=== PATIENT | female | born 1970 | race African-American/Black ===

== ENCOUNTER 2020-08-07 09:48 | Outpatient (REF) | payer MEDICAID, SELFPAY ==
--- NOTE | ~2020-08-07 | XR_ITS ---
EXAMINATION: XR KNEE, LEFT CLINICAL INFORMATION: Chronic knee pain, worsening the past few months COMPARISON: None TECHNIQUE: Four views of the left knee. This includes AP upright view. FINDINGS: No acute fracture or subluxation. There is moderate narrowing at the medial and patellofemoral compartments. Prominent tricompartmental marginal osteophytes. No joint effusion. The soft tissues are unremarkable. XR/XR knee LT 4V IMPRESSION: Moderate to severe tricompartmental degenerative changes, greatest at the medial and patellofemoral compartments. Prominent osteophytes are present.
== END 2020-08-07 09:49 | disposition home or self-care (01) ==
LOC: HO.XRAY 09:48
PROVIDERS: PCP Nurse Practitioner Family; Visit Provider Nurse Practitioner Family
DX: M25.562 Pain in left knee (principal)
CPT/HCPCS: 73564

== ENCOUNTER → 2020-08-30 09:54 | Outpatient (BNVA) | payer MEDICAID, SELFPAY | PROVIDERS: Visit Provider Nurse Practitioner ==

== ENCOUNTER 2020-09-01 08:12 | Outpatient (REF) | payer MEDICAID, SELFPAY | END 2020-09-01 08:13 | disposition home or self-care (01) | LOC: HO.MDS 08:12 | PROVIDERS: PCP Nurse Practitioner Family; Visit Provider Internal Medicine | DX: D50.9 Iron deficiency anemia, unspecified (principal) | CPT/HCPCS: 96365; 96366; J1200; J1750; Q0163 ==

== ENCOUNTER 2021-02-12 09:19 | Outpatient (REF) | payer MEDICAID, SELFPAY ==
[2021-02-12 16:23] LABS: CT PCR NOT DETECTED (Not Detect.); NG PCR NOT DETECTED (Not Detect.)
== END 2021-02-12 09:20 | disposition home or self-care (01) ==
LOC: HO.LAB 09:19
PROVIDERS: Visit Provider Obstetrics & Gynecology
DX: Z01.419 Encounter for gynecological examination (general) (routine) without abnormal findings (principal); N92.0 Excessive and frequent menstruation with regular cycle; N93.9 Abnormal uterine and vaginal bleeding, unspecified
CPT/HCPCS: 87491; 87591

== ENCOUNTER 2021-02-14 10:25 | Outpatient (REF) | payer MEDICAID, SELFPAY ==
--- NOTE | ~2021-02-14 | US_ITS ---
EXAMINATION: US PELVIS CLINICAL INFORMATION: Abnormal uterine and vaginal bleeding. COMPARISON: None TECHNIQUE: Ultrasound of the pelvis is performed using both transabdominal and transvaginal transducers along with Doppler. Transvaginal imaging is performed due to inadequate visualization transabdominally. FINDINGS: The uterus is anteverted and retroflexed measuring 12.9 cm in length, 5.4 cm in AP and 8.1 cm in transverse dimension. There is a hypoechoic lesion in the upper anterior uterus measuring 3.7 x 2.6 x 3.0 cm consistent with fibroid. Previously it measured 3.0 3.1 x 2.6 cm. A second lesion in the left fundus measures 5.3 x 5.6 x 4.6 cm. Previously it measured 2.9 x 2.2 x 3.7 cm. The endometrial thickness measures 0.9 cm. The right ovary measures 1.9 x 1.4 x 2.3 cm on the transabdominal view. Previously it measured 3.9 x 2.0 x 2.1 cm. The left ovary is not seen transabdominally. On transvaginal examination it measures 5.8 x 2.3 x 4.4 cm. Previously it measured 4.7 x 2.2 x 3.1 cm. There is an anechoic cyst measuring 2.9 x 2.1 x 2.9 cm. There is an adjacent hyperechoic area measuring 0.9 x 0.7 x 0.8 cm, likely a dermoid. US/US pelvic and transvaginal IMPRESSION: There are two uterine fibroids visualized. The left fundal fibroid has slightly increased in size. The right ovary is unremarkable. Suspect left ovarian dermoid with adjacent cyst. No free fluid in the cul-de-sac.
== END 2021-02-14 10:26 | disposition home or self-care (01) ==
LOC: HO.US 10:25
PROVIDERS: Visit Provider Obstetrics & Gynecology
DX: N93.9 Abnormal uterine and vaginal bleeding, unspecified (principal)
CPT/HCPCS: 76830; 76856

== ENCOUNTER 2021-02-15 08:13 | Outpatient (REF) | payer MEDICAID, SELFPAY ==
--- NOTE | ~2021-02-15 | XR_ITS ---
EXAMINATION: XR KNEE STANDING BILATERAL XR KNEE RIGHT XR KNEE LEFT CLINICAL INFORMATION: Right and left knee pain COMPARISON: Radiographs of left knee from 08/07/2020 TECHNIQUE: AP standing view both knees Right knee, 2 views (lateral and patellar sunrise views) Left knee, 2 views FINDINGS: AP STANDING VIEW BILATERAL KNEES Intact metallic abena of the proximal right tibial metadiaphysis, presumably from remote healed osteotomy or treatment of old fracture. Also, there appears to be an old, healed fracture of the mildly deformed proximal right fibular diaphysis. There is abnormal [id number] sloping of the right medial tibial plateau. Tricompartmental osteophyte formation from moderate-to severe osteoarthritis of the right knee. At the left degenerated knee, there is chronic, severe loss of the medial tibiofemoral joint space (with genu varus deformity) and tricompartmental osteophyte formation. RIGHT KNEE The findings in the right knee are as described above. There is tricompartmental osteoarthritis and apparent trace knee joint effusion. No acute fracture or subluxation. The sunrise view shows the patella to be well-positioned within the trochlear groove. LEFT KNEE No acute abnormality compared to 08/07/2020. No fracture or subluxation. No joint effusion. Small, 0.4 cm ossific body is present in the posterior knee joint. XR/XR knee RT 2V IMPRESSION: At the left knee, there is chronic, severe osteoarthritis of the patellofemoral and medial tibiofemoral compartments, and moderate osteoarthritis of the lateral tibiofemoral compartment. At the right knee, there is moderate to severe tricompartmental osteoarthritis, chronic posttraumatic deformity of the proximal tibia and fibula, and abnormal medial downsloping of the medial tibial plateau.
--- NOTE | ~2021-02-15 | XR_ITS ---
EXAMINATION: XR KNEE STANDING BILATERAL XR KNEE RIGHT XR KNEE LEFT CLINICAL INFORMATION: Right and left knee pain COMPARISON: Radiographs of left knee from 08/07/2020 TECHNIQUE: AP standing view both knees Right knee, 2 views (lateral and patellar sunrise views) Left knee, 2 views FINDINGS: AP STANDING VIEW BILATERAL KNEES Intact metallic abena of the proximal right tibial metadiaphysis, presumably from remote healed osteotomy or treatment of old fracture. Also, there appears to be an old, healed fracture of the mildly deformed proximal right fibular diaphysis. There is abnormal [id number] sloping of the right medial tibial plateau. Tricompartmental osteophyte formation from moderate-to severe osteoarthritis of the right knee. At the left degenerated knee, there is chronic, severe loss of the medial tibiofemoral joint space (with genu varus deformity) and tricompartmental osteophyte formation. RIGHT KNEE The findings in the right knee are as described above. There is tricompartmental osteoarthritis and apparent trace knee joint effusion. No acute fracture or subluxation. The sunrise view shows the patella to be well-positioned within the trochlear groove. LEFT KNEE No acute abnormality compared to 08/07/2020. No fracture or subluxation. No joint effusion. Small, 0.4 cm ossific body is present in the posterior knee joint. XR/XR knee LT 2V IMPRESSION: At the left knee, there is chronic, severe osteoarthritis of the patellofemoral and medial tibiofemoral compartments, and moderate osteoarthritis of the lateral tibiofemoral compartment. At the right knee, there is moderate to severe tricompartmental osteoarthritis, chronic posttraumatic deformity of the proximal tibia and fibula, and abnormal medial downsloping of the medial tibial plateau.
--- NOTE | ~2021-02-15 | XR_ITS ---
EXAMINATION: XR KNEE STANDING BILATERAL XR KNEE RIGHT XR KNEE LEFT CLINICAL INFORMATION: Right and left knee pain COMPARISON: Radiographs of left knee from 08/07/2020 TECHNIQUE: AP standing view both knees Right knee, 2 views (lateral and patellar sunrise views) Left knee, 2 views FINDINGS: AP STANDING VIEW BILATERAL KNEES Intact metallic abena of the proximal right tibial metadiaphysis, presumably from remote healed osteotomy or treatment of old fracture. Also, there appears to be an old, healed fracture of the mildly deformed proximal right fibular diaphysis. There is abnormal [id number] sloping of the right medial tibial plateau. Tricompartmental osteophyte formation from moderate-to severe osteoarthritis of the right knee. At the left degenerated knee, there is chronic, severe loss of the medial tibiofemoral joint space (with genu varus deformity) and tricompartmental osteophyte formation. RIGHT KNEE The findings in the right knee are as described above. There is tricompartmental osteoarthritis and apparent trace knee joint effusion. No acute fracture or subluxation. The sunrise view shows the patella to be well-positioned within the trochlear groove. LEFT KNEE No acute abnormality compared to 08/07/2020. No fracture or subluxation. No joint effusion. Small, 0.4 cm ossific body is present in the posterior knee joint. XR/XR knee standing BI IMPRESSION: At the left knee, there is chronic, severe osteoarthritis of the patellofemoral and medial tibiofemoral compartments, and moderate osteoarthritis of the lateral tibiofemoral compartment. At the right knee, there is moderate to severe tricompartmental osteoarthritis, chronic posttraumatic deformity of the proximal tibia and fibula, and abnormal medial downsloping of the medial tibial plateau.
== END 2021-02-15 08:14 | disposition home or self-care (01) ==
LOC: HO.HOSX 08:13
PROVIDERS: Visit Provider Physician Assistant
DX: M17.12 Unilateral primary osteoarthritis, left knee (principal); M25.561 Pain in right knee
CPT/HCPCS: 73560; 73565; 99202

== ENCOUNTER 2021-03-07 10:06 | Outpatient (REF) | payer MEDICAID, SELFPAY | END 2021-03-07 10:07 | disposition home or self-care (01) | LOC: HO.LAB 10:06 | PROVIDERS: Visit Provider Obstetrics & Gynecology | DX: N92.0 Excessive and frequent menstruation with regular cycle (principal) | CPT/HCPCS: 58100; 88305 ==

== ENCOUNTER 2021-03-16 10:28 | Outpatient (REF) | payer MEDICAID, SELFPAY ==
--- NOTE | ~2021-03-16 | MM_ITS ---
EXAMINATION: MM SCREENING DIGITAL BREAST TOMOSYNTHESIS, BILATERAL CLINICAL INFORMATION: Screening. Asymptomatic. Benign left stereotactic biopsy 05/12/2018 (Benign breast tissue with foci of usual ductal hyperplasia and associated microcalcifications and nonspecific periductal and perivascular chronic inflammation. Additional tissue received shows benign fibrofatty breast tissue without microcalcifications). The lifetime risk of breast cancer based on the Tyrer-Cuzick Model is 11%. COMPARISON: Mammography: 12/31/2018, 11/27/2018, 05/12/2018, 04/30/2018, 10/23/2017 TECHNIQUE: Digital breast tomosynthesis is performed in both the craniocaudal and mediolateral oblique views along with computer-aided detection (CAD). Synthesized 2D images are generated from the tomosynthesis. FINDINGS: There are scattered areas of fibroglandular density (ACR BI-RADS breast composition Category b). There are no significant masses, abnormal calcifications, or other abnormalities. Parenchymal pattern is similar to prior studies. No developing density. There are 2 biopsy clip markers left breast mid upper outer quadrant and mid 6:00 position, respectively. No significant changes. MM/MM tomosynthesis screening BI IMPRESSION: No mammographic evidence of malignancy. ASSESSMENT: BI-RADS 1: Negative RECOMMENDATION: Routine annual mammography screening. This patient's information was entered into a reminder system with a target due date for their next mammogram.
== END 2021-03-16 10:29 | disposition home or self-care (01) ==
LOC: HO.MAMMO 10:28
PROVIDERS: Visit Provider Obstetrics & Gynecology
DX: Z12.31 Encounter for screening mammogram for malignant neoplasm of breast (principal)
CPT/HCPCS: 77063; 77067

== ENCOUNTER 2021-04-04 09:42 | Outpatient (REF) | payer MEDICAID, SELFPAY ==
[2021-04-04 10:49] LABS: Hematocrit 39.3 % (37.0-47.0); Hemoglobin 12.2 g/dl (12.0-16.0); Mean Corpuscular Hemoglobin 28.4 pg (27.0-33.0); Mean Corpuscular Volume 91.6 fL (80.0-98.0); Mean Platelet Volume 11.4 fL (9.4-12.3); Platelet Count 218 X10*3/uL (160-400); Red Blood Count 4.29 X10*6/uL (4.20-5.50); Red Cell Distribution Width 13.9 % (11.0-16.0); White Blood Count 13.3 X10*3/uL (4.8-10.8)
[2021-04-05 12:52] LABS: CA-125 46 U/mL (<35)
== END 2021-04-04 09:43 | disposition home or self-care (01) ==
LOC: HO.LAB 09:42
PROVIDERS: Visit Provider Obstetrics & Gynecology
DX: N92.0 Excessive and frequent menstruation with regular cycle (principal); N83.292 Other ovarian cyst, left side; D21.9 Benign neoplasm of connective and other soft tissue, unspecified
CPT/HCPCS: 36415; 85027; 86304; 99212

== ENCOUNTER → 2021-04-05 14:06 | Outpatient (BNVA) | payer MEDICAID, SELFPAY | PROVIDERS: Visit Provider Obstetrics & Gynecology ==

== ENCOUNTER 2021-11-26 08:03 | Outpatient (REF) | payer MEDICAID, SELFPAY | END 2021-11-26 08:04 | disposition home or self-care (01) | LOC: HO.MDS 08:03 | PROVIDERS: Visit Provider Internal Medicine | DX: D50.9 Iron deficiency anemia, unspecified (principal) | CPT/HCPCS: 96365; 96366; J1200; J1750; Q0163 ==

== ENCOUNTER 2022-03-21 10:13 | Outpatient (REF) | payer MEDICAID, SELFPAY ==
--- NOTE | ~2022-03-21 | MM_ITS ---
EXAMINATION: MM SCREENING DIGITAL BREAST TOMOSYNTHESIS, BILATERAL CLINICAL INFORMATION: Screening. Asymptomatic. The lifetime risk of breast cancer based on the Tyrer-Cuzick Model is 11%. COMPARISON: Mammography: 03/16/2021, 12/31/2018, 11/27/2018, 05/12/2018, 04/30/2018. TECHNIQUE: Digital breast tomosynthesis is performed in both the craniocaudal and mediolateral oblique views along with computer-aided detection (CAD). Synthesized 2D images are generated from the tomosynthesis. Additional left CC and left MLO views are provided. FINDINGS: There are scattered areas of fibroglandular density (ACR BI-RADS breast composition Category b). There are no significant masses, abnormal calcifications, or other abnormalities. Parenchymal pattern is similar to prior studies. There is no developing density or architectural abnormality. There are biopsy clip markers again noted posterior upper outer left breast and mid central 6:00 position. The axilla and skin contours are unremarkable. No significant changes. MM/MM tomosynthesis screening BI IMPRESSION: No mammographic evidence of malignancy. ASSESSMENT: BI-RADS 1: Negative RECOMMENDATION: Routine annual mammography screening. This patient's information was entered into a reminder system with a target due date for their next mammogram.
== END 2022-03-21 10:14 | disposition home or self-care (01) ==
LOC: HO.MAMMO 10:13
PROVIDERS: Visit Provider Obstetrics & Gynecology
DX: Z12.31 Encounter for screening mammogram for malignant neoplasm of breast (principal)
CPT/HCPCS: 77063; 77067

== ENCOUNTER → 2022-07-09 09:53 | Outpatient (BNVA) | payer MEDICAID, SELFPAY | PROVIDERS: PCP Registered Nurse; Visit Provider Obstetrics & Gynecology | DX: R10.2 Pelvic and perineal pain (principal) | CPT/HCPCS: 99212 ==

== ENCOUNTER 2022-07-17 14:59 | Outpatient (REF) | payer MEDICAID, SELFPAY ==
[2022-07-17 16:16] LABS: Blood Urea Nitrogen 11 mg/dL (9-16); Estimated Glomerular Filt Rate > 60
== END 2022-07-17 15:00 | disposition home or self-care (01) ==
LOC: HO.LAB 14:59
PROVIDERS: Visit Provider Obstetrics & Gynecology
DX: R10.2 Pelvic and perineal pain (principal)
CPT/HCPCS: 36415; 82565; 84520

== ENCOUNTER 2022-07-29 09:38 | Outpatient (REF) | payer MEDICAID, SELFPAY ==
--- NOTE | ~2022-07-29 | CT_ITS ---
EXAMINATION: CT PELVIS WITH CONTRAST CLINICAL INFORMATION: R10.2 - Pelvic and perineal pain. History left fluoroscopic hysterectomy, bilateral bilateral salpingectomy and left oophorectomy, benign pathology. Age 52. COMPARISON: Ultrasound pelvis 02/14/2021 TECHNIQUE: Helical scanning was performed with submillimeter collimation through the pelvis with the use of oral contrast and during bolus intravenous injection of 85 mL of Omnipaque 350 intravenous contrast. Sagittal and coronal multiplanar 2-D reconstructions were obtained. This CT examination was performed using dose optimization techniques as appropriate, variously including the following: *Automated exposure control *Adjustment of mA and/or kV according to patient size (this includes techniques or standardized protocols for targeted exams where dose is matched to indication/reason for exam; i.e. extremities or head) *Use of iterative reconstruction technique DLP: 769 mGy-cm FINDINGS: There has been prior hysterectomy, bilateral salpingectomy, and left oophorectomy. There are no inflammatory changes in the pelvis or ascites or solid pelvic mass. The perineum is unremarkable. There is a smooth oval benign cyst upper right lateral pelvis 14 HU attenuation and 2.4 cm in diameter, higher than expected for ovarian cyst, possibly a mesenteric or enteric cyst. There are no inflammatory changes in the bowel or mesentery. No bowel wall thickening. No ascites. Incidental intraperitoneal tubing anterior right lower quadrant corresponds to the gastric lap band procedure noted on coronal topogram. No retroperitoneal, deep pelvic, or inguinal adenopathy. No inguinal hernia. Vasculature is unremarkable. Small fat-containing umbilical hernia measures approximately 3.1 x 1.6 x 2.6 cm. No acute bony abnormality. There are degenerative facet changes lower lumbar spine. CT/CT pelvis w IV con IMPRESSION: 1. Prior hysterectomy and left oophorectomy. No inflammatory changes or ascites. 2. Small benign cyst upper right lateral pelvis 2.4 cm, higher than expected for ovarian, possibly enteric or mesenteric cyst. 3. Small fat-containing umbilical hernia 3.1 x 1.6 x 2.6 cm.
[2022-07-29] MEDS: iohexoL 350 MG/ML 100 ML INFUS..BTL 85 ML IV (12:04)
[2022-07-29] MEDS: Barium Sulfate Oral (Mocha) 450 ML ORAL.SUSP PO (12:06)
== END 2022-07-29 09:39 | disposition home or self-care (01) ==
LOC: HO.CT 09:38
PROVIDERS: PCP Registered Nurse; Visit Provider Obstetrics & Gynecology
DX: R10.2 Pelvic and perineal pain (principal)
CPT/HCPCS: 72193; Q9967

== ENCOUNTER → 2022-08-12 08:41 | Outpatient (BNVA) | payer MEDICAID, SELFPAY | PROVIDERS: Visit Provider Obstetrics & Gynecology | DX: K42.9 Umbilical hernia without obstruction or gangrene (principal) | CPT/HCPCS: 99212 ==

== ENCOUNTER → 2022-08-23 09:25 | Outpatient (BNVA) | payer MEDICAID, SELFPAY | PROVIDERS: Referring Provider Obstetrics & Gynecology; Visit Provider Surgery | DX: K42.9 Umbilical hernia without obstruction or gangrene (principal) | CPT/HCPCS: 99202 ==

== ENCOUNTER 2022-09-06 06:06 | Day surgery (SDC) | payer MEDICAID, SELFPAY ==
[2022-09-03 10:11] VITALS: BMI 43.4
[2022-09-06] VITALS (7 sets, daily range): BP systolic 115–129; BP diastolic 62–82; PULSE 58–75; RESP 16–20; TEMP 36.1–37.3; O2SAT 98–99
--- NOTE | 2022-09-06 05:55 | MHC.SHP ---
Pre-Procedural Eval Section A Date of Service: 09/06/22 The patient is an INPATIENT: No Changes since office visit: No Cold of Flu in the past 2 weeks, No New Medical Problems, No Changes in Medication and No Patient answered all questions Section B Chief Complaint: Umbilical hernia without obstruction or gangrene Allergies: Allergies Allergy/AdvReac Type Severity Reaction Status Date / Time acetaminophen [From PERCOCET] Allergy Intermediate HALLUCINATI Verified 08/23/22 09:38 ONS oxycodone [From PERCOCET] Allergy Intermediate HALLUCINATI Verified 08/23/22 09:38 ONS Plan I have reviewed the history and physical and performed a pertinent physical examination on my patient. No changes have occurred unless specified. Time Spent With Patient Time: Total time managing care of this patient today ____ minutes.
[2022-09-06] MEDS: Lactated Ringers 1,000 ML 50 ML IVCONT (06:49)
--- NOTE | 2022-09-06 07:25 | HO.ANESPROP2 ---
[facility] Active Problems Active Problems: All Active Problems (Updated 08/12/22 @ 09:05 by Tavares Alvarado MD) Umbilical hernia (Acute) Pelvic pain (Acute) Anemia (Chronic) Chronic superficial gastritis with hemorrhage (Acute) Esophageal ulcer (Acute) Tubular adenoma of colon (Acute) Well woman exam (Acute) Menorrhagia (Acute) Arthritis of left knee (Acute) Complex cyst of left ovary (Acute) Myoma (Acute) Past Medical History Medical History Anemia Gastritis HTN (hypertension) IBS (irritable bowel syndrome) Morbid obesity Tubular adenoma Family History Family History Father Prostate cancer Maternal Aunt Breast cancer Brother Prostate cancer Family history of problems with anesthesia: No Surgical History Surgical History H/O right knee surgery Hx of section Hx of laparoscopic gastric banding S/P partial hysterectomy Tubal ligation status History of Problems with Anesthesia: No Social History Social History Household Members: None Housing: Apartment Alcohol intake: never Patient Tobacco Use Status: Never used Tobacco Use of substances other than those prescribed or required for medical reasons: No Are you DNR?: No Advance Directives: No Advance Directives Information Provided: No Recently lost weight without trying: No Nutrition Risks: No Nutritional Risk service: No Current occupational status: disabled Current occupation: rt handed Meds Allergies Allergy/AdvReac Type Severity Reaction Status Date / Time acetaminophen [From PERCOCET] Allergy Intermediate HALLUCINATI Verified 08/23/22 09:38 ONS oxycodone [From PERCOCET] Allergy Intermediate HALLUCINATI Verified 08/23/22 09:38 ONS Active Medications: Current Medications Lactated Ringer's (Lr) 1,000 mls @ 50 mls/hr IVCONT .Q20H RAMSES Last Admin: 09/06/22 06:49 Dose: 50 mls/hr Home Medications Medication Instructions Recorded Confirmed Last Taken Type bupropion HCl 75 mg tablet 150 mg PO DAILY 08/21/20 09/06/22 09/06/22 History cholecalciferol (vitamin D3) 50 50 mcg PO DAILY 08/21/20 08/23/22 Unknown History mcg (2,000 unit) tablet (Vitamin D3) famotidine 20 mg tablet 20 mg PO DAILY 08/21/20 08/23/22 Unknown History omeprazole magnesium 20 mg 20 mg PO DAILY 08/21/20 09/06/22 09/06/22 History capsule,delayed release sertraline 25 mg tablet 25 mg PO DAILY 08/21/20 08/23/22 Unknown History hydroxyzine HCl 50 mg tablet 50 mg PO Q6-8H anxiety 11/13/21 09/06/22 09/06/22 History Exam Exam Date and Time: September 06, 2022 0725 Height,Weight and Vital Signs: Height 5 ft 1.5 in Weight 105.999 kg Last Vital Signs Temp 99.2 F 09/06/22 06:35 Pulse 75 09/06/22 06:35 Resp 16 09/06/22 06:35 BP 116/82 09/06/22 06:35 Pulse Ox 98 09/06/22 06:35 O2 Del Method Room Air 09/06/22 06:35 Airway Mallampati Class: II TM Dist: >3cm Neck ROM: Full Denture: Upper Loose/Missing/Broken Teeth: Yes and Lower Assessment and Plan Assessment Anesthesia Assessment: Anesthesia Plan Discussed and Chart Reviewed Final Anesthetic Review Family History of Problems with Anesthesia: No History of Problems with Anesthesia: No NPO: Yes ASA Class: III Final Preanesthetic Review: No Changes in Pt Med Stat, Meds/Allgs Chart Reviewed, Consent Obtained/Reviewed and Anes Risks/Benef Reviewed Patient Risk: Low Procedure Risk: Low Anesthetic Plan Anesthetic Plan: GA Disposition: Standard PACU
--- NOTE | 2022-09-06 08:17 | P.OP_ITS ---
Operative Note Operative Note Date of Service: 09/06/22 Narrative: Preoperative diagnosis: []Incarcerated umbilical hernia Postop diagnosis: [] same Procedure [] repair incarcerated umbilical hernia with Bard mesh Surgeon: [] Kyree Senior Clinical Data Manager: [] gillian Hughes Type of Anesthesia: [] general Indication for surgery: [] symptomatic umbilical hernia Findings: [] incarcerated umbilical hernia with omental contents. Markedly corpulent abdomen Patient is brought to the operating room, placed on the operating table in supine position, and after an adequate level of general anesthesia was induced, the patient's abdomen which was quite corpulent was prepped and draped in usual sterile fashion. Using an infraumbilical curvilinear incision, this carried down through skin, subcutaneous tissue, down to the fascia where a hernia sac with incarcerated omental contents was found. Sac was circumferentially dissected free from T the posterior aspect of the umbilicus and the fascia and that opened. Omental contents were amputated along with the hernia sac. The hernia defect was circumferentially dissected clear of any adhesions. Bard mesh was placed in the defect and the superficial layer of the mesh was circumferentially sutured to the surrounding fascia using interrupted 0 tycron sutures. At completion the procedure, mesh was in good position with no tension. Wound was irrigated, and hemostasis secured. The wound Was closed in the following manner; posterior aspect of the umbilicalicus was tacked to the wound floor using interrupted 2-0 Vicryl sutures. Interrupted inverted deep dermal 2-0 Vicryl sutures followed by running subcuticular 4-0 Monocryl were placed. Wound was infiltrated with 0.5% Marcaine with epinephrine a completion. Steri-Strips and sterile dressing was applied. Sponge, needle, and instrument counts were reported to be correct. Patient tolerated the procedure well and emerged from anesthesia stable condition. EBL minimum
== END 2022-09-06 10:00 | disposition home or self-care (01) ==
PROVIDERS: PCP Registered Nurse; Visit Provider Surgery
PROC: (CPT 49594; principal; 2022-09-06 07:30)
DX: K42.0 Umbilical hernia with obstruction, without gangrene (principal); E65 Localized adiposity; E66.01 Morbid (severe) obesity due to excess calories; Z68.41 Body mass index [BMI] 40.0-44.9, adult; I10 Essential (primary) hypertension; K58.9 Irritable bowel syndrome, unspecified; Z79.899 Other long term (current) drug therapy; Z88.8 Allergy status to other drugs, medicaments and biological substances; Z98.84 Bariatric surgery status; Z90.710 Acquired absence of both cervix and uterus
CPT/HCPCS: 49594; 88304; C1781; J0690; J1100; J1885; J2250; J2405; J3010

== ENCOUNTER → 2022-09-13 09:51 | Outpatient (BNVA) | payer MEDICAID, SELFPAY | PROVIDERS: PCP Registered Nurse; Visit Provider Surgery ==

== ENCOUNTER 2022-10-30 13:31 | Outpatient (REF) | payer MEDICAID, SELFPAY ==
[2022-10-30 18:41] LABS: CT PCR NOT DETECTED (Not Detect.); NG PCR NOT DETECTED (Not Detect.)
[2022-10-31 08:55] LABS: BV Int Neg Control Negative (Negative); BV Int Pos Control Positive (Positive)
[2022-11-02 01:04] LABS: HPV mRNA E6/E7 rflx Not Detected (Not Detected)
== END 2022-10-30 13:32 | disposition home or self-care (01) ==
LOC: HO.LNP 13:31
PROVIDERS: PCP Registered Nurse; Visit Provider Advanced Practice Midwife
DX: Z01.419 Encounter for gynecological examination (general) (routine) without abnormal findings (principal); Z11.51 Encounter for screening for human papillomavirus (HPV)
CPT/HCPCS: 0353U; 87480; 87510; 87624; 87660; 88142

== ENCOUNTER 2023-01-29 10:13 | Outpatient (REF) | payer MEDICAID, SELFPAY ==
[2023-01-29 11:30] LABS: MANUAL DIFF FLAG NO
[2023-01-29 11:54] LABS: Basophils Absolute Auto 0.1 X10*3/uL (0.0-0.2); Basophils Percent Auto 0.8 % (0-2); Eosinophils Absolute Auto 0.4 X10*3/uL (0.0-0.4); Eosinophils Percent Auto 5.2 % (0-4); Hematocrit 40.1 % (37.0-47.0); Hemoglobin 12.5 g/dl (12.0-16.0); Imm Gran Abs Auto 0.01 X10*3/uL (0.00-0.03); Imm Gran Pct Auto 0.1 % (0.0-0.4); Lymphocytes Absolute Auto 2.1 X10*3/uL (1.2-4.9); Lymphocytes Percent Auto 28.4 % (20-40); Mean Corpuscular HGB Conc 31.2 g/dl (31.0-35.0); Mean Corpuscular Hemoglobin 27.8 pg (27.0-33.0); Mean Corpuscular Volume 89.3 fL (80.0-98.0); Mean Platelet Volume 10.1 fL (9.4-12.3); Monocytes Absolute Auto 0.3 X10*3/uL (0.1-1.2); Monocytes Percent Auto 4.4 % (2-11); Neutrophils Absolute Auto 4.4 x10*3/uL (2.0-8.3); Neutrophils Percent Auto 61.1 % (45-73); Platelet Count 380 X10*3/uL (160-400); Red Blood Count 4.49 X10*6/uL (4.20-5.50); Red Cell Distribution Width 13.4 % (11.0-16.0); White Blood Count 7.3 X10*3/uL (4.8-10.8)
[2023-01-29 11:56] LABS: Estimated Average Glucose 97 mg/dL
[2023-01-29 12:31] LABS: Alanine Aminotransferase 12 U/L (0-31); Albumin Level 3.6 g/dL (3.5-5.0); Alkaline Phosphatase 96 U/L (39-117); Anion Gap 9 (12-20); Aspartate Amino Transferase 15 U/L (5-31); Bilirubin Total 0.5 mg/dL (0.0-1.0); Blood Urea Nitrogen 8 mg/dL (9-16); Calcium 9.4 mg/dL (8.4-10.2); Carbon Dioxide 26 mmol/L (22-29); Chloride 108 mmol/L (96-108); Cholesterol 192 mg/dL (<200); Estimated Glomerular Filt Rate > 60; Glucose Random 79 mg/dL (60-115); HDL Cholesterol 51 mg/dL (>40); Iron 91 mcg/dL (30-160); LDL Cholesterol Calculated 125 mg/dL (<100); Percent Iron Saturation 35 % (15-50); Potassium 4.3 mmol/L (3.3-5.1); Sodium 139 mmol/L (135-145); Total Iron Binding Capacity 263 mcg/dL (228-428); Total Protein 6.6 g/dL (6.5-8.0); Triglycerides 81 mg/dL (<150); Unsaturated Iron Binding 172 ug/dL
[2023-01-29 12:40] LABS: ~HepC Num1 0.14 S/CO (0.00-0.79); ~Hepatitis C Antibody Nonreactive (Nonreactive)
[2023-01-29 12:42] LABS: Syphilis Screen Nonreactive (Nonreactive)
[2023-01-29 12:43] LABS: HBS Num1 0.24 mIU/mL (0-7.99); HBc Num1 0.25 S/CO (0.00-0.79); HBsAGNum1 0.34 S/CO (0.00-0.99); HIV AB/AG Nonreactive (Nonreactive); HIV Num 1 0.05 S/CO (0.00-0.99); Hepatitis B Core Antibody Nonreactive (Nonreactive); Hepatitis B Surface Antigen Negative (Negative); ~Hepatitis B Surface Antibody NONREACTIVE (Nonreactive)
[2023-01-29 12:48] LABS: Ferritin 47 ng/mL (10-250); TSH reflex Free T4 1.63 uIU/mL (0.32-4.0); Vitamin D 25-OH Total 16.4 ng/mL (>30)
[2023-01-29 12:52] LABS: Folate 7.4 ng/mL (> or = 4.0); Vitamin B12 325 pg/mL (200-900)
[2023-01-29 15:13] LABS: CT PCR NOT DETECTED (Not Detect.); NG PCR NOT DETECTED (Not Detect.)
== END 2023-01-29 10:14 | disposition home or self-care (01) ==
LOC: HO.HHCL 10:13
PROVIDERS: Visit Provider Student in an Organized Health Care Education/Training Program
DX: Z00.00 Encounter for general adult medical examination without abnormal findings (principal); Z11.4 Encounter for screening for human immunodeficiency virus [HIV]
CPT/HCPCS: 0353U; 80053; 80061; 82306; 82607; 82728; 82746; 83036; 83540; 84443; 85025; 86704; 86706; 86780; 86803; 87340; 87389

== ENCOUNTER 2023-01-29 10:46 | Outpatient (REF) | payer MEDICAID, SELFPAY ==
--- NOTE | ~2023-01-29 | XR_ITS ---
EXAMINATION: XR SHOULDER, LEFT CLINICAL INFORMATION: Shoulder pain, decreased range of motion COMPARISON: None available. TECHNIQUE: AP external rotation, Grashey, scapular Y, and axillary views of the left shoulder. FINDINGS: No acute fracture or dislocation. Moderate-severe glenohumeral joint osteoarthritis. Question widening of the acromioclavicular distance on one of the views. No abnormal soft tissue calcification. No suspicious lung finding seen. XR/XR shoulder LT min 2V IMPRESSION: Moderate-severe glenohumeral joint osteoarthritis. Question acromioclavicular distance widening. Dedicated AC joint x-rays for further evaluation as clinically indicated.
== END 2023-01-29 10:47 | disposition home or self-care (01) ==
LOC: HO.HHCX 10:46
PROVIDERS: Visit Provider Student in an Organized Health Care Education/Training Program
DX: M25.512 Pain in left shoulder (principal)
CPT/HCPCS: 73030

== ENCOUNTER 2023-03-25 09:55 | Outpatient (REF) | payer MEDICAID, SELFPAY ==
--- NOTE | ~2023-03-25 | MM_ITS ---
EXAMINATION: MM SCREENING DIGITAL BREAST TOMOSYNTHESIS, BILATERAL CLINICAL INFORMATION: Screening. Asymptomatic. COMPARISON: Mammography: This study is compared with prior exams dating back to 2018. TECHNIQUE: Digital breast tomosynthesis is performed in both the craniocaudal and mediolateral oblique views along with computer-aided detection (CAD). Synthesized 2D images are generated from the tomosynthesis. FINDINGS: There are scattered areas of fibroglandular density (ACR BI-RADS breast composition Category b). There are grouped calcifications in the posterior nipple line, an anterior depth. Further mammographic evaluation of these calcifications at magnification is advised. In the left breast, no their are no significant masses, abnormal calcifications, or other abnormalities. There are 2 tissue markers in the left breast from prior benign percutaneous biopsies MM/MM tomosynthesis screening BI IMPRESSION: Right breast calcifications warrant additional mammographic imaging magnification. Benign findings left breast. ASSESSMENT: BI-RADS BI-RADS 0 - Incomplete: Needs additional Imaging. RECOMMENDATION: Additional views of the right breast. Radiology department staff will contact the patient for additional imaging. Additional Imaging required This examination should not preclude the clinical evaluation of a suspicious palpable abnormality. This patient's information was entered into a reminder system with a target due date for their next mammogram.
== END 2023-03-25 09:56 | disposition home or self-care (01) ==
LOC: HO.MAMMO 09:55
PROVIDERS: PCP Student in an Organized Health Care Education/Training Program; Visit Provider Registered Nurse
DX: Z12.31 Encounter for screening mammogram for malignant neoplasm of breast (principal)
CPT/HCPCS: 77063; 77067

== ENCOUNTER → 2023-03-25 10:00 | Outpatient (BNV) | payer MEDICAID, SELFPAY | PROVIDERS: PCP Student in an Organized Health Care Education/Training Program; Visit Provider Radiology Diagnostic Radiology | DX: Z12.31 Encounter for screening mammogram for malignant neoplasm of breast (principal) | CPT/HCPCS: 77063; 77067 ==

== ENCOUNTER → 2023-04-22 09:00 | Outpatient (BNV) | payer MEDICAID, SELFPAY | PROVIDERS: PCP Student in an Organized Health Care Education/Training Program; Visit Provider Radiology Diagnostic Radiology | DX: R92.1 Mammographic calcification found on diagnostic imaging of breast (principal) | CPT/HCPCS: 77065 ==

== ENCOUNTER 2023-04-22 09:08 | Outpatient (REF) | payer MEDICAID, SELFPAY ==
--- NOTE | ~2023-04-22 | MM_ITS ---
EXAMINATION: MM DIAGNOSTIC DIGITAL MAMMOGRAPHY, LEFT CLINICAL INFORMATION: Evaluate calcifications right breast. COMPARISON: Mammography: 03/25/2023 TECHNIQUE: Digital mammography is performed in the following views: Spot magnification right CC and ML views. FINDINGS: There are scattered areas of fibroglandular density (ACR BI-RADS breast composition Category b). In the right breast in the 11:30 o'clock axis, anterior one third, there are benign-appearing grouped calcifications with grossly coarse morphology. No pleomorphism, linear or branching forms. These are probably benign. Six-month follow-up recommended. MM/MM added views RT IMPRESSION: Probably benign right breast calcifications for which six-month follow-up recommended to include standard magnification views. ASSESSMENT: BI-RADS BI-RADS 3 - Probably benign finding(s) - 6 month follow-up suggested RECOMMENDATION: 6 Month F/U This patient's information was entered into a reminder system with a target due date for their next mammogram.
== END 2023-04-22 09:09 | disposition home or self-care (01) ==
LOC: HO.MAMMO 09:08
PROVIDERS: PCP Student in an Organized Health Care Education/Training Program; Visit Provider Student in an Organized Health Care Education/Training Program
DX: R92.1 Mammographic calcification found on diagnostic imaging of breast (principal)
CPT/HCPCS: 77065

== ENCOUNTER 2023-05-12 06:30 | Outpatient (REF) | payer MEDICAID, SELFPAY | END 2023-05-12 06:31 | disposition home or self-care (01) | LOC: HO.HOSX 06:30 | PROVIDERS: Visit Provider Physician Assistant | DX: M19.012 Primary osteoarthritis, left shoulder (principal); M75.82 Other shoulder lesions, left shoulder | CPT/HCPCS: 99212 ==

== ENCOUNTER 2023-05-12 09:54 | Outpatient (AMB) | payer MEDICAID, SELFPAY ==
--- NOTE | 2023-05-12 10:25 | A.OFFVIS_ITS ---
Intake Vital Signs 05/12/23 10:29 Height 5 ft 1.5 in Weight 235 lb BMI 43.7 Intake Visit Reasons: Newprob-Left shoulder pain Intake Note: Carla 53 yr old female who is right hand dominant, presents today for her left shoulder pain. States her pain started about 4 months ago. No injury she can recall. Pain is mainly by the back of her shoulder. At timed she has neck pain. Currently states she has limited ROM and is very painful. Patient has tried doing home exercise however she doesn't see a difference. Allergies oxycodone [From PERCOCET] Allergy (Intermediate, Verified 05/12/23 10:28) HALLUCINATIONS HPI Newprob-Left shoulder pain HPI Details 53-year-old right hand dominant female tanisha hernandez presents to the office today for evaluation of left shoulder pain for about 4 months. She states she has chronic pain and limited ROM in the posterior aspect of her shoulder which occasional radiates to her neck. She had tried home exercises which did not provide her any relief. She takes Tylenol for her pain. She has not had any recent injury. [facility] Medical History (Updated 05/12/23 @ 10:53 by Barbara Dunbar PA-C) Left inguinal hernia (09/06/22) Tubular adenoma Gastritis HTN (hypertension) Morbid obesity Anemia IBS (irritable bowel syndrome) Surgical History Umbilical hernia S/P partial hysterectomy H/O right knee surgery Hx of section Tubal ligation status Hx of laparoscopic gastric banding Family History Father Prostate cancer Maternal Aunt Breast cancer Brother Prostate cancer Social History Household Members: None Housing: Apartment Alcohol intake: never Patient Tobacco Use Status: Never used Tobacco service: No Current occupational status: disabled Current occupation: rt handed Female Reproductive History Menstrual Age of Menarche: 11 Review of Systems Const All systems reviewed & are unremarkable except as noted in HPI and below Physical Exam Vital Signs: BMI result Body Mass Index 43.7 Const General: cooperative and no acute distress Orientation/consciousness: patient oriented x3 Resp Effort & Inspection: normal respiratory effort and able to speak in complete sentences Cardio Peripheral pulses: Peripheral pulses 2+ throughout Neuro General: patient oriented x3 Extrem Other: Left shoulder normal to inspection. Tenderness over the bicipital groove and along the deltoid region of the shoulder. Forward flexion to 175, external rotation to 90, internal rotation to S1. Pain with RTC strength testing. Negative Riggs and cross body abduction. NVI. Results Reviewed Results Reviewed: Xrays of the left shoulder obtained on 01/19/23 show ghj oa Assessment & Plan Assessment & Plan (1) Arthritis of left shoulder region: Code(s): M19.012 - Primary osteoarthritis, left shoulder (2) Tendonitis of left rotator cuff: Code(s): M75.82 - Other shoulder lesions, left shoulder Plan We discussed options which include PT, NSAIDs and injections. The patient will defer on the injection today and proceed with PT and NSAIDs. If symptoms persist, the patient will contact me for an injection, otherwise, PRN. Orders: Orders PT Evaluation and Treatment Today M19.012 - Primary osteoarthritis, left shoulder, M75.82 - Other shoulder lesions, left shoulder Medications: New ibuprofen 800 mg PO Q8H PRN 90 tabs 3RF pain 30 days S52.209D - Unspecified fracture of shaft of unspecified ulna, subsequent encounter for closed fracture with routine healing Patient Instructions: Scribed for Barbara Dunbar PA-C, by [employer] certified ophthalmic medical technician, on 05/12/2023 at 11:30 AM EST. IBarbara PA-C, have personally reviewed and agree with the information entered by the scribe. Coding Level of Care Code New Pt Level 3 (88537) Diagnoses Arthritis of left shoulder region M19.012 Tendonitis of left rotator cuff M75.82
[2023-05-12 10:29] VITALS: BMI 43.7
== END 2023-05-12 11:05 | disposition home or self-care (01) ==
PROVIDERS: PCP Student in an Organized Health Care Education/Training Program; Visit Provider Physician Assistant
DX: M19.012 Primary osteoarthritis, left shoulder (principal); M75.82 Other shoulder lesions, left shoulder
CPT/HCPCS: 99213

== ENCOUNTER 2023-05-13 09:17 | Outpatient (REF) | payer MEDICAID, SELFPAY ==
[2023-05-13 10:33] LABS: MANUAL DIFF FLAG NO
[2023-05-13 11:47] LABS: Basophils Absolute Auto 0.1 X10*3/uL (0.0-0.2); Basophils Percent Auto 0.8 % (0-2); Eosinophils Absolute Auto 0.5 X10*3/uL (0.0-0.4); Hematocrit 40.1 % (37.0-47.0); Imm Gran Abs Auto 0.01 X10*3/uL (0.00-0.03); Imm Gran Pct Auto 0.2 % (0.0-0.4); Lymphocytes Absolute Auto 2.1 X10*3/uL (1.2-4.9); Lymphocytes Percent Auto 32.5 % (20-40); Mean Corpuscular HGB Conc 32.4 g/dl (31.0-35.0); Mean Corpuscular Hemoglobin 28.1 pg (27.0-33.0); Mean Corpuscular Volume 86.8 fL (80.0-98.0); Mean Platelet Volume 10.5 fL (9.4-12.3); Monocytes Absolute Auto 0.4 X10*3/uL (0.1-1.2); Monocytes Percent Auto 5.9 % (2-11); Neutrophils Absolute Auto 3.5 x10*3/uL (2.0-8.3); Neutrophils Percent Auto 53.6 % (45-73); Platelet Count 366 X10*3/uL (160-400); Red Blood Count 4.62 X10*6/uL (4.20-5.50); Red Cell Distribution Width 13.9 % (11.0-16.0); White Blood Count 6.6 X10*3/uL (4.8-10.8)
[2023-05-13 12:12] LABS: Alanine Aminotransferase 9 U/L (0-31); Albumin Level 3.7 g/dL (3.5-5.0); Alkaline Phosphatase 102 U/L (39-117); Anion Gap 12 (12-20); Aspartate Amino Transferase 15 U/L (5-31); Bilirubin Total 0.5 mg/dL (0.0-1.0); Blood Urea Nitrogen 12 mg/dL (9-16); Calcium 9.1 mg/dL (8.4-10.2); Carbon Dioxide 28 mmol/L (22-29); Chloride 106 mmol/L (96-108); Estimated Glomerular Filt Rate > 60; Glucose Random 77 mg/dL (60-115); Potassium 3.8 mmol/L (3.3-5.1); Sodium 142 mmol/L (135-145); Total Protein 6.9 g/dL (6.5-8.0)
== END 2023-05-13 09:18 | disposition home or self-care (01) ==
LOC: HO.LAB 09:17
PROVIDERS: PCP Student in an Organized Health Care Education/Training Program; Visit Provider Physician Assistant
DX: R10.9 Unspecified abdominal pain (principal); K21.9 Gastro-esophageal reflux disease without esophagitis
CPT/HCPCS: 36415; 80053; 85025; 99212

== ENCOUNTER 2023-05-13 09:17 | Outpatient (AMB) | payer MEDICAID, SELFPAY ==
--- NOTE | 2023-05-13 09:42 | A.OFFVIS_ITS ---
Intake Vital Signs 05/13/23 09:50 Height 5 ft 1.5 in Weight 233 lb BMI 43.3 BP 105/56 L Blood Pressure Location Lt brachial Position Sitting Pulse 61 Intake Visit Reasons: gerd Intake Note: Patient new consult for GERD. Patient cc: GERD and right abdominal pain. Electronic Technician Required: Yes Accompanied by: Self / Same As Patient Allergies oxycodone [From PERCOCET] Allergy (Intermediate, Verified 05/13/23 09:42) HALLUCINATIONS Medication List - Last Reconciled 05/13/23 by Holley Moseley PA-C bupropion HCl 150 mg PO DAILY cholecalciferol (vitamin D3) (Vitamin D3) 50 mcg PO DAILY cyanocobalamin (vitamin B-12) (Vitamin B-12) 1,000 mcg PO DAILY famotidine 20 mg PO DAILY hydroxyzine HCl 50 mg PO Q6-8H ibuprofen 800 mg PO Q8H PRN 30 days magnesium 400 mg PO DAILY omeprazole magnesium 20 mg PO DAILY [potassium ] sertraline 25 mg PO DAILY HPI HPI Comments History of Present Illness Details A 53 y/o female referred with gerd- was seen in 2019- by Ms. Thomas-EGD and colonoscopy- repeat colonoscopy 5 years- She has normal bowel pattern-with no issues She presents with acid reflux- RQ-for the past few days-worse after eating-her had bacteria-- about 1 month ago he was treated with antibiotics gastric by pass- 15 yrs ago lap band about 10 years She follows with Dr. Krueger-last seen 1-2 months ago- she began new med for wt loss-Naltrexone She has no nausea, vomiting, hematemesis, hematochezia fever chills PFSH Medical History (Updated 05/13/23 @ 10:50 by Holley Moseley PA-C) Left inguinal hernia (09/06/22) Tubular adenoma Gastritis HTN (hypertension) Morbid obesity Anemia IBS (irritable bowel syndrome) Surgical History Umbilical hernia S/P partial hysterectomy H/O right knee surgery Hx of section Tubal ligation status Hx of laparoscopic gastric banding Family History Father Prostate cancer Maternal Aunt Breast cancer Brother Prostate cancer Social History Household Members: None Housing: Apartment Alcohol intake: never Patient Tobacco Use Status: Never used Tobacco service: No Current occupational status: disabled Current occupation: rt handed Female Reproductive History Menstrual Age of Menarche: 11 Review of Systems Const All systems reviewed & are unremarkable except as noted in HPI and below Card Denies chest pain and Denies dyspnea Resp Denies dyspnea Physical Exam Vital Signs: Last Vital Signs Pulse 61 05/13/23 09:50 BP 105/56 L 05/13/23 09:50 BMI result Body Mass Index 43.3 Const General: cooperative, healthy appearing and comfortable Nutritional Appearance: overweight Limitations: language barrier Eyes Sclerae: sclerae normal Resp Effort & Inspection: normal respiratory effort and able to speak in complete sentences Auscultation: clear to auscultation bilaterally, no rales, no rhonchi and no wheezes Cardio Rate: regular rate Rhythm: regular rhythm Heart sounds: S1 normal heart sound present and S2 normal heart sound present GI Palpation (GI): Soft to palpation, Tenderness to palpation present (GI) (Mild,) in the RLQ and no guarding Auscultation: normal bowel sounds Skin General skin exam: no rashes or lesions noted Extrem General: Yes full ROM Psych Appearance: grossly normal and well kempt Mental Status: mental status grossly normal Speech and movement: Normal speech and movement present Affect: normal affect Attitude: cooperative Thought process: Normal thought process present Thought content: Normal thought content present Insight: Good insight present (Psych) Judgement: Good judgement present (Psych) Assessment & Plan Assessment & Plan (1) Acid reflux: Comment: Symptoms vague Will get H pylori stool antigen- Code(s): K21.9 - Gastro-esophageal reflux disease without esophagitis Plan: Discontinue PPI for 2wks Carafate in the interim Submit stool sample to weeks for H pylori Cold 48 hours after submission for results, if positive will treat Reflux precautions (2) Abdominal pain: Comment: Right quadrant, vague Mild tenderness exam Code(s): R10.9 - Unspecified abdominal pain Plan: CBC, CMP Plan HP if pos tx CBC. cmp Carafate interim She will call for HP result Orders: Orders H pylori Ag Stool Today A04.8 - Other specified bacterial intestinal infections Complete Blood Count Auto Diff Today R10.9 - Unspecified abdominal pain Comprehensive Met. Panel Today K21.9 - Gastro-esophageal reflux disease without esophagitis, R10.9 - Unspecified abdominal pain Medications: New sucralfate 1 g PO BID 4 weeks 56 tabs 2RF Patient Instructions: Discontinue PPI for 2wks Carafate in the interim Submit stool sample to weeks for H pylori Cold 48 hours after submission for results, if positive will treat Reflux precautions reviewed Encouraged to call with questions or concerns Coding Level of Care Code New Pt Level 3 (20063) Diagnoses Acid reflux K21.9 Abdominal pain R10.9 Time Spent (min) 30
[2023-05-13 09:50] VITALS: BP 105/56; PULSE 61; BMI 43.3
== END 2023-05-13 10:50 | disposition home or self-care (01) ==
PROVIDERS: PCP Student in an Organized Health Care Education/Training Program; Visit Provider Physician Assistant
DX: K21.9 Gastro-esophageal reflux disease without esophagitis (principal)
CPT/HCPCS: 99203

== ENCOUNTER 2023-06-11 11:54 | Outpatient (REF) | payer MEDICAID, SELFPAY | END 2023-06-11 11:55 | disposition home or self-care (01) | LOC: HO.LNP 11:54 | PROVIDERS: Visit Provider Physician Assistant | DX: A04.8 Other specified bacterial intestinal infections (principal) | CPT/HCPCS: 87338 ==

== ENCOUNTER 2023-06-19 09:10 | Outpatient (REF) | payer MEDICAID, SELFPAY ==
--- NOTE | ~2023-06-19 | US_ITS ---
EXAMINATION: US ABDOMEN LIMITED CLINICAL INFORMATION: Right lower abdominal mass sensation, rule out incisional hernia. COMPARISON: None available. TECHNIQUE: Real-time imaging of the right lower quadrant abdominoplasty scar and right upper quadrant laparoscopic cholecystectomy scars. FINDINGS: No discrete hernia seen at the right lower quadrant abdominal plasty scar or right upper quadrant laparoscopic cholecystectomy scars. Laparoscopic band port noted. US/US abdomen limited IMPRESSION: No visible hernia.
== END 2023-06-19 09:11 | disposition home or self-care (01) ==
LOC: HO.US 09:10
PROVIDERS: PCP Student in an Organized Health Care Education/Training Program; Visit Provider Student in an Organized Health Care Education/Training Program
DX: R19.00 Intra-abdominal and pelvic swelling, mass and lump, unspecified site (principal)
CPT/HCPCS: 76705

== ENCOUNTER 2023-09-01 10:02 | Outpatient (AMB) | payer MEDICAID, SELFPAY ==
--- NOTE | 2023-09-01 10:04 | MHC.OFFVIS ---
Intake Vital Signs 09/01/23 10:06 Height 5 ft 1.5 in Weight 224 lb BMI 41.6 BP 129/66 Blood Pressure Location Lt brachial Position Sitting Pulse 65 Intake Visit Reasons: FOLLOW UP Intake Note: Patient follow up for abdominal pain and stool results. Patient denies any GI issues. [employer] Required: No Accompanied by: Self / Same As Patient Allergies oxycodone [From PERCOCET] Allergy (Intermediate, Verified 09/01/23 10:18) HALLUCINATIONS HPI HPI Comments History of Present Illness Details A 53 y/o female f/u from May- she is doing very well- She is taking pepcid as well as omeprazole prn-she does get break through- she thinks omeprazole is better for management- Reviewed EGD/ colo- 08/2019- Repeat colo 2024 Appetite is good Bowels are normal No N/V/D/ abdominal pain- or change in bowels PFSH Medical History (Updated 05/13/23 @ 10:50 by Holley Moseley PA-C) Left inguinal hernia (09/06/22) Tubular adenoma Gastritis HTN (hypertension) Morbid obesity Anemia IBS (irritable bowel syndrome) Surgical History Umbilical hernia S/P partial hysterectomy H/O right knee surgery Hx of section Tubal ligation status Hx of laparoscopic gastric banding Family History Father Prostate cancer Maternal Aunt Breast cancer Brother Prostate cancer Social History Household Members: None Housing: Apartment Alcohol intake: never Patient Tobacco Use Status: Never used Tobacco service: No Current occupational status: disabled Current occupation: rt handed Female Reproductive History Menstrual Age of Menarche: 11 Review of Systems Const All systems reviewed & are unremarkable except as noted in HPI and below Card Denies chest pain GI Denies abdominal pain, Denies change in bowel habits, Reports heartburn, Denies nausea and Denies vomiting Psych Reports anxiety Physical Exam Vital Signs: Last Vital Signs Pulse 65 09/01/23 10:06 BP 129/66 09/01/23 10:06 BMI result Body Mass Index 41.6 Const General: cooperative, healthy appearing, comfortable and no acute distress Orientation/consciousness: patient oriented x3 Limitations: no limitations Neuro General: patient oriented x3 Psych Appearance: grossly normal and well kempt Mental Status: mental status grossly normal Speech and movement: Normal speech and movement present and Clear speech present Affect: normal affect Attitude: cooperative Thought content: Normal thought content present Insight: Good insight present (Psych) Judgement: Good judgement present (Psych) Assessment & Plan Assessment & Plan (1) Chronic superficial gastritis with hemorrhage: Code(s): K29.31 - Chronic superficial gastritis with bleeding Plan: omeprazole 20 QD (2) Esophageal ulcer: Code(s): K22.10 - Ulcer of esophagus without bleeding Plan continue omeprazole 20 mg reflux precautions Repeat colonoscopy 2024-adenoma Medications: New omeprazole 20 mg PO DAILY 30 caps 6RF 30 days Patient Instructions: continue omeprazole 20 mg reflux precautions- reviewed- Repeat colonoscopy 2024-adenoma- see back in 6 months for progress and Coding Level of Care Code Est Pt Level 3 (80308) Diagnoses Chronic superficial gastritis with hemorrhage K29.31 Esophageal ulcer K22.10 Time Spent (min) 25
[2023-09-01 10:06] VITALS: BP 129/66; PULSE 65; BMI 41.6
== END 2023-09-01 10:41 | disposition home or self-care (01) ==
PROVIDERS: PCP Student in an Organized Health Care Education/Training Program; Visit Provider Physician Assistant
DX: K29.31 Chronic superficial gastritis with bleeding (principal); K22.10 Ulcer of esophagus without bleeding
CPT/HCPCS: 99213

== ENCOUNTER → 2023-09-01 10:02 | Outpatient (BNVA) | payer MEDICAID, SELFPAY | PROVIDERS: PCP Student in an Organized Health Care Education/Training Program; Visit Provider Physician Assistant | DX: K22.10 Ulcer of esophagus without bleeding (principal); K29.31 Chronic superficial gastritis with bleeding | CPT/HCPCS: 99212 ==

== ENCOUNTER 2023-10-06 10:00 | Outpatient (RCR) | payer MEDICAID, SELFPAY ==
--- NOTE | 2023-08-22 14:48 | MHC.PT.EP ---
[facility] [place] [facility] [place] [facility] [address] Eddie Westfall [address] [phone] F: [phone] F: [phone] F: [phone] F: [phone] Physical Therapy Plan of Care Date of Evaluation: 08/21/23 Date of Surgery: n/a Diagnosis: Primary osteoarthritis, left shoulder other shoulder lesions, left shoulder Assessment: Pt is a pleasant 53yo F who presents to PT with left shoulder pain. Pt presents to PT with current impairments in pain, decreased ROM, decreased strength, soft tissue restrictions, and impaired posture. She is limited functionally by overhead ADLs, reaching, lifting, and sleeping on left side. She is an excellent candidate for skilled PT in order to address current impairments in order to facilitate return to pain-free PLOF. She is recommended to be seen 2x/week for 4 weeks and will be reassessed at that time Frequency and Duration: The patient will be seen 2x/week for 4 weeks Short Term Goals: Pt will be I with HEP tp promote self management of symptoms Pt will improve left shoulder flexion by at least 10 degrees Usp Goals: Pt will achieve full, pain-free ROM all planes of left shoulder to assist with lifting and reaching Pt will perform overhead ADLs with proper mechanics and minimal to no pain or discomfort Pt will demonstrate improvements in function as evidenced by statistically significant improvements in SPADI outcome measure Treatment Plan: Modalities to reduce pain, spasms and effusion. Manual therapy to restore motion and function. Therapeutic exercise to improve strength and flexibility. Neuromuscular re-education for posture and balance. Therapeutic activities to return to functional activities of daily living. Electronically signed by: Katlyn Jiménez, PT, DPT Please sign and return to therapist. Thank you for your referral.
--- NOTE | 2023-10-20 14:24 | MHC.PT.DC ---
[facility] [place] [facility] [place] [facility] [place] [facility] [address] Eddie Westfall [address] [phone] F: [phone] F: [phone] F: [phone] F: [phone] Physical Therapy Discharge Report Diagnosis: Primary osteoarthritis, left shoulder other shoulder lesions, left shoulder Date of Surgery: n/a Date of Evaluation: 08/21/23 Date of Discharge: 10/20/23 Treatments to Date: 8 Cancellations to Date: No Shows to Date: 4 Discharge Status: Visit Non-compliance Discharge Summary: Pt was seen for PT from 08/21/23-10/06/23. Her last attended appointment was 10/06/23. She has had multiple no-show appointments since SOC. She is being D/C from skilled PT per [facility] attendance policy and visit non-compliance. Pt current level of function unknown at this time Electronically signed by: Katlyn Jiménez, PT, DPT Please sign and return to therapist. Thank you for your referral.
== END 2023-10-20 14:24 | disposition home or self-care (01) ==
LOC: HO.PT 10:00
PROVIDERS: PCP Student in an Organized Health Care Education/Training Program; Visit Provider Physician Assistant
DX: M19.012 Primary osteoarthritis, left shoulder (principal); M75.82 Other shoulder lesions, left shoulder
CPT/HCPCS: 97110; 97140; 97162

== ENCOUNTER 2023-11-05 11:00 | Outpatient (REF) | payer MEDICAID, SELFPAY ==
--- NOTE | ~2023-11-05 | MM_ITS ---
EXAMINATION: MM DIAGNOSTIC DIGITAL BREAST TOMOSYNTHESIS, RIGHT CLINICAL INFORMATION: 6 month follow-up for calcifications right breast 11:30 o'clock position, anterior one third. COMPARISON: Mammography: 04/22/2023 (BI-RADS 3), 03/25/2023 (BI-RADS 0), and multiple more remote studies. TECHNIQUE: Digital right breast tomosynthesis is performed in both the craniocaudal and mediolateral oblique views along with computer-aided detection (CAD). Synthesized 2D images are generated from the tomosynthesis. In addition, 2-D spot magnification right ML and CC views were also obtained of the right breast. FINDINGS: There are scattered areas of fibroglandular density (ACR BI-RADS breast composition Category b). In the right breast in the 11:30 o'clock axis, anterior one third, there are entirely unchanged benign-appearing grouped calcifications with grossly coarse morphology. No pleomorphism, linear or branching forms. These remain probably benign. Six-month follow-up recommended. No additional suspicious abnormalities right breast. MM/MM tomosynthesis diagnostic RT IMPRESSION: Stable probably benign right breast calcifications for which six-month follow-up recommended to include standard magnification views, when the patient is due for bilateral screening. ASSESSMENT: BI-RADS BI-RADS 3 - Probably benign finding(s) - 6 month follow-up suggested RECOMMENDATION: 6 Month F/U Results were provided to the patient at time of visit by the technologist. This patient's information was entered into a reminder system with a target due date for their next mammogram.
== END 2023-11-05 11:01 | disposition home or self-care (01) ==
LOC: HO.MAMMO 11:00
PROVIDERS: PCP Student in an Organized Health Care Education/Training Program; Visit Provider Student in an Organized Health Care Education/Training Program
DX: R92.1 Mammographic calcification found on diagnostic imaging of breast (principal)
CPT/HCPCS: 77061; 77065

== ENCOUNTER → 2023-11-05 11:00 | Outpatient (BNV) | payer MEDICAID, SELFPAY | PROVIDERS: PCP Student in an Organized Health Care Education/Training Program; Visit Provider Radiology Diagnostic Radiology | DX: R92.1 Mammographic calcification found on diagnostic imaging of breast (principal) | CPT/HCPCS: 77061; 77065 ==

== ENCOUNTER 2023-12-01 10:05 | Outpatient (AMB) | payer MEDICAID, SELFPAY ==
[2023-12-01 10:10] VITALS: BMI 40.9
--- NOTE | 2023-12-01 10:10 | A.OFFVIS_ITS ---
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 Delivery Room Supervisor Required: No Delivery Room Supervisor Services: Delivery Room Supervisor Present Information Interpreted: clinical only Park Manager: Park Manager Present Allergies oxycodone [From PERCOCET] Allergy (Intermediate, Verified 12/01/23 10:14) HALLUCINATIONS Medication List - Last Reconciled 12/01/23 by Marilia Julien CNM bupropion HCl 150 mg PO DAILY cholecalciferol (vitamin D3) (Vitamin D3) 50 mcg PO DAILY cyanocobalamin (vitamin B-12) (Vitamin B-12) 1,000 mcg PO DAILY famotidine 20 mg PO DAILY hydroxyzine HCl 50 mg PO Q6-8H ibuprofen 800 mg PO Q8H PRN 30 days magnesium 400 mg PO DAILY omeprazole 20 mg PO DAILY 30 days omeprazole magnesium 20 mg PO DAILY phentermine 15 mg PO DAILY [potassium ] sertraline 25 mg PO DAILY sucralfate 1 g PO BID 4 weeks topiramate XR 50 mg PO DAILY Post menopausal: Yes HPI HPI WINDSHIELD REPAIR TECHNICIAN annual exam: Details: Patient is here for animal killer annual exam she has no animal killer concerns this year at all she declines testing for STIs or infection. She had hysterectomy and while re removed a few years ago for benign reasons as far she remembers. She had gastric bypass many years ago but has regained some weight and she saw her surgeon at [facility] recently and was given a medication help with weight loss and says it is helping. She is also receiving care psychiatrically and says her psychiatrist was concerned about side effects but she has not had any negative ones. She also has a bad knee but is waiting for an evaluation to check that out she says she was told she is too young for surgery for that she is working on weight loss 1st as well. She recently had her mammogram and she says it was fine and she is up-to-date with her primary care Health Center. [facility] Medical History Left inguinal hernia (09/06/22) Tubular adenoma Gastritis HTN (hypertension) Morbid obesity Anemia IBS (irritable bowel syndrome) Surgical History (Updated 12/01/23 @ 11:15 by Marilia Julien CNM) Umbilical hernia S/P partial hysterectomy H/O right knee surgery Hx of section Tubal ligation status Hx of laparoscopic gastric banding Family History Father Prostate cancer Maternal Aunt Breast cancer Brother Prostate cancer Social History Household Members: None Housing: Apartment Alcohol intake: never Patient Tobacco Use Status: Never used Tobacco service: No Current occupational status: disabled Current occupation: rt handed Female Reproductive History Menstrual Age of Menarche: 11 control method: permanent sterilization Total pregnancies: 4 Full term: 3 Date of last pap smear: 10/31/22 (neg.) History of abnormal pap smear: Yes (unsure date ) Date of Mammogram: 11/05/23 (3.6m probably benign finding) Physical Exam Vital Signs: Last Vital Signs BP 126/72 12/01/23 10:10 BMI result Body Mass Index 36.5 Const General: healthy appearing, comfortable, no acute distress, well developed and alert Nutritional Appearance: average body habitus and obese Orientation/consciousness: patient oriented x3 Limitations: no limitations HEENT Head: Yes normocephalic Neck Neck: Yes normal visual inspection Chest Other: Breasts are pendulous. Chest palpation & inspection: normal inspection of the chest Breast/axilla inspection: normal inspection of the breasts and normal inspection of the axillae Breast/axilla palpation: normal palpation of the breasts and normal palpation of the axillae Resp Effort & Inspection: normal respiratory effort GI Inspection: Yes normal to inspection, No Abdominal wall edema and No distended Palpation (GI): Soft to palpation and nontender Other: External exam within normal limits normal appearing white mucus vagina pink in moist vaginal very well healed nontender uterus absent adnexa non palpable but n ontender very good tone with Kegel. General: Yes bladder normal to palpation External Female Exam: normal external appearance and normal appearance of the urethra Speculum Exam - Vagina: normal appearance of the vagina, normal palpation and normal vaginal discharge Speculum Exam - Cervix: normal appearance of the cervix, normal palpation and nontender Bimanual exam- vagina & uterus: normal bimanual exam, normal palpation, uterine size normal, bladder normal to palpation, consistency normal, normal palpation, uterine mobility normal, uterine shape normal, No Cervical tenderness present, non-tender and no cervical motion tenderness Bimanual Exam- Adnexa, other: normal adnexae, no masses, normal and No adnexal tenderness Neuro General: patient oriented x3 Results Reviewed Results Reviewed: Name: Carla Grant Age/Sex: 52/F Attending: Marilia Julien CNM : 1970 Submitted by: Marilia Julien CNM Copies to: Tigist Bartholomew Lina [facility] MR #: [id number] Status: DEP REF Collected: 10/30/22 Location: [facility] Received: 10/31/22 Interpretation Satisfactory for evaluation. Negative for intraepithelial lesion or malignancy. HPV mRNA E6/E7: NOT DETECTED This assay detects E6/E7 viral messenger RNA (mRNA) from 14 high-risk HPV types (16, 18, 31, 33, 35, 39, 45, 51, 52, 56, 58, 59, 66, 68) HPV testing performed by [email or web address], [place], [place]. See reference laboratory portion of the EMR for entire report. Clinical Information LMP: Unknown date Previous PAP test: 07/15/18, Unknown findings Material Received ThinPrep-Vaginal Copies To Marilia Julien [address] Leonardo Milligan [place], [place] [phone] Tigist Bartholomew Lina [facility] [address] [place], [place] [phone] Electronically Signed By: Sruthi Hartman 11/18/22 1318 The Pap Test is a screening procedure with the inherent possibility of both false negative and false positive results. Results should be interpreted in the context of historic and current clinical findings. Reliability of the Pap Test is enhanced by performing the test on a regular repetitive basis. Patient: Carla Grant Age/Sex: 52/F MR#: [id number] Page 1 of 1 Assessment & Plan Assessment & Plan (1) Morbid obesity: Code(s): E66.01 - Morbid (severe) obesity due to excess calories Category: Medical (2) Cervical cancer screening: Comment: 10/30/2022 Pap is negative with negative HPV. Code(s): Z12.4 - Encounter for screening for malignant neoplasm of cervix Category: Medical (3) Well woman exam with routine gynecological exam: Code(s): Z01.419 - Encounter for gynecological examination (general) (routine) without abnormal findings Category: Medical Plan -----Discussed in this visit the following: healthy balanced diet, regular and consistent exercise, getting recommended health screens, doing the best she can for her particular health concerns, kegel exercises, pap smear screening and followup recommendations, mammography screening and SBE, normal changes in cycles in her life stage--- . She had no need for STI testing and declined it. Pap was negative last year and she denies any history of an abnormal Pap her uterus and 1 ovary were removed for what she describes as benign reasons at [facility]. She is working again on weight loss with the addition medication per her surgeon and is under care of her various providers and feels she is doing well she is trying to eat better and more when she can. We will see her in 1 year discussed is hopeful if she loses weight the her pendulous breasts may become less heavy for her Coding Level of Care Code Est Pt Prev Care 40-64y(36731) Diagnoses Morbid obesity E66.01 Cervical cancer screening Z12.4 Well woman exam with routine gynecological exam Z01.419
== END 2023-12-01 11:16 | disposition home or self-care (01) ==
LOC: HO.HWSM 10:05
PROVIDERS: PCP Student in an Organized Health Care Education/Training Program; Visit Provider Advanced Practice Midwife
DX: E66.01 Morbid (severe) obesity due to excess calories (principal); Z12.4 Encounter for screening for malignant neoplasm of cervix; Z01.419 Encounter for gynecological examination (general) (routine) without abnormal findings
CPT/HCPCS: 99396

== ENCOUNTER → 2023-12-01 10:05 | Outpatient (BNVA) | payer MEDICAID, SELFPAY | PROVIDERS: PCP Student in an Organized Health Care Education/Training Program; Visit Provider Advanced Practice Midwife | DX: Z01.419 Encounter for gynecological examination (general) (routine) without abnormal findings (principal); E66.01 Morbid (severe) obesity due to excess calories | CPT/HCPCS: 99396 ==

== ENCOUNTER 2024-03-25 09:26 | Outpatient (REF) | payer MEDICAID, SELFPAY ==
[2024-03-25 11:12] LABS: Hemoglobin 13.2 g/dl (12.0-16.0); Mean Corpuscular HGB Conc 32.2 g/dl (31.0-35.0); Mean Corpuscular Hemoglobin 28.6 pg (27.0-33.0); Mean Corpuscular Volume 88.9 fL (80.0-98.0); Mean Platelet Volume 10.4 fL (9.4-12.3); Platelet Count 364 X10*3/uL (160-400); Red Blood Count 4.61 X10*6/uL (4.20-5.50); Red Cell Distribution Width 14.4 % (11.0-16.0); White Blood Count 6.1 X10*3/uL (4.8-10.8)
[2024-03-25 11:37] LABS: Estimated Average Glucose 105 mg/dL; Hemoglobin A1C 101.4888 umol/L; Hemoglobin A1c % 5.3 % (<6.0); Total Hemoglobin (HGBA1C) 2950.2929 umol/L
[2024-03-25 11:38] LABS: Alanine Aminotransferase 20 U/L (0-31); Alkaline Phosphatase 95 U/L (39-117); Anion Gap 11 (12-20); Aspartate Amino Transferase 23 U/L (5-31); Bilirubin Total 0.7 mg/dL (0.0-1.0); Blood Urea Nitrogen 9 mg/dL (9-16); Calcium 9.6 mg/dL (8.4-10.2); Carbon Dioxide 29 mmol/L (22-29); Chloride 105 mmol/L (96-108); Cholesterol 188 mg/dL (<200); Estimated Glomerular Filt Rate > 60; Glucose Random 90 mg/dL (60-115); HDL Cholesterol 61 mg/dL (>40); LDL Cholesterol Calculated 111 mg/dL (<100); Potassium 4.1 mmol/L (3.3-5.1); Sodium 141 mmol/L (135-145); Triglycerides 81 mg/dL (<150)
[2024-03-25 11:43] LABS: TSH reflex Free T4 1.67 uIU/mL (0.32-4.0); Vitamin D 25-OH Total 29.5 ng/mL (>30)
[2024-03-25 11:50] LABS: Creatinine Urine 152.55 mg/dL; Microalbumin Urine < 5.0 mg/L
[2024-03-25 11:51] LABS: HBS Num1 1.46 mIU/mL (0-7.99); HBc Num1 0.22 S/CO (0.00-0.79); HBsAGNum1 0.28 S/CO (0.00-0.99); HIV AB/AG Nonreactive (Nonreactive); HIV Num 1 0.04 S/CO (0.00-0.99); Hepatitis B Core Antibody Nonreactive (Nonreactive); Hepatitis B Surface Antigen Negative (Negative); ~HepC Num1 0.18 S/CO (0.00-0.79); ~Hepatitis B Surface Antibody NONREACTIVE (Nonreactive); ~Hepatitis C Antibody Nonreactive (Nonreactive)
[2024-03-25 11:54] LABS: Syphilis Screen Nonreactive (Nonreactive)
[2024-03-25 14:45] LABS: CT PCR NOT DETECTED (Not Detect.); NG PCR NOT DETECTED (Not Detect.)
== END 2024-03-25 09:27 | disposition home or self-care (01) ==
LOC: HO.HHCL 09:26
PROVIDERS: Visit Provider Student in an Organized Health Care Education/Training Program
DX: Z00.00 Encounter for general adult medical examination without abnormal findings (principal)
CPT/HCPCS: 36415; 80053; 80061; 82306; 82570; 83036; 84443; 85027; 86704; 86706; 86780; 86803; 87340; 87389; 87491; 87591

== ENCOUNTER 2024-04-27 09:34 | Outpatient (AMB) | payer MEDICAID, SELFPAY ==
--- NOTE | 2024-04-27 09:37 | MHC.OFFVIS ---
Vital Signs 04/27/24 09:38 Height 5 ft 1.5 in Weight 205 lb 0.478 oz BMI 38.1 BP 112/56 L Blood Pressure Location Lt radial Position Sitting Pulse 67 Intake Visit Reasons: [place] pt/Chronic GERD with hemorrhoids Intake Note: Carla presents in the office as a [facility] patient for Chronic GERD with Hemorrhoids. CC: She states that she is here today because of acid reflux. Pains in the stomach - not everyday more discomfort. No irregular bowel movements. She states that she does not have any blood in the bowel movements either. Aircraft Communicator Required: No Aircraft Communicator Name: Brody [id number] Allergies oxycodone [From PERCOCET] Allergy (Intermediate, Verified 04/27/24 09:40) HALLUCINATIONS HPI HPI [place] pt/Chronic GERD with hemorrhoids: Details: 54 y/o female here for f/u --hx of ian en Y with lap band RECAP: She has heartburn- taking omeprazole famotidine prn Reviewed EGD/ colo- 08/2019- polyps, diverticulosis, esophagitis Repeat colo due 2024 INTERIM: she feels well no major sx she has v mild epigastric pain heartburn is controlled no n/v\ no diarrhea or constipation EXAM: GENERAL: The patient is well developed and nontoxic. VITAL SIGNS:see workflow HEENT: Nonicteric sclerae, PERRLA, EOMI. Oropharynx clear. Moist mucous membranes. Conjunctivae appear well perfused. No thyroid mass. CHEST: Chest wall is nontender. HEART: Regular rate and rhythm without murmurs. LUNGS: Clear to auscultation bilaterally. ABDOMEN: Soft, positive bowel sounds, nontender, no organomegaly.no flank tenderness SKIN: No rash, no excessive bruising, petechiae, or purpura. NEUROLOGIC: Cranial nerves II-XII intact without motor/sensory deficit. Psych: normal affect A?P; 1/ GERD 2/2 lap band, hx of ian en Y\ PLAN: 1/ cont with PP< advised to chew food thoroughly, small meals and portions 2/ multivitamin and vit D supplement, periodic labs tracy b12,ferritin, folate, mag, vit D 3/ colonoscopy due to hx of polyps PFSH Medical History Left inguinal hernia (09/06/22) Tubular adenoma Gastritis HTN (hypertension) Morbid obesity Anemia IBS (irritable bowel syndrome) Surgical History Umbilical hernia S/P partial hysterectomy H/O right knee surgery Hx of section Tubal ligation status Hx of laparoscopic gastric banding Family History Father Prostate cancer Maternal Aunt Breast cancer Brother Prostate cancer Social History Household Members: None Housing: Apartment Alcohol intake: never Patient Tobacco Use Status: Never used Tobacco service: No Current occupational status: disabled Current occupation: rt handed Female Reproductive History Menstrual Age of Menarche: 11 Physical Exam Vital Signs: Last Vital Signs Pulse 67 04/27/24 09:38 BP 112/56 L 04/27/24 09:38 BMI result Body Mass Index 38.1 Assessment & Plan Assessment & Plan (1) Acid reflux: Code(s): K21.9 - Gastro-esophageal reflux disease without esophagitis Category: Medical Plan: see above Medications: New sodium,potassium,mag sulfates 17.5-3.13-1.6 gram (Suprep Bowel Prep Kit) DILUTE; drink 1/2 at 6-8 pm and half at 11 PM- 1AM 354 mL 0RF Refilled omeprazole 20 mg PO DAILY 30 days 30 caps 6RF Coding Level of Care Code Est Pt Level 3 (83893) Diagnoses Acid reflux K21.9
[2024-04-27 09:38] VITALS: BP 112/56; PULSE 67; BMI 38.1
== END 2024-04-27 10:33 | disposition home or self-care (01) ==
PROVIDERS: PCP Student in an Organized Health Care Education/Training Program; Visit Provider Internal Medicine Gastroenterology
DX: K21.9 Gastro-esophageal reflux disease without esophagitis (principal)
CPT/HCPCS: 99213

== ENCOUNTER → 2024-04-27 09:34 | Outpatient (BNVA) | payer MEDICAID, SELFPAY | PROVIDERS: PCP Student in an Organized Health Care Education/Training Program; Visit Provider Internal Medicine Gastroenterology | DX: K21.9 Gastro-esophageal reflux disease without esophagitis (principal); K64.9 Unspecified hemorrhoids | CPT/HCPCS: 99212 ==

== ENCOUNTER 2024-08-18 10:06 | Outpatient (AMB) | payer MEDICAID, SELFPAY ==
[2024-08-18 10:10] VITALS: BP 128/68; PULSE 73; BMI 35.4
--- NOTE | 2024-08-18 10:10 | A.OFFVIS_ITS ---
Vital Signs 08/18/24 10:10 Height 5 ft 1 in Weight 187 lb 6.287 oz BMI 35.4 BP 128/68 Blood Pressure Location Lt brachial Position Sitting Pulse 73 Pulse Source Monitor Intake Visit Reasons: r/s 05/25 p.antione/abn ekg/palpitations/presyncope Senior Maintenance Mechanic Required: Yes Senior Maintenance Mechanic Services: Senior Maintenance Mechanic Offered & Declined Allergies oxycodone [From PERCOCET] Allergy (Intermediate, Verified 04/27/24 09:40) HALLUCINATIONS Medication List - Last Reconciled 08/18/24 by Anderson Zamora MD amlodipine 2.5 mg PO QAM bupropion HCl XL 300 mg PO DAILY cyanocobalamin (vitamin B-12) (Vitamin B-12) 1,000 mcg PO DAILY famotidine 20 mg PO DAILY furosemide 20 mg PO QAM PRN hydroxyzine HCl 25 - 50 mg PO Q6H PRN ketotifen fumarate 0.025%(0.035%) 1 drp ophthalmic (eye) Q12H omeprazole 20 mg PO DAILY 30 days sertraline 25 mg PO DAILY sodium,potassium,mag sulfates 17.5-3.13-1.6 gram (Suprep Bowel Prep Kit) DILUTE; drink 1/2 at 6-8 pm and half at 11 PM- 1AM sucralfate 1 g PO BID 4 weeks tirzepatide (weight loss) (Zepbound) 2.5 mg subcut QWEEK HPI Comments Details: Carla was referred here for symptoms of palpitation as well as lightheadedness. Patient was a 53-year-old female with prior history of obesity as well as leg edema who for the 1 year or so is having symptoms of near- syncope. She says while she is doing something upright or when she is sitting for long period time she will feel like Jozef vision and feel like she would pass out. Symptoms of last for few seconds and then dissipate. She has not actually had a fainting episode. She has been taking water pill regularly now for lower extremity edema. She says she does not take the water pill she gains fluid and also gains 3-4 lb. She is trying to lose weight and is using an injection to do the same. She has prior history of morbid obesity improved with current weight lost therapy. She was no orthopnea, PND, abdominal distension. She denies any exertional chest pain. She also gets intermittent symptoms of palpitation which are infrequent happening about once every month to 2 months where she feels fluttering in his chest. She is bothered by the symptoms. She has never had any cardiac test in the past. She has never had any cardiac issues in the past or any events in the past. [facility] Medical History Left inguinal hernia (09/06/22) Tubular adenoma Gastritis HTN (hypertension) Morbid obesity Anemia IBS (irritable bowel syndrome) Surgical History Umbilical hernia S/P partial hysterectomy H/O right knee surgery Hx of section Tubal ligation status Hx of laparoscopic gastric banding Family History Father Prostate cancer Maternal Aunt Breast cancer Brother Prostate cancer Social History Household Members: None Housing: Apartment Alcohol intake: never Patient Tobacco Use Status: Never used Tobacco service: No Current occupational status: disabled Current occupation: rt handed Female Reproductive History Menstrual Age of Menarche: 11 Review of Systems Const Denies weakness ENT Denies dizziness Card Denies chest pain, Denies chest pain with activity, Denies syncope, Denies rapid heart rate, Denies pedal edema, Denies edema, Denies leg edema, Denies lightheadedness, Reports palpitations, Denies dyspnea, Denies dyspnea on exertion and Denies orthopnea Resp Denies cough, Denies dyspnea and Denies dyspnea on exertion GI Denies hematochezia and Denies change in stool character Musc Denies abnormal gait, Denies muscle cramps, Denies muscle weakness, Denies numbness, Denies radiating pain into limb and Denies tingling Neuro Denies abnormal gait, Denies dizziness, Denies syncope, Denies numbness, Denies tingling and Denies weakness Endo Reports palpitations Physical Exam Vital Signs: Last Vital Signs Pulse 73 08/18/24 10:10 BP 128/68 08/18/24 10:10 BMI result Body Mass Index 35.4 Const General: cooperative, comfortable, no acute distress, alert and awake Nutritional Appearance: obese Orientation/consciousness: patient oriented x3 Limitations: no limitations HEENT Head: Yes normocephalic and Yes atraumatic Neck Neck: Yes trachea midline, Yes supple and Yes no JVD Resp Effort & Inspection: normal respiratory effort Auscultation: clear to auscultation bilaterally Cardio Jugular venous distension: no JVD Palpation: normal PMI Rate: regular rate Rhythm: regular rhythm Heart sounds: S1 normal heart sound present, S2 normal heart sound present, no click, no gallops, no murmurs and no rubs GI Auscultation: normal bowel sounds Skin General skin exam: no rashes or lesions noted Neuro General: patient oriented x3 and no focal motor deficits Extrem General: Yes no clubbing, cyanosis or edema Psych Appearance: grossly normal Office Procedures EKG Details: EKG shows normal sinus rhythm with nonspecific ST changes without any QT prolongation 90676-[id number], Complete Assessment & Plan Assessment & Plan (1) Palpitations: Code(s): R00.2 - Palpitations Plan: Patient was symptoms of palpitation which are very infrequent and likely represent extra systoles. I would perform a event monitor to assess for these arrhythmias. Although if they are infrequent unlikely to benefit from any treatment efforts. Will also obtain an echocardiogram to assess for cardiac structure and function especially given her history of leg edema and obesity to rule out any cardiomyopathy process. This was discussed with her. Avoidance of stimulants was discussed. Stress mitigation strategies were discussed. (2) Near syncope: Code(s): R55 - Syncope and collapse Plan: Her more concerning symptom is near-syncope which happens while she was standing or sometimes sitting including with driving. She has never had a full syncopal episode. However this more likely suggestive of maybe orthostatic hypotension. She drinks about 32 oz of water a day and I have advised her to increase her fluid intake. Will suggest a head-up tilt-table test to further assess for the symptoms. Follow up in the clinic after above-mentioned test. Thank you for allowing me to partake in his care Coding Level of Care Code New Pt Level 4 (45203) Complex EM visit Add On G2211 Diagnoses Palpitations R00.2 Near syncope R55 CPT Codes EKG - CPT: 55129-[id number], Complete ([id number])
--- OUTSIDE RECORDS SUMMARY | 2024-08-18 11:42 | XMS_ITS | Encounter Summary ---
Author Organization [employer] Address [address] [facility] [place] [address] Care Team Providers Care Export Coordinator Name Role Phone Lniette [place] MD Primary Care Pro vider Justin Rojo Unavailable Unavailable Reason for Visit * Reason Comments Med Change Request Encounter Details Date Type Department Care Team (Late st Contact Info) Description 01/30/2024 Refill [facility] [address] [place] [address] Linette [place] MD [address] [place] [address] Anxiety and depression Social History Tobacco Use Types Packs/Day Years Used Date Smoking Tobacco: Never Passive Smoke Exposure: Never Smokeless Tobacco: Never Alcohol Use Standard Drinks/Week Comments Yes 0 (1 standard drink = 0.6 oz pur e alcohol) social Depression Answer Date Recorded Patient Health Questionnaire-9 Score 0 01/27/2024 Patient Health Questionnaire-9 Score 0 01/27/2024 Last PHQ-9: Questionnaire Data Not on file 0 01/27/2024 Housing Stability Answer Date Recorded What is your housing situation today? I have gibranviviane english 03/19/[address] you li ve. Do you have problems with any of the following? None of the above 03/19/2023 Food Insecurity Answer Date Recorded Within the past 12 months, y ou worried that your food would run out before you got money to buy more: Never True 03/19/2023 Within the past 12 months,th e food you bought just didn't last and you didn't have enough money to get more: Never True Transportation Answer Date Recorded In the past 12 months, has l ack of transportation kept you from medical appts, meetings, work or from getting things needed for daily living? No 03/19/2023 Utilities Answer Date Recorded In the past 12 months, has t he electric, gas, oil or water company threatened to shut off services in your home? No 03/19/2023 Depression Answer Date Recorded Patient Health Questionnaire-2 Score 0 01/27/2024 Internet Access Answer Date Recorded Internet Access Q1 Yes 01/30/2024 Internet Access Q2 Not on file 01/30/2024 Comments Unknown Sex and Gender Information Value Date Recorded Sex Assigned at Female 04/01/2022 10:17 AM EDT Legal Sex Female 10:17 AM EDT Gender Identity Female 04/01/2022 10:17 AM EDT Sexual Orientation Straight 01/22/2023 10 :52 AM EDT documented as of this encounter Plan of Treatment Upcoming Encounters Date Type Department Care Team (Late st Contact Info) Description 08/25/2024 10:30 AM EDT Office Visit [facility] [address] [place] [address] Kailye Allan DDS [address] [place] [address] 09/14/2024 10:00 AM EDT Office Visit [facility] [address] [place] [phone] Linette [place] MD [address] [place] [phone] documented as of this encounter Visit Diagnoses Diagnosis Anxiety and depression documented in this encounter Additional Health Concerns Assessment Noted Time PHQ-9 Depression Total Score: 0 01/27/20 24 10:46 AM EDT documented as of this encounter Care Teams Export Coordinator Relationship Specialty Start Date End Date Linette [place] MD [address] [place] [address] [phone] PCP - General Internal Medicine 12/06/22 Justin Rojo FNP [address] [place] [phone] Nurse Practitioner Family Medicine 05/05/23 documented as of this encounter
--- OUTSIDE RECORDS SUMMARY | 2024-08-18 11:43 | XMS_ITS | Encounter Summary ---
Author Organization [employer] Address [address] [facility] [address] [place] [address] Care Team Providers Care Children Teacher Name Role Phone Linette [place] MD Primary Care Pro vider Justin Rojo Unavailable Unavailable Reason for Visit * Reason Comments Med Change Request Encounter Details Date Type Department Care Team (Late st Contact Info) Description 06/17/2023 Refill [facility] [address] [place], [place] [phone] Linette [place] MD [address] [place], [place] [phone] Social History Tobacco Use Types Packs/Day Years Used Date Smoking Tobacco: Never Passive Smoke Exposure: Never Smokeless Tobacco: Never Alcohol Use Standard Drinks/Week Comments Yes 0 (1 standard drink = 0.6 oz pur e alcohol) social Depression Answer Date Recorded Patient Health Questionnaire-9 Score 0 05/15/2023 Patient Health Questionnaire-9 Score 0 05/15/2023 Last PHQ-9: Questionnaire Data Not on file 1 07/16/2022 Housing Stability Answer Date Recorded What is [...] Date Recorded Patient Health Questionnaire-2 Score 0 05/15/2023 Comments Unknown Sex and Gender Information Value [...] Description 08/25/2024 10:30 AM EDT Office Visit [facility] [address] [place] [address] Kailey Allan DDS [address] [place] [phone] 09/14/2024 10:00 AM EDT Office Visit [facility] [address] [place] [phone] Linette [place] MD [address] [place] [phone] documented as of this encounter Visit Diagnoses Not on filedocumented in this encounter Additional Health Concerns Assessment Noted Time PHQ-9 Depression Total Score: 0 05/15/20 9:10 AM EST documented as of this encounter Care Teams Children Teacher Relationship Specialty Start Date End Date Linette [place] MD [address] [place] [phone] PCP - General Internal Medicine 12/06/22 Justin Rojo FNP [address] [place] [phone] Nurse Practitioner Family Medicine 05/05/23 documented as of this encounter
--- OUTSIDE RECORDS SUMMARY | 2024-08-18 11:43 | XMS_ITS | Encounter Summary ---
Author Organization [email or web address] Address [address] [place] [address] Care Team Providers Care Acetylene Burner Name Role Phone Linette Ventura MD Primary Care Pro vider Justin Rojo Unavailable Unavailable Reason for Visit * Reason Comments Med Refill Encounter Details Date Type Department Care Team (Late st Contact Info) Description 06/11/2023 Refill [facility] MED[facility]INE [address] [place], [place] [phone] Melanie Zacarias MD [address] [place], [place] [phone] Social History Tobacco Use Types Packs/Day Years [...] is your housing situation today? I have gibran amador 03/19/[address] you li [...] Description 08/25/2024 10:30 AM EDT Office Visit [facility] ADULT DENTAL [address] [place] [address] Kailey Allan DDS [address] [place] [phone] 09/14/2024 10:00 AM EDT Office Visit [facility] [address] [place] [phone] Linette Ventura MD [address] [place] [phone] documented as of this encounter Visit Diagnoses Not on filedocumented in this encounter Additional Health Concerns Assessment Noted Time PHQ-9 Depression Total Score: 0 05/15/20 9:10 AM EST documented as of this encounter Care Teams Acetylene Burner Relationship Specialty Start Date End Date Linette Ventura MD [address] [place] [phone] PCP - General Internal Medicine 12/06/22 Justin Rojo FNP [address] [place] [phone] Nurse Practitioner Family Medicine 05/05/23 documented as of this encounter
--- OUTSIDE RECORDS SUMMARY | 2024-08-18 11:43 | XMS_ITS | Clinical Summary ---
Author Organization [email or web address] Address [address] [place] [address] Care Team Providers Care Apartment Leasing Manager Name Role Phone Linette Ventura MD Primary Care Pro vider Justin Rojo Unavailable Unavailable Allergies Active Allergy Reactions Criticality Noted Date Comments Oxycodone Hallucinations 06/14/2013 Medications cetirizine (ZyrTEC) 10 MG tabletIndicatio ns:Seasonal allergic rhinitis, unspecified trigger TOME SCOTT TABLETA TODOS LOS D CUANDO SEA NECESARIO 90 tablet 1 06/19/19 23 Active omeprazole (PriLOSEC) [address] capsule TAKE 1 CAPSULE BY MOUTH TWICE A DAY BEFORE A MEAL 180 capsule 01/02/20 23 Active calcium carbonate (Tums Ultra 1000) 1000 MG chewable tablet Chew 2 tablets every 12 (twelve) hours. 10/04/19 22 Active naltrexone (Depade) 50 MG tablet Take 25 mg by mouth in the morning. 03/20/20 23 Active Blood Pressure Monitor kit 1 kit in the morning. 1 kit 03/25/20 23 Active nystatin (Nyamyc) 066264 UNIT/GM powder APPLY TOPICALLY TWICE A DAY 30 g 06/11/19 24 Active buPROPion XL (Wellbutrin XL) 300 MG 24 hr tabletIndicatio ns:Anxiety and depression Take 1 tablet (300 mg) by mouth Once per day. Do not crush, chew, or split. 90 tablet 3 11/03/19 24 Active ibuprofen 800 MG tablet Take 800 mg by mouth every 8 (eight) hours if needed. 09/07/19 24 Active ergocalciferol (Vitamin D2) 1.25 MG (23236 UT) capsule TAKE 1 CAPSULE BY MOUTH ONCE A WEEK 13 capsule 1 05/03/20 24 Active Zepbound 2.5 MG/0.5ML solution auto-injector INJECT 0.5 ML UNDER THE SKIN EVERY 7 (SEVEN) DAYS FOR 28 DAYS. 04/26/20 24 Active Ketotifen Fumarate 0.035 % solution Administer 1 drop into both eyes every 12 (twelve) hours. 5 mL 2 06/10/19 25 Active amLODIPine (Norvasc) 2.5 MG tablet TAKE 1 TABLET BY MOUTH EVERY MORNING 90 tablet 1 06/16/19 25 Active famotidine (Pepcid) 20 MG tablet TAKE 1 TABLET BY MOUTH TWICE A DAY NEEDED 180 tablet 06/16/19 25 Active furosemide (Lasix) 20 MG tabletIndicatio ns:Lower leg edema TAKE 1 TABLET BY MOUTH EVERY MORNING NEEDED FOR SWELLING 90 tablet 1 06/16/19 25 Active hydrOXYzine HCl (Atarax) 25 MG tabletIndicatio ns:Anxiety and depression TAKE 1-2 TABLETS BY MOUTH EVERY 6 HOURS IF NEEDED FOR ANXIETY 200 tablet 1 08/06/19 25 Active hydrOXYzine HCl (Atarax) 25 MG tabletIndicatio ns:Anxiety and depression TAKE 1-2 TABLETS BY MOUTH EVERY 6 HOURS IF NEEDED FOR ANXIETY 200 tablet 1 06/10/19 25 025 Discontinued Active Problems Problem Noted Date Diagnosed Date Sweating abnormality 03/31/2024 Postural dizziness with presyncope 01/27/2024 Dental caries 08/01/2023 Non-restorable tooth 08/01/2023 Dental caries on smooth surface limited to ename l 07/02/2023 Abdominal wall pain 05/19/2023 Retained dental root 03/27/2023 HLD (hyperlipidemia) 03/25/2023 Obesity 03/25/2023 Hypertension 03/25/2023 Shoulder pain 01/22/2023 Osteoarthritis of left knee 12/03/2022 Health care maintenance 12/03/2022 Overview (12/03/2022): Routine Health Maintenance: Immunizations: HIV: CDC recommends that everyone between the ages of 13 and 64 get tested for HIV at least once as part of routine health care. For people with certain risk factors, CDC recommends getting tested at least once a year. Hep C: The USPSTF recommends screening for hepatitis C virus (HCV) infection in adults aged 18 to 79 years. One-time screening for most adults. Periodically screen persons with continued risk for HCV infection Hepatitis B: 2022 guidelines CDC recommends screen all adults aged 18 years and older at least once in their lifetime using a triple panel test. patients screen every Pap Smear: 10/30/22 performed [facility], pending results Mammogram: Per ACS screening start age 45, earlier if risk factors present. Per USPSTF guidelines screenings Age 50-74 screening every other year. BMD: >age 65 Colonoscopy: Per ACS age 45-75 average risk regular screening with annual fecal test, stool DNA test every 3 years, or visual exam (colonoscopy every [address] colonography every 5 years). Continue screening >age 75 if in good health and life expectancy > 10 years. PSA: Per ACS shared decision-making of uncertainties, risks, and potential benefits . Screening start age 50 average risk. Age 45 if high risk. Lung cancer: Per USPSTF annual low-dose lung CT scan age 50-80 who meet criteria: current smoker or quit in last 15 years; at least 20 pack history Eye: Dental: Anxiety and depression 06/13/2022 Assessment & Plan (11/03/2023 9:58 AM EDT): She is stable and doing well emotionally. Continue Bupropion XL 300 mg daily and Hydroxyzine 25 mg 1-2 q 6 h prn anxiety. Since this provider will be retiring, patient is now referred back to her PCP for further medication management. Any issues or concerns, contact [facility]. All her questions were answered and I have wished her well. She agrees with the plan. Assessment & Plan (08/12/2023 9:32 AM EDT): She is stable and doing well emotionally. Continue Bupropion XL 300 mg daily and Hydroxyzine 25 mg 1-2 q 6 h prn anxiety. On 05/15/2023 provider informed pt that I would be retiring, but we would plan for smooth transition of care. Meanwhile F/U with me in 2-3 months. She agrees with the plan. Assessment & Plan (05/15/2023 9:27 AM EST): She is stable and doing well emotionally. Continue Bupropion XL 300 mg daily and Hydroxyzine 25 mg 1-2 q 6 h prn anxiety. Today 05/15/2023 provider informed pt that I would be retiring within approx 1/2 year. F/U with me in 2-3 months. She agrees with the plan. Assessment & Plan (08/22/2022 10:48 AM EDT): She is still doing well emotionally. Muscle twitching has resolved. Continue current plan. F/U with me in 2-3 months. She agrees with the plan. Assessment & Plan (06/13/2022 1:50 PM EST): She is doing very well emotionally. It is possible that the symptom of muscle twitching could be r/t her Wellbutrin, however it is very mild and occurs rarely. Rather than consider med changes at this time (e.g., switch to short-acting formula), she would like to just keep things as is for now. F/U with me in 2 months. She agrees with the plan. Cobalamin deficiency 03/06/2015 Edema of lower extremity 03/06/2015 Gastroesophageal reflux disease 03/06/2015 Intertrigo 03/06/2015 Iron deficiency anemia 03/06/2015 Encounters Date Type Department Care Team Description 08/13/2024 Population Health Risk Score [facility] (C[facility]) Department [address] [phone] Provider, Population Health Generic 08/05/2024 Refill [facility] MEDICINE [address] [place] [address] Melanie Zacarias MD Anxiety and depression 07/05/2024 Telephone [facility] MED[facility]INE [address] [place] [address] Toya Boogie MA august recall 06/22/2024 8:30 AM EST Office Visit [facility] ADULT DENTAL [address] [place] [address] Kailey Allan DDS 06/16/2024 11:00 AM EST Office Visit [facility] ADULT DENTAL [address] [place] [address] Kailey Allan DDS 06/16/2024 Travel 06/16/2024 Refill [facility] MED & PEDS [address] [place] [address] Linette Ventura MD Lower leg edema 06/09/2024 Refill [facility] MEDICINE [address] [place] [address] Linette Vnetura MD 06/09/2024 Refill [facility] MEDICINE [address] [place], [place] [phone] Jo Ann Manriquez MD Anxiety and depression 05/28/2024 1:00 PM EST Office Visit [facility] ADULT DENTAL [address] [place] [address] Kailey Allan DDS from Last 3 Months Immunizations Name Administration Dates Next Due Influenza, IIV3, injectable 03/26/2011, 7 Pfizer Covid-19 Vaccine 12+ Bivalent 01/22/2023 TD (adult), 2 Lf tetanus tox oid, preservative free, adsorbed 01/05/2008 Tdap 04/30/2018 Zoster, Recombinant 12/31/2021,10/12/2021 Family History Medical History Relation Name Comments HTN Father Prostate cancer Father Breast cancer Father's Sister DM2 Mother Relation Name Status Comments Father Father's Sister Mother Social History Tobacco Use Types Packs/Day Years Used Date Smoking Tobacco: Never Passive Smoke Exposure: Never Smokeless Tobacco: Never Tobacco Cessation:Counseling Given: Not Answered Alcohol Use Standard Drinks/Week Comments Yes 0 [...] Orientation Straight 01/22/2023 10 :52 AM EDT Last Filed Vital Signs Vital Sign Reading Time Taken Comments Blood Pressure 128/82 05/12/2024 11:21 AM EST Pulse 67 03/31/2024 10:25 AM EDT Temperature 36.7 ??C (98 ??F) 03/31/2024 10:25 AM EDT Respiratory Rate 20 03/31/2024 10:25 AM EDT Oxygen Saturation 96% 03/31/2024 10:25 AM EDT Inhaled Oxygen Concentration - - Weight 93 kg (205 lb) 03/31/2024 10:25 AM EDT Height 154.9 cm (5' 1 ) 03/31/2024 10:25 AM EDT Body Mass Index 38.73 03/31/2024 10:25 AM EDT Plan of Treatment Upcoming Encounters Date Type Department Care Team (Late st Contact Info) Description 08/25/2024 10:30 AM EDT Office Visit [facility] ADULT DENTAL [address] [place] [address] Kailey Allan, DDS [address] [facility] [place], [place] [phone] 09/14/2024 10:00 AM EDT Office Visit [facility] MEDICINE [address] [place], [place] [phone] Linette Ventura MD [address] [place], [place] [phone] Health Maintenance Due Date Last Done Comments CT Colonography 1971 FIT DNA/Cologuard 1971 FIT 1971 FOBT 1971 Sigmoidoscopy 1971 Hepatitis B Vaccines (1 of 3 - 19+ 3-dose series) 1990 Dental Prophylaxis 02/19/2016 08/18/2015, 0 09/06/2014, 07/29/2013, Additional history exists Pneumococcal Vaccine: 50+ Years (1 of 1 - PCV) 2021 Dental Oral Exam 08/01/2022 01/31/2022, 05/2015, 09/06/2014, Additional history exists COVID-19 Vaccine (2 - season) 2024 01/22/2023 Influenza Vaccine (#1) 2024 03/26/2011, 2006 Dental X-Ray: Bitewings 02/27/2024 02/26/20 23, 01/31/2022, 08/15/2014, Additional history exists Diagnostic Breast Imaging 05/06/2024 11/05/2023 SDOH Screening 08/05/2024 08/06/2023 Colonoscopy 08/24/2024 08/25/2019 Colorectal Cancer Screening 08/24/2024 Depression Screening 01/26/2025 01/27/2024, 01/27/20 24 Alcohol/Substance Use Screening 03/31/2025 03/31/2024 Tobacco Screening 06/22/2025 06/22/2024 Pap Smear 10/31/2025 10/31/2022, 10/30/2022 Dental X-Ray: Full Mouth 08/20/2026 08/20/2023, 09/0 06/2021 Cervical Cancer Screening 10/31/2027 HPV/Cotest 10/31/2027 10/30/2022, 07/03, 11/05/2017 DTaP/Tdap/Td Vaccines (2 - Td or Tdap) 04/30/2028 04/30/2018, 01/05/2008 Lipid Panel 03/25/2029 03/25/2024, 01/02, 10/03/2021, Additional history exists RSV Patients and Patients Aged 60 years or older (1 - 1-dose 75+ series) 2046 Zoster Vaccines Completed 12/31/2021, 10/12/2021 HIV Screening Completed 03/25/2024, 01/02, 10/03/2021 Hepatitis C Screening Completed 03/25/2024 , 01/29/2023, 10/03/2021 HIB Vaccines Aged Out No longer eligi ble based on patient's age to complete this topic HPV Vaccines Aged Out No longer eligi ble based on patient's age to complete this topic Hepatitis A Vaccines Aged Out No long er eligible based on patient's age to complete this topic IPV Vaccines Aged Out No longer eligi ble based on patient's age to complete this topic Meningococcal Vaccine Aged Out No benedict jimmy eligible based on patient's age to complete this topic RSV under 20 months Aged Out No longe r eligible based on patient's age to complete this topic Rotavirus Vaccines Aged Out No longer eligible based on patient's age to complete this topic Procedures Procedure Name Priority Date/Time Associated Diagnosis Comments DENTURE FOLLOWUP Routine 06/22/2024 8:30 AM EST DENTURE IMPRESSION Routine 06/16/2024 11 :00 AM EST DENTURE IMPRESSION Routine 05/28/2024 1: 00 PM EST HEPATITIS C AB W/REFL TO HCV RNA, QN, PCR Routine 03/25/2024 9:30 AM EDT Annual physical exam HIV 1/2 ANTIGEN/ANTIBODY, FOURTH GENERATION W/RFL Routine 03/25/2024 9:30 AM EDT Annual physical exam LIPID PANEL, STANDARD Routine 03/25/2024 9:30 AM EDT Annual physical exam BI MAMMOGRAM DIAGNOSTIC TOMOSYNTHESIS RIGHT Routine 11/05/2023 11:38 AM EDT PANORAMIC RADIOGRAPHIC IMAGE Routine 08/20/2023 10:00 AM EDT Exostosis BITEWING - SINGLE RADIOGRAPHIC IMAGE Routine 02/25/2023 9:30 AM EDT Dental caries Dental abscess HM PAP/HPV Routine 10/31/2022 HPV MRNA E6/E7 REFLEX TO HPV 16, 18/45 Routine 10/30/2022 2:48 PM EDT COMPREHENSIVE ORAL EVALUATION - NEW OR ESTABLISHED PATIENT Routine 01/31/2022 12:00 AM EDT HM COLONOSCOPY Routine 08/25/2019 12:29 PM EDT PROPHYLAXIS - ADULT Routine 08/18/2015 1 2:00 AM EDT from Last 3 Months or Most Recently Relevant to Health Maintenance Results * Hepatitis C Antibody with Reflex to HCV, RNA, Quantitative, Real-Time PCR (03/25/2024 9:30 AM EDT) Hepatitis C Antibody Nonreactive Nonreactive [facility] Comment:Antibodies to HCV no t detected; does not exclude early acuteHCV infection. Blood Venous blood specimen / Unknown 03/25/2024 9:30 AM EDT 03/25/2024 10:59 AM EDT Linette Levy MD LAB BLOOD ORDERAB LES Final Result [facility] [address] [place] [phone] * HIV-1/2 Antigen and Antibodies, Fourth Generation, with Reflexes (03/25/2024 9:30 AM EDT) HIV AB/AG Nonreactive Nonreactive [facility] Comment:HIV-1 p24 Ag and/or HIV-1/HIV-2 Ab not detected.A test result that is nonreactive does not exclude thepossibility of exposure to or infection with HIV-1 and/orHIV-2. Nonreactive results in this assay for individualswith prior exposure to HIV-1 and/or HIV-2 may be due toantigen and antibody levels that are below the limit ofdetection of this assay.The [employer] HIV Ag/Ab Combo assay result andsupplemental assay results should be interpreted inconjunction with the patient's clinical presentation,history and other laboratory results. If the results areinconsistent with clinical evidence, additional testing issuggested to confirm the result. Blood Venous blood specimen / Unknown 03/25/2024 9:30 AM EDT 03/25/2024 10:59 AM EDT us Linette Levy MD LAB BLOOD ORDERAB LES Final Result Performing Organization Address [facility]/State/ZIP Co de Phone Number [facility] [address] [place] [address] [phone] * (ABNORMAL) Lipid Panel, Standard (03/25/2024 9:30 AM EDT) Triglycerides 81 <150 mg/dL [facility] Comment:Desirable Triglyceri de: less than 150 mg/dLBorderline High Triglyceride 150-199 mg/dLHigh Triglyceride: 200-499 mg/dLVery High Triglyceride: greater than or equal to 5OO mg/dL Cholesterol 188 <200 mg/dL [facility] Comment:Desirable Cholestero l: less than 200 mg/dLBorderline High Cholesterol: 200-239 mg/dLHigh Cholesterol: greater than 239 mg/dL LDL Cholesterol Calculated 111(H) <100 mg/dL [facility] Comment:Desirable LDL: less than 100 mg/dLNear Optimal/Above Optimal LDL: 110- 129 mg/dLBorderline High LDL: 130-159 mg/dLHigh LDL: 160-189 mg/dLVery High LDL: greater than or equal to 190 mg/dL HDL Cholesterol 61 >40 mg/dL [facility] Comment:Desirable HDL: great er than 40 mg/dL Note: This HDL assay may give artificially low results in patients with liver disease. Blood Venous blood specimen / Unknown 03/25/2024 9:30 AM EDT 03/25/2024 10:59 AM EDT us Linette Levy MD LAB BLOOD ORDERAB LES Final Result [facility] [address] [place] [phone] * BI Mammogram Diagnostic Tomosynthesis Right (11/05/2023 11:38 AM EDT) Anatomical Region Laterality Modality Breast Right Mammography 11/05/2023 11:3 8 AM EDT Narrative 11/05/2023 12:24 PM EDT ? [facility] ? [address] ?[place] [address] ? Mammography Report ? Signed ? Patient: Grant,Carla ?MR#: [id number] ?? [id number] ? : 1970 ?Acct:[id number] ? Age/Sex: 53 / F ?ADM Date: 11/05/23 ? Loc: HO.MAMMO ? Attending Dr: Linette Levy MD ? Ordering Physician: Linette Ventura MD ?Results: 3.6MProbably Benign Finding - Short 6 M ?? F/U Suggested ? Date of Service: 11/05/23 ?Follow Up: 6 Month F/U ? Procedure(s): MM tomosynthesis diagnostic RT ?? Accession Number(s): [id number] ? cc: Linette Ventura MD ? EXAMINATION: ?? MM DIAGNOSTIC DIGITAL BREAST TOMOSYNTHESIS, RIGHT ? CLINICAL INFORMATION: ? 6 month follow-up for calcifications right breast 11:30 o'clock ?? position, anterior one third. ? COMPARISON: ?? Mammography: 04/22/2023 (BI-RADS 3), 03/25/2023 (BI-RADS 0), and ?? multiple more remote studies. ? TECHNIQUE: ?? Digital right breast tomosynthesis is performed in both the ?? craniocaudal and mediolateral oblique views along with computer-aided ?? detection (CAD). Synthesized 2D images are generated from the ?? tomosynthesis. In addition, 2-D spot magnification right ML and CC ?? views were also obtained of the right breast. ? FINDINGS: ?? There are scattered areas of fibroglandular density (ACR BI-RADS breast ?? composition Category b). ? In the right breast in the 11:30 o'clock axis, anterior one third, ?? there are entirely unchanged benign-appearing grouped calcifications ?? with grossly coarse morphology. No pleomorphism, linear or branching ?? forms. These remain probably benign. Six-month follow-up recommended. ? No additional suspicious abnormalities right breast. ? MM/MM tomosynthesis diagnostic RT ?? IMPRESSION: ?? Stable probably benign right breast calcifications for which six-month ?? follow-up recommended to include standard magnification views, when the ?? patient is due for bilateral screening. ? ASSESSMENT: ? BI-RADS BI-RADS 3 - Probably benign finding(s) - 6 month follow-up ?? suggested ? RECOMMENDATION: ?? 6 Month F/U ? Results were provided to the patient at time of visit by the ?? technologist. ? This patient's information was entered into a reminder system with a ?? target due date for their next mammogram. ? Dictated By: ?Zeke Singer MD ? Signed By: ?<Electronically signed by Zeke Singer MD in OV> ?11/05/23 1221 ? DD/ 1138 ? TD/TT: ? Vacuum Extractor Operator: ? Procedure Note Donotuseinterpreter, Image - 11/05/2023 [facility] [address] [place] [address] [place] [address] Mammography Report Signed Patient: Carla GrantMR#: [id number] : 1970Acct:[id number] Age/Sex: 53 / FADM Date: 11/05/23 Loc: HO.MAMMO Attending Dr: Linette Levy MD Ordering Physician: Linette Ventura MD Results: 3.6MProbably Benign Finding - Short 6 M F/U Suggested Date of Service: 11/05/23Follow Up: 6 Month F/U Procedure(s): MM tomosynthesis diagnostic RT Accession Number(s): [id number] cc: Linette Ventura MD EXAMINATION: MM DIAGNOSTIC DIGITAL BREAST TOMOSYNTHESIS, RIGHT CLINICAL INFORMATION: 6 month follow-up for calcifications right breast 11:30 o'clock position, anterior one third. COMPARISON: Mammography: 04/22/2023 (BI-RADS 3), 03/25/2023 (BI-RADS 0), and multiple more remote studies. TECHNIQUE: Digital right breast tomosynthesis is performed in both the craniocaudal and mediolateral oblique views along with computer-aided detection (CAD). Synthesized 2D images are generated from the tomosynthesis. In addition, 2-D spot magnification right ML and CC views were also obtained of the right breast. FINDINGS: There are scattered areas of fibroglandular density (ACR BI-RADS breast composition Category b). In the right breast in the 11:30 o'clock axis, anterior one third, there are entirely unchanged benign-appearing grouped calcifications with grossly coarse morphology. No pleomorphism, linear or branching forms. These remain probably benign. Six-month follow-up recommended. No additional suspicious abnormalities right breast. MM/MM tomosynthesis diagnostic RT IMPRESSION: Stable probably benign right breast calcifications for which six-month follow-up recommended to include standard magnification views, when the patient is due for bilateral screening. ASSESSMENT: BI-RADS BI-RADS 3 - Probably benign finding(s) - 6 month follow-up suggested RECOMMENDATION: 6 Month F/U Results were provided to the patient at time of visit by the technologist. This patient's information was entered into a reminder system with a target due date for their next mammogram. Dictated By: Zeke Singer MD Signed By: <Electronically signed by Zeke Singer MD in OV> 11/05/23 1221 DD/ 1138 TD/TT: Vacuum Extractor Operator: Linette Levy MD IMG BI PROCEDURES Final Result * Pap Smear (10/31/2022) Pap smear NILM HPV neg Historical Provider HEALTH MAINTENANCE Final Result * HPV mRNA E6/E7 w/Reflex to HPV Genotypes 16, 18/45 (10/30/2022 2:48 PM EDT) HPV nRNA E6/E7 Not Detected Not Detected [facility] Comment:Methodology: Transcr iption-Mediated AmplificationThis assay detects E6/E7 viral messenger RNA (mRNA) from 14high-risk HPV types (16,18,31,33,35,39,45,51,52,56,58,59,66,68).Cervical sources are required for HPV testing.If a vaginal source from a patient who has had atotal hysterectomy with removal of cervix wassubmitted, please contact the testing laboratoryfor alternative testing options.For additional information, please refer [email or web address]/[email or web address](This link if provided for information/educational purposes only.)THIS TEST WAS PERFORMED AT:[email or web address] [place] [phone] GATES MD HPV mRNA E6/E7 TNP [facility] HPV 16 RNA [facility] HPV 18/45 RNA [facility] 10/30/2022 2:48 PM EDT 10/31/2022 8:30 AM EDT [facility] External Provider LAB CYT OLOGY ORDERABLES Final Result [facility] [address] [place] [address] [phone] * Hm Colonoscopy (08/25/2019 12:29 PM EDT) Historical Provider MD HEALTH MAINTENANCE Final Result from Last 3 Months or Most Recently Relevant to Health Maintenance Insurance [facility] C3 DENTAL-[facility] MEDICAID STAND ADULT Care Teams Apartment Leasing Manager Relationship Specialty Start Date End Date Lniette Ventura MD [address] [place], [place] [phone] PCP - General Internal Medicine 12/06/22 Justin Rojo FNP [address] [place] [address] Nurse Practitioner Family Medicine 05/05/23
--- OUTSIDE RECORDS SUMMARY | 2024-08-18 11:43 | XMS_ITS | Encounter Summary ---
Author Organization [employer] Address [address] [facility] [address] [place] [address] Care Team Providers Care Water Pump Operator Name Role Phone Tigist Bartholomew BABATUNDE Primary Care Provider [phone] Linette Ventura MD Primary Care Pro vider Justin Rojo Unavailable Unavailable Reason for Visit * Reason Comments Med Refill Encounter Details Date Type Department Care Team (Late st Contact Info) Description 07/03/2022 Refill [facility] [address] [place] [address] Justin Rojo FNP Anxiety and depression (Primary Dx) Social History Tobacco Use Types Packs/Day Years Used Date Smoking Tobacco: Never Assessed Comments Unknown Sex and Gender Information Value Date Recorded Sex Assigned at Female 04/01/2022 10:17 AM EDT Legal Sex Female 10:17 AM EDT Gender Identity Female 04/01/2022 10:17 AM EDT Sexual Orientation Straight 01/22/2023 10 :52 AM EDT documented as of this encounter Miscellaneous Notes * Telephone Encounter - BABATUNDE Nelson - 07/04/2022 3:58 PM EST Patient is taking Wellbutrin XL 300 mg once daily. She is not taking Wellbutrin XL 150 mg. documented in this encounter Plan of Treatment Upcoming Encounters Date Type Department Care Team (Late st Contact Info) Description 08/25/2024 10:30 AM EDT Office Visit [facility] [address] [facility] [place] [address] Kailey Allan DDS [address] [place] [address] 09/14/2024 10:00 AM EDT Office Visit [facility] [address] [place] [address] Linette Ventura MD [address] [place] [address] documented as of this encounter Visit Diagnoses Diagnosis Anxiety and depression- Primary documented in this encounter Additional Health Concerns Assessment Noted Time PHQ-9 Depression Total Score: 0 06/13/19 10:39 AM EST documented as of this encounter Care Teams Water Pump Operator Relationship Specialty Start Date End Date Tigist Bartholomew FNP PCP - General Family Medicine 12/09/21 12/05/22 Linette Ventura MD [address] [place] [address] PCP - General Internal Medicine 12/06/22 Justin Rojo FNP [address] [place] [id number] Nurse Practitioner Family Medicine 05/05/23 documented as of this encounter
--- OUTSIDE RECORDS SUMMARY | 2024-08-18 11:43 | XMS_ITS | Clinical Summary ---
Author Organization [facility] Address [address] [place] [address] Phone Care Team Providers Care Christmas Tree Contractor Name Role Phone Justin Rojo NP Primary Care Provider [phone] Allergies Active Allergy Reactions Criticality Noted Date Comments Other Hallucinations 05/08/2021 Percocet [Apap-fd&c Blue #1-oxycodone] Oxycodone Hallucinations 06/14/2013 Medications naltrexone (DEPADE) 50 mg tablet TOME 1 TABLETA POR VIA ORAL TODOS [place] BECKER 07/08/2023 Active topiramate (TOPAMAX) 50 mg tablet TOME 1 TABLETA POR VIA ORAL TODOS [place] BECKER 10/09/2023 Active OMEPRAZOLE ORAL Take by mouth. Active furosemide (LASIX) 20 mg tablet Take 10 mg by mouth daily. Active busPIRone (BUSPAR) 15 mg tablet Take 15 mg by mouth 3 times daily. Active HYDROCHLOROTHIAZ YAW ORAL Take 25 mg by mouth daily. Active CHOLECALCIFEROL, VITAMIN D3, ORAL Take 3,000 mg by mouth daily. Active tirzepatide, weight loss, (ZEPBOUND) 10 mg/0.5 mL injectionIndicat ions:Class 2 obesity due to excess calories with body mass index (BMI) of 39.0 to 39.9 in adult, unspecified whether serious comorbidity present Inject 0.5 mL (10 mg total) under the skin every 7 (seven) days. 2 mL 1 07/14/2024 Active Active Problems Problem Noted Date Diagnosed Date Class 3 severe obesity with body mass index (BMI) of 40.0 to 44.9 in adult 03/09/2024 Encounters Date Type Department Care Team Description 06/17/2024 Telephone [facility] - [place] [address] [facility] [address] [place] [address] Crystal Kowalski MD Med Refill (Zepbound) from Last 3 Months Surgical History Surgery Date Site/Laterality Comments SECTION PROCEDURE: HISTORICAL DELIVERY GASTRIC BYPASS PROCEDURE: AL GASTRIC RSTCV W/BYP W/SM INT RCNSTJ LIMIT ABSRPJ OTHER SURGICAL HISTORY PROCEDURE: AL LAPS GASTRIC RESTRICTIVE PROCEDURE PLACE DEVICE OTHER SURGICAL HISTORY 06/11/2021 PROCEDURE: AL LAPS TOTAL HYSTERECT 250 GM/< W/RMVL TUBE/OVARY; COMMENT: Robot assisted total laparoscopic hysterectomy, left salpingo-oophorectomy, right salpingectomy, lysis of pelvic adhesions. Medical History Medical History Date Comments Hypertension DX:Hypertension Anemia DX:Anemia IBS (irritable bowel syndrome) D X:IBS (irritable bowel syndrome) Obesity DX:Obesity Family History Medical History Relation Name Comments Prostate cancer Father Relation Name Status Comments Father Social History Tobacco Use Types Packs/Day Years Used Date Smoking Tobacco: Never Alcohol Use Standard Drinks/Week Comments Never 0 (1 standard drink = 0.6 oz pur e alcohol) Comments Unknown Sex and Gender Information Value Date Recorded Sex Assigned at Not on file Legal Sex Female 3:14 PM EST Gender Identity Not on file Sexual Orientation Not on file Obstetrics History Last Filed Vital Signs Vital Sign Reading Time Taken Comments Blood Pressure 110/71 04/20/2024 9:58 AM EST Pulse 67 04/20/2024 9:58 AM EST Temperature 36.2 ??C (97.2 ??F) 04/20/2024 9:58 AM ES T Respiratory Rate - - Oxygen Saturation - - Inhaled Oxygen Concentration - - Weight 93.9 kg (207 lb) 04/20/2024 9:58 AM EST Height 154.9 cm (5' 1 ) 04/20/2024 9:58 AM EST Body Mass Index 39.11 04/20/2024 9:58 AM EST Plan of Treatment Upcoming Encounters Date Type Department Care Team ([facility] st Contact Info) Description 08/19/2024 10:00 AM EDT Office Visit [facility] - [place] [address] [facility] [address] [place] [address] Crystal Kowalski MD [address] [facility] [address] [place] [address] Health Maintenance Due Date Last Done Comments Breast Cancer Screening 1971 Hepatitis B Vaccines (1 of 3 - 19+ 3-dose series) 1990 Pneumococcal Vaccine: 50+ Years (1 of 1 - PCV) 2021 Colorectal Cancer Screening: Colonoscopy 05/01/2022 Social Influencers of Health Screening 05/01/2022 COVID-19 Vaccine (2 - 2023-2 5 season) 2024 01/22/2023 Influenza Vaccine (#1) 2024 1, 04/28/2007 Depression Screening 01/26/2025 01/27/2024 Hypertension/CHF/CAD Annual BMP Blood Test 03/25/2025 03/25/2024, 05/13/2023 Cervical Cancer Screening: HPV 10/31/2027 10/30/2022 DTaP,Tdap,and Td Vaccines (3 - Td or Tdap) 04/30/2028 04/30/2018, 01/05/2008 Cholesterol Screening (Lipid Panel) 03/25/2029 03/25/2024, 01/29/2023 Zoster Vaccines Completed 12/31/2021, 10/12/2021 HIV Screening Completed 03/25/2024, 01/29/2023 Hepatitis C Screening Completed 03/25/2024 , 01/29/2023 HIB Vaccines Aged Out No longer eligi [...] on patient's age to complete this topic MMR Vaccines Aged Out No longer eligi ble based on patient's age to complete this topic Meningococcal ACWY Vaccine Aged Out N o longer eligible based on patient's age to complete this topic Meningococcal B Vacine Aged Out No lo nger eligible based on patient's age to complete this topic Pneumococcal Vaccine: Pediatrics (0 to 5 Years) and At-Risk Patients (6 to 64 Years) Aged Out No longer eligible b ased on patient's age to complete this topic RSV Immunization Patients Under 20 months Aged Out No longer eligible b ased on patient's age to complete this topic Varicella Vaccines Aged Out No longer eligible based on patient's age to complete this topic Procedures Procedure Name Priority Date/Time Associated Diagnosis Comments ANNUAL BMP BLOOD TEST Routine 05/13/2023 HEPATITIS C SCREENING Routine 01/29/2023 HIV SCREENING Routine 01/29/2023 LIPID PANEL Routine 01/29/2023 HPV Routine 10/30/2022 from Last 3 Months or Most Recently Relevant to Health Maintenance Results * Annual BMP Blood Test (05/13/2023) [facility] Annual BMP Blood Test abstracted [facility] Provider HEALTH MAINTENANCE Final Result * HIV Screening (01/29/2023) [facility] HIV Screening abstracted Result [facility] Provider HEALTH MAINTENANCE Final Result * Hepatitis C Screening (01/29/2023) [facility] Hepatitis C Screening abstracted Result [facility] Provider HEALTH MAINTENANCE Final Result * Lipid panel (01/29/2023) [facility] LDL/HDL Ratio 0 Comment:no interpretation Triglycerides 0 mg/dL Comment:no interpretation Cholesterol 0 mg/dL Comment:no interpretation HDL 0 mg/dL Comment:no interpretation LDL Cholesterol 0 mg/dL Comment:no interpretation Blood Venous blood specimen / Unknown Result [facility] Provider LAB BLOOD ORDERABLES Hayley l Result * Cervical Cancer Screening: HPV (10/30/2022) [facility] Cervical Cancer Screening: HPV no interpretation , abstracted [facility] Provider HEALTH MAINTENANCE Final Result from Last 3 Months or Most Recently Relevant to Health Maintenance Insurance MEDICAID - [place] Care Teams Christmas Tree Contractor Relationship Specialty Start Date End Date Justin Rojo NP [address] [place], [place] PCP - General 03/20/23
--- OUTSIDE RECORDS SUMMARY | 2024-08-18 11:43 | XMS_ITS | Encounter Summary ---
Author Organization [employer] Address [address] [facility] [address] [place] [address] Care Team Providers Care X Ray Developing Machine Operator Name Role Phone Tigist Bartholomew MEDICAL CENTER MANAGER Primary Care Provider [phone] Linette Ventura MD Primary Care Pro vider Justin Rojo Unavailable Unavailable Reason for Visit * Reason Comments Med Refill Encounter Details Date Type Department Care Team (Late st Contact Info) Description 05/06/2022 Refill [facility] [address] [place], [place] [id number] Tigist Bartholomew FNP [address] [place] [address] Dept [place] [address] Social History Tobacco Use Types Packs/Day Years [...] Description 08/25/2024 10:30 AM EDT Office Visit [facility] [address] [place] [address] Kailey Allan, DDS [address] [place], [place] [id number] 09/14/2024 10:00 AM EDT Office Visit [facility] [address] [place] [address] Linette Ventura MD [address] [place] [address] documented as of this encounter Visit Diagnoses Not on filedocumented in this encounter Care Teams X Ray Developing Machine Operator Relationship Specialty Start Date End Date Tigist Bartholomew FNP PCP - General Family Medicine 12/09/21 12/05/22 Linette Ventura MD [address] [place] [id number] PCP - General Internal Medicine 12/06/22 Justin Rojo FNP [address] [place] [id number] Nurse Practitioner Family Medicine 05/05/23 documented as of this encounter
--- OUTSIDE RECORDS SUMMARY | 2024-08-18 11:43 | XMS_ITS | Encounter Summary ---
Author Organization [employer] Address [address] 7[address] [place] [address] Care Team Providers Care Electric Shovel Operator Name Role Phone Tigist Bartholomew Lina SENIOR AIR DIRECTOR Primary Care Provider +1- [phone] Linette Ventura MD Primary Care Pro vider Justin Rojo SENIOR AIR DIRECTOR Unavailable Unavailable Encounter Details Date Type Department Care Team (Late st Contact Info) Description 07/03/2022 Orders Only [facility] MEDICINE [address] [place] [address] Carly Hollingsworth LPN Social History Tobacco Use Types Packs/Day Years Used Date Smoking Tobacco: Never Assessed Comments Unknown Sex and Gender Information Value Date Recorded Sex Assigned at Female 04/01/2022 10:17 AM EDT Legal Sex Female 10:17 AM EDT Gender Identity Female 04/01/2022 10:17 AM EDT Sexual Orientation Straight 01/22/2023 10 :52 AM EDT documented as of this encounter Miscellaneous Notes * Result Encounter Note - Linette Levy MD - 07/03/2022 9:10 AM EST Please call patient to advise to come to already scheduled apt with me to go over abnormal labs Thanks documented in this encounter Plan of Treatment Upcoming Encounters Date Type Department Care Team (Late st Contact Info) Description 08/25/2024 10:30 AM EDT Office Visit [facility] CHC ADULT DENTAL [address] [place], [place] [phone] Kailey Allan, DDS [address] [place] [address] 09/14/2024 10:00 AM EDT Office Visit [facility] MEDICINE [address] [place] [address] Linette Ventura MD [address] [place] [address] documented as of this encounter Procedures Procedure Name Priority Date/Time Associated Diagnosis Comments HEPATITIS C ANTIBODY REFLEX Routine 01/29/2023 10:21 AM EDT HIV ANTIBODY/ANTIGEN ([place] DPH) Routine 01/29/2023 10:21 AM EDT VITAMIN D,25-OH,TOTAL,IA Routine 01/29/2023 10:21 AM EDT HEPATITIS B SURFACE ANTIGEN, EIA Routine 01/29/2023 10:21 AM EDT HPV MRNA E6/E7 REFLEX TO HPV 16, 18/45 Routine 10/30/2022 2:48 PM EDT PAP SMEAR Routine 10/30/2022 2:48 PM EDT SURESWAB(R) ADVANCED VAGINITIS, TMA Routine 10/30/2022 1:31 PM EDT CHLAMYDIA/N. GONORRHOEAE RNA, TMA, UROGENITAL Routine 10/30/2022 1:31 PM EDT GROSS AND MICROSCOPIC LEVEL 3 Routine 09/06/2022 8:06 AM EDT CREATININE, SERUM Routine 07/17/2022 3:1 8 PM EST UREA NITROGEN (BUN) Routine 07/17/2022 3 :18 PM EST documented in this encounter Results * Hepatitis B surface antigen, EIA (01/29/2023 10:21 AM EDT) Pathologist [facility] Hepatitis B Surface Ag Negative Negative [facility] 01/29/2023 10:2 1 AM EDT 01/29/2023 11:25 AM EDT us Linette Levy MD LAB BLOOD ORDERAB LES Final Result Performing Organization Address City/[facility]/ZIP Co de Phone Number [facility] [address] [place] [address] [phone] * HIV Ab/Ag ([facility]) (01/29/2023 10:21 AM EDT) [facility] HIV AB/AG Nonreactive Nonreactive [facility] Comment:HIV-1 p24 Ag and/or HIV-1/HIV-2 Ab not detected.A test result that is nonreactive does not exclude thepossibility of exposure to or infection with HIV-1 and/orHIV-2. Nonreactive results in this assay for individualswith prior exposure to HIV-1 and/or HIV-2 may be due toantigen and antibody levels that are below the limit ofdetection of this assay.The [employer] HIV Ag/Ab Combo assay result andsupplemental assay results should be interpreted inconjunction with the patient's clinical presentation,history and other laboratory results. If the results areinconsistent with clinical evidence, additional testing issuggested to confirm the result. 01/29/2023 10:2 1 AM EDT 01/29/2023 11:25 AM EDT us Linette Levy MD LAB BLOOD ORDERAB LES Final Result Performing Organization Address [facility]/ZIP Co de Phone Number [facility] [address] [place] [address] [phone] * Hepatitis C Antibody Reflex (01/29/2023 10:21 AM EDT) Hepatitis C Antibody Nonreactive Nonreactive [facility] Comment:Antibodies to HCV no t detected; does not exclude early acuteHCV infection. 01/29/2023 10:2 1 AM EDT 01/29/2023 11:25 AM EDT Linette Levy MD LAB BLOOD ORDERAB LES Final Result Performing Organization Address [facility]/ZIP Co de Phone Number [facility] [address] [place] [phone] * Vitamin D, 25-Hydroxy, Total, Immunoassay (01/29/2023 10:21 AM EDT) Pathologist [facility] Vitamin D 25-OH Total 16.4 >30 ng/mL [facility] Comment:Health Based Referen ce Values*< 20 ng/mL Odafohlsy27-35 ng/mL Insufficient> 30 ng/mL Sufficient*Merissa OQUENDO. N Engl J Med. 2007;357:266-280Care must be taken in interpreting Vitamin D results fromdifferent laboratories and methodologies. Published datademonstrated that results from patients undergoinghemodialysis may show a negative bias when tested withvarious automated 25-OH vitamin D assays when compared toLC-MS/MS.When testing samples from patients whose predominant form ofVitamin D is Vitamin D2, such as patients receiving VitaminD2 supplementation, results that are subtherapeutic shouldbe confirmed with another method such as LC-MS/MS. 01/29/2023 10:2 1 AM EDT 01/29/2023 11:25 AM EDT us Linette Levy MD LAB BLOOD ORDERAB LES Final Result Performing Organization Address [facility] Co de Phone Number [facility] [address] [place] [phone] * Pap Smear (10/30/2022 2:48 PM EDT) 10/30/2022 2:48 PM EDT 10/31/2022 8:30 AM EDT Narrative [facility] - 11/18/2022 1:18 PM EDT ----- ------- Name: Carla Grant ?Age/Sex: 52/F ? : 1970 Unit#: [id number] ?? Attend Dr: Marilia Julien CNM ?Re10/30/22 ?Status: DEP REF ? Location: HO.LNP ?Disch: ? ----- ------- SPEC : [id number] ? RECD: 10/31/22 ? STATUS: ??SOUT ? REQ NUM: [id number] ? HEMALATHA: 10/30/22-1358 ? SUBM DR: Marilia Julien CNM ? ENTERED: ??10/31/22 ?SP TYPE: Pap Smr ?OTHR DR: Tigist Bartholomew SENIOR AIR DIRECTOR ? ORDERED: ??Pap Smear ? Interpretation ?? Satisfactory for evaluation. ?? Negative for intraepithelial lesion or malignancy. ? HPV mRNA E6/E7: ?NOT DETECTED ? This assay detects E6/E7 viral messenger RNA (mRNA) from 14 high-risk HPV types (16, 18, ?? 31, 33, 35, 39, 45, 51, 52, 56, 58, 59, 66, 68) ? HPV testing performed by [facility], [place], [place]. ??See reference laboratory ?? portion of the EMR for entire report. ?Clinical Information LMP: Unknown date Previous PAP test: 07/15/18, Unknown findings ? Material Received ?? ThinPrep-Vaginal Copies To: ?? Marilia Julien CNM ?? [address] ?? [place] [address] ?? [phone] ?? Tigist Bartholomew SENIOR AIR DIRECTOR ?? [address] [facility] ?? [place] [address] ?? [phone] ----- ------- Signed (signature on file) Sruthi Mondragon Minnie 11/18/22 1318 ? ----- ------- ? END OF REPORT ? us [facility] External Provider LAB CYT OLOGY ORDERABLES Final Result [facility] [address] [place] [address] [phone] * HPV mRNA E6/E7 w/Reflex to HPV Genotypes 16, 18/45 (10/30/2022 2:48 PM EDT) HPV nRNA E6/E7 Not Detected Not Detected [facility] Comment:Methodology: Transcr iption-Mediated AmplificationThis assay detects E6/E7 viral messenger RNA (mRNA) from 14high-risk HPV types (16,18,31,33,35,39,45,51,52,56,58,59,66,68).Cervical sources are required for HPV testing.If a vaginal source from a patient who has had atotal hysterectomy with removal of cervix wassubmitted, please contact the testing laboratoryfor alternative testing options.For additional information, please refer [email or web address]/[email or web address](This link if provided for information/educational purposes only.)THIS TEST WAS PERFORMED AT:[facility] [place] [id number] GATES MD HPV mRNA E6/E7 TNP [facility] HPV 16 RNA TNP [facility] HPV 18/45 RNA [facility] 10/30/2022 2:48 PM EDT 10/31/2022 8:30 AM EDT [facility] External Provider LAB CYT OLOGY ORDERABLES Final Result Performing Organization Address [facility] Co de Phone Number [facility] [address] [place] [phone] * SureSwab?? Advanced Vaginitis, TMA (10/30/2022 1:31 PM EDT) Pathologist [facility] Trichomonas DNA Probe Negative Negative [facility] Gardnerella DNA Probe Negative Negative [facility] Lydia DNA Probe Negative Negative [facility] 10/30/2022 1:31 PM EDT 10/30/2022 3:57 PM EDT Result [facility] Exter nal Provider LAB BODY FLUIDS AND STOOLS ORDERABLES Final Result Performing Organization Address [facility] de Phone Number [facility] [address] [place] [phone] * Chlamydia/N. Gonorrhoeae RNA, TMA, Urogenitial (10/30/2022 1:31 PM EDT) [facility] CT PCR NOT DETECTED Not Detect. [facility] Comment:A not detected test result does not exclude the possibilityof infection because test results can be affected byimproper specimen collection, concurrent antibiotic therapy,or the number of organisms in the specimen which may bebelow the sensitivity of the test. As with many diagnostictests, results from the Xpert CT/NG assay should beinterpreted in conjunction with other laboratory andclinical data available to the clinician.Xpert CT/NG performance has not been evaluated in patientsless than 14 years of age. The assay should not be used forthe evaluationof suspected sexual abuse or for other medico-legalindications. Additional testing is recommended in anycircumstance when false positive or false negative resultscould lead to adverse medical, social or psychologicalconsequences. NG PCR NOT DETECTED Not Detect. [facility] Comment:A not detected test result does not exclude the possibilityof infection because test results can be affected byimproper specimen collection, concurrent antibiotic therapy,or the number of organisms in the specimen which may bebelow the sensitivity of the test. As with many diagnostictests, results from the Xpert CT/NG assay should beinterpreted in conjunction with other laboratory andclinical data available to the clinician.Xpert CT/NG performance has not been evaluated in patientsless than 14 years of age. The assay should not be used forthe evaluationof suspected sexual abuse or for other medico-legalindications. Additional testing is recommended in anycircumstance when false positive or false negative resultscould lead to adverse medical, social or psychologicalconsequences. 10/30/2022 1:31 PM EDT 10/30/2022 3:57 PM EDT [facility] - 10/30/2022 6:41 PM EDT Vaginal [facility] Exter nal Provider LAB MICROBIOLOGY - GENERAL ORDERABLES Final Result Performing Organization Address City/State/[facility] Co de Phone Number [facility] [address] [place] [phone] * Gross and Microscopic Level 3 (09/06/2022 8:06 AM EDT) 09/06/2022 8:06 AM EDT 09/06/2022 8:47 AM EDT [facility] - 09/09/2022 1:59 PM EDT ----- ------- Name: Carla Grant ?Age/Sex: 52/F ? : 1970 Unit#: [id number] ?? Attend Dr: Fili Adorno MD ?Re09/06/22 ?Status: DEP SDC ? Location: HO.SSS ?Disch: ? ----- ------- SPEC : [id number] ? RECD: 09/06/22 ? STATUS: ??SOUT ? REQ NUM: [id number] ? HEMALATHA: 09/06/22 ? SUBM DR: Fili Adorno MD ? ENTERED: ??09/06/22 ?SP TYPE: Surgical ? OTHR DR: Tigist Bartholomew SENIOR AIR DIRECTOR ? ORDERED: ??Gross Micro L3 ? Diagnosis ?? Omentum (umbilical hernia repair): ??Fibromembranous and vascular adipose tissue, ?? consistent with omentum. ?Clinical History Umbilical hernia ?Microscopic Description Microscopic sections reviewed. ? Material Received ?? Omentum ? Gross Description Received in formalin labeled omentum is a 4.5 x 0.5-2.0 x 0.5-1.0 cm sheet of talley- yellow lobular adipose tissue with scant attached cauterize valencia-pink fibromembranous tissue. Sectioning reveals homogeneous talley-yellow lobular fat with scant attached valencia-pink and pink-red fibrous versus fibromembranous tissue. ??No fleshy, hemorrhagic or necrotic foci are identified. ??No lymph nodes are identified. ??Area Field Person sections are submitted in a single cassette labeled A1. CEDS Copies To: ?? Tigist Bartholomew SENIOR AIR DIRECTOR ?? [address] [facility] ?? [place] [address] ?? [phone] ?? Fili Adorno MD ?? [address] [facility] 3rd [address] ?? [place] [address] ?? [phone] ?? [email or web address] ----- ------- Signed (signature on file) Kailey Evans 09/09/22 8425 ? ----- ------- ? END OF REPORT ? [facility] External Provider LAB CYT OLOGY ORDERABLES Final Result Performing Organization Address [facility] Co de Phone Number [facility] [address] [place] [phone] * Creatinine, Serum (07/17/2022 3:18 PM EST) Creatinine, Serum 0.90 0.5 - 1.4 mg/dL [facility] Estimated Glomerular Filt Rate >60 [facility] Comment:NOTE: For -Am erican individuals, multiply the result by 1.210.Chronic Kidney Disease: Estimated GFR < 60 mL/min/1.98o7Zvljco Kidney Disease: Estimated GFR < 15 mL/min/1.73m2 07/17/2022 3:18 PM EST 07/17/2022 3:18 PM EST [facility] External Provider LAB BLO OD ORDERABLES Final Result Performing Organization Address [facility] Co de Phone Number [facility] [address] [place] [phone] * BUN (Blood Urea Nitrogen) (07/17/2022 3:18 PM EST) Urea Nitrogen (BUN) 11 9 - 16 mg/dL [facility] 07/17/2022 3:18 PM EST 07/17/2022 3:18 PM EST [facility] External Provider LAB BLO OD ORDERABLES Final Result Performing Organization Address [facility] Co de Phone Number [facility] [address] [place] [phone] documented in this encounter Visit Diagnoses Not on filedocumented in this encounter Additional Health Concerns Assessment Noted Time PHQ-9 Depression Total Score: 0 06/13/19 23 10:39 AM EST documented as of this encounter Care Teams Electric Shovel Operator Relationship Specialty Start Date End Date Tigist Bartholomew FNP PCP - General Family Medicine 12/09/21 12/05/22 Linette Ventura MD [address] [place] [address] PCP - General Internal Medicine 12/06/22 Justin Rojo FNP [address] [place] [address] Nurse Practitioner Family Medicine 05/05/23 documented as of this encounter
--- OUTSIDE RECORDS SUMMARY | 2024-08-18 11:43 | XMS_ITS | Encounter Summary ---
Author Organization [employer] Address [address] [facility] 7t [place] [address] Care Team Providers Care Retirement Assistant Name Role Phone Tigist Bartholomew Primary Care Provider +[phone]- [phone] Linette Ventura MD Primary Care Pro vider Justin Rojo Unavailable Unavailable Reason for Visit * Reason Onset Date Comments Referral 10/29/2022 Encounter Details Date Type Department Care Team (Late st Contact Info) Description 10/29/2022 Telephone [facility] MEDICINE [address] [place], [place] [phone] Tigist Bartholomew FNP [address] [place] [address] Dept [place] [address] Referral Social History Tobacco Use Types Packs/Day Years Used Date Smoking Tobacco: Never Assessed Comments Unknown Sex and Gender Information Value Date Recorded Sex Assigned at Female 04/01/2022 10:17 AM EDT Legal Sex Female 10:17 AM EDT Gender Identity Female 04/01/2022 10:17 AM EDT Sexual Orientation Straight 01/22/2023 10 :52 AM EDT documented as of this encounter Miscellaneous Notes * Telephone Encounter - Shani Michelnez - 10/29/2022 2:02 PM EDT Tc from patient requesting a referral for Dr. Ott for weight loss (by pass/bariatric surgery). Patient states Dr. Ott is now in [facility] and would like to be referred to him. Patient has no other details or phone number, underwriter mortgage loan attempted to get information and was unable to. documented in this encounter Plan of Treatment Upcoming Encounters Date Type Department Care Team (Late st Contact Info) Description 08/25/2024 10:30 AM EDT Office Visit [facility] CHC ADULT DENTAL [address] [facility], [place] [phone] Kailey Allan DDS [address] [place] [address] 09/14/2024 10:00 AM EDT Office Visit [facility] MEDICINE [address] [place] [address] Linette Ventura MD [address] [place] [address] documented as of this encounter Visit Diagnoses Not on filedocumented in this encounter Additional Health Concerns Assessment Noted Time PHQ-9 Depression Total Score: 0 08/23/19 10:03 AM EDT documented as of this encounter Care Teams Retirement Assistant Relationship Specialty Start Date End Date Tigist Bartholomew FNP PCP - General Family Medicine 12/09/21 12/05/22 Linette Ventura MD [address] [place] [phone] PCP - General Internal Medicine 12/06/22 Justin Rojo FNP [address] [place] [address] Nurse Practitioner Family Medicine 05/05/23 documented as of this encounter
--- OUTSIDE RECORDS SUMMARY | 2024-08-18 11:43 | XMS_ITS | Encounter Summary ---
Author Organization [employer] Address [address]t [place] [address] Care Team Providers Care Culinary Worker Name Role Phone Linette Ventura MD Primary Care Pro vider Justin Rjoo Unavailable Unavailable Reason for Visit * Reason Comments Med Refill Encounter Details Date Type Department Care Team (Late st Contact Info) Description 08/05/2024 Refill [facility] MEDICINE [address] [place], [place] [phone] Melanie Zacarias MD [address] [place], [place] [phone] Anxiety and depression Social History Tobacco Use [...] your housing situation today? I have gibran english 03/19/[address] you [...] 10:30 AM EDT Office Visit [facility] CHC ADULT DENTAL [address] [place] [address] Kailey Allan DDS [address] [place] [phone] 09/14/2024 10:00 AM EDT Office Visit [facility] MEDICINE [address] [place] [phone] Linette Ventura MD [address] [place] [phone] documented as of this encounter Visit Diagnoses Diagnosis Anxiety and depression documented in this encounter Additional Health Concerns Assessment Noted Time PHQ-9 Depression Total Score: 0 01/27/20 24 10:46 AM EDT documented as of this encounter Care Teams Culinary Worker Relationship Specialty Start Date End Date Linette Ventura MD [address] [place] [phone] PCP - General Internal Medicine 12/06/22 Justin Rojo FNP [address] [place] [phone] Nurse Practitioner Family Medicine 05/05/23 documented as of this encounter
--- OUTSIDE RECORDS SUMMARY | 2024-08-18 11:43 | XMS_ITS | Encounter Summary ---
Author Organization [employer] Address [address] [facility] 7t [place] [address] Care Team Providers Care Guide Name Role Phone Linette Ventura MD Primary Care Pro vider Justin Rojo Unavailable Unavailable Reason for Visit * Reason Comments Med Refill Encounter Details Date Type Department Care Team (Late st Contact Info) Description 06/26/2023 Refill [facility] MEDICINE [address] [place], [place] [phone] Linette Ventura MD [address] [place], [place] [phone] Fungus infection Social History Tobacco Use Types Packs/Day Years [...] Description 08/25/2024 10:30 AM EDT Office Visit [facility] CHC ADULT DENTAL [address] [place] [address] Kailey Allan DDS [address] [place] [address] 09/14/2024 10:00 AM EDT Office Visit [facility] MEDICINE [address] [place] [phone] Linette Ventura MD [address] [place] [address] documented as of this encounter Visit Diagnoses Diagnosis Fungus infection Other and unspecified mycoses documented in this encounter Additional Health Concerns Assessment Noted Time PHQ-9 Depression Total Score: 0 05/15/20 9:10 AM EST documented as of this encounter Care Teams Guide Relationship Specialty Start Date End Date Linette Ventura MD [address] [place] [address] PCP - General Internal Medicine 12/06/22 Justin Rojo FNP [address] [place] [address] Nurse Practitioner Family Medicine 05/05/23 documented as of this encounter
--- OUTSIDE RECORDS SUMMARY | 2024-08-18 11:43 | XMS_ITS | Encounter Summary ---
Author Organization [employer] Address [address] [facility] 7t [place] [address] Care Team Providers Care Obiee Lead Developer Name Role Phone Linette Ventura MD Primary Care Pro vider Justin Rojo Unavailable Unavailable Reason for Visit * Reason Comments Med Refill Encounter Details Date Type Department Care Team (Late st Contact Info) Description 06/15/2023 Refill [facility] MEDICINE [address] [place], [place] [phone] Linette Ventura MD [address] [place], [place] [phone] Social History Tobacco Use Types Packs/Day Years [...] Description 08/25/2024 10:30 AM EDT Office Visit [facility] CHC ADULT DENTAL [address] [place] [address] Kailey Allan DDS [address] [place] [phone] 09/14/2024 10:00 AM EDT Office Visit [facility] MEDICINE [address] [place] [phone] Linette Ventura MD [address] [place] [address] documented as of this encounter Visit Diagnoses Not on filedocumented in this encounter Additional Health Concerns Assessment Noted Time PHQ-9 Depression Total Score: 0 05/15/20 9:10 AM EST documented as of this encounter Care Teams Obiee Lead Developer Relationship Specialty Start Date End Date Linette Ventura MD [address] [place] [phone] PCP - General Internal Medicine 12/06/22 Justin Rojo FNP [address] [place] [address] Nurse Practitioner Family Medicine 05/05/23 documented as of this encounter
--- OUTSIDE RECORDS SUMMARY | 2024-08-18 11:43 | XMS_ITS | Encounter Summary ---
Author Organization [employer] Address [address] [facility] 7t [place] [address] Care Team Providers Care Numerical Control Nesting Operator Name Role Phone Linette Ventura MD Primary Care Pro vider Justin Rojo Unavailable Unavailable Encounter Details Date Type Department Care Team (Late st Contact Info) Description 08/13/2024 Population Health Risk Score [email or web address] Care [facility] (C[facility]) Department [address] [facility] [address] [place] [phone] Provider, Population Health Generic Social History Tobacco Use Types Packs/Day Years [...] Description 08/25/2024 10:30 AM EDT Office Visit [facility] ADULT DENTAL [address] [place] [address] Kailey Allan DDS [address] [place] [phone] 09/14/2024 10:00 AM EDT Office Visit [facility] MED[facility] [address] [place] [address] Linette Ventura MD [address] [place] [address] documented as of this encounter Visit Diagnoses Not on filedocumented in this encounter Additional Health Concerns Assessment Noted Time PHQ-9 Depression Total Score: 0 01/27/20 24 10:46 AM EDT documented as of this encounter Care Teams Numerical Control Nesting Operator Relationship Specialty Start Date End Date Linette Ventura MD [address] [place] [address] PCP - General Internal Medicine 12/06/22 Justin Rojo FNP [address] [place] [address] Nurse Practitioner Family Medicine 05/05/23 documented as of this encounter
--- OUTSIDE RECORDS SUMMARY | 2024-08-18 11:43 | XMS_ITS | Encounter Summary ---
Author Organization [employer] Address [address] [facility] [address] 7[address] [place] [address] Care Team Providers Care Sandfill Operator Surface Name Role Phone Linette Ventura MD Primary Care Pro vider Justin Rojo Unavailable Unavailable Encounter Details Date Type Department Care Team (Late st Contact Info) Description 11/03/2023 Orders Only [facility] MEDICINE [address] [place] [address] Provider, MD Jared Social History Tobacco Use Types Packs/Day Years Used Date Smoking Tobacco: Never Passive Smoke Exposure: Never Smokeless Tobacco: Never Alcohol Use Standard Drinks/Week Comments Yes 0 (1 standard drink = 0.6 oz pur e alcohol) social Depression Answer Date Recorded Patient Health Questionnaire-9 Score 0 11/03/2023 Patient Health Questionnaire-9 Score 0 11/03/2023 Last PHQ-9: Questionnaire Data Not on file 0 11/03/2023 Housing Stability Answer Date Recorded What is [...] Date Recorded Patient Health Questionnaire-2 Score 0 11/03/2023 Comments Unknown Sex and Gender Information Value [...] Description 08/25/2024 10:30 AM EDT Office Visit [facility] ADULT DENTAL [address] [place] [address] Kailey Allan DDS [address] [place] [address] 09/14/2024 10:00 AM EDT Office Visit [facility] MED[facility]INE [address] [place] [address] Linette Ventura MD [address] [place] [address] documented as of this encounter Procedures Procedure Name Priority Date/Time Associated Diagnosis Comments BI MAMMOGRAM DIAGNOSTIC TOMOSYNTHESIS RIGHT Routine 11/05/2023 11:38 AM EDT HM COLONOSCOPY Routine 08/25/2019 12:29 PM EDT documented in this encounter Results * BI Mammogram Diagnostic Tomosynthesis Right (11/05/2023 11:38 AM EDT) Anatomical Region Laterality Modality Breast Right Mammography 11/05/2023 11:3 8 AM EDT Narrative 11/05/2023 12:24 PM EDT ? [facility] ? [address] ?[place] [address] ? Mammography Report ? Signed ? Patient: Grant,Carla ?MR#: [id number] ?? [id number] ? : 1970 ?Acct:[id number] ? Age/Sex: 53 / F ?ADM Date: 11/05/23 ? Loc: HO.MAMMO ? Attending Dr: Linette Levy MD ? Ordering Physician: Linette Ventura MD ?Results: 3.6MProbably Benign Finding - Short 6 M ?? F/U Suggested ? Date of Service: 11/05/23 ?Follow Up: 6 Month F/U ? Procedure(s): MM tomosynthesis diagnostic RT ?? Accession Number(s): [id number] ? cc: Linette Ventura MD ? EXAMINATION: [...] 1221 ? DD/ 1138 ? TD/TT: ? Rehab Specialist: ? Procedure Note Angel, Image - 11/05/2023 [facility] [address] [place] [address] Dr. [place], [place] [address] Mammography Report Signed Patient: Carla Grant#: [id number] : 1970Acct:[id number] Age/Sex: 53 / FADM Date: 11/05/23 Loc: LYNDSAYO Attending Dr: Linette Levy MD Ordering Physician: Linette Ventura MD Results: 3.6MProbably Benign Finding - Short 6 M F/U Suggested Date of Service: 11/05/23Follow Up: 6 Month F/U Procedure(s): MM tomosynthesis diagnostic RT Accession Number(s): [id number] cc: Linette Ventura MD EXAMINATION: MM DIAGNOSTIC [...] in OV> 11/05/23 1221 DD/ 1138 TD/TT: Rehab Specialist: us Linette Levy MD IMG BI PROCEDURES Final Result * Hm Colonoscopy (08/25/2019 12:29 PM EDT) us Historical Provider HEALTH MAINTENANCE Final Result documented in this encounter Visit Diagnoses Not on filedocumented in this encounter Additional Health Concerns Assessment Noted Time PHQ-9 Depression Total Score: 0 11/03/19 24 9:02 AM EDT documented as of this encounter Care Teams Sandfill Operator Surface Relationship Specialty Start Date End Date Linette Ventura MD [address] [place], [place] [phone] PCP - General Internal Medicine 12/06/22 Justin Rojo FNP [address] [place] [address] Nurse Practitioner Family Medicine 05/05/23 documented as of this encounter
== END 2024-08-18 10:59 | disposition home or self-care (01) ==
LOC: HO.HCS 10:07
PROVIDERS: PCP Student in an Organized Health Care Education/Training Program; Visit Provider Internal Medicine Cardiovascular Disease
DX: R00.2 Palpitations (principal); R55 Syncope and collapse
CPT/HCPCS: 93010; 99204

== ENCOUNTER 2024-08-18 13:00 | Outpatient (REF) | payer MEDICAID, SELFPAY ==
--- NOTE | ~2024-08-18 | MM_ITS ---
EXAMINATION: MM DIAGNOSTIC DIGITAL BREAST TOMOSYNTHESIS, BILATERAL CLINICAL INFORMATION: 18 month follow-up for calcifications in the right breast. COMPARISON: Mammography: Comparison is made with relevant prior exams. TECHNIQUE: Digital breast mammography with tomosynthesis is performed in both the craniocaudal and mediolateral oblique views along with computer-aided detection (CAD). FINDINGS: There are scattered areas of fibroglandular density (ACR BI-RADS breast composition Category b). Left: There are no significant masses, abnormal calcifications, or other abnormalities. Right: Coarse and punctate calcifications in the retroareolar region of the right breast are not significantly changed on magnification views dating back to April 2023. No suspicious masses or other abnormal findings. Results are provided to the patient at time of visit by the technologist. MM/MM tomosynthesis diagnostic BI IMPRESSION: Left: Negative. Right: Grouped calcifications in the retroareolar region are not significant change from priors dating back for April 2023. Recommend diagnostic mammography in one year when the patient is due for bilateral mammogram to demonstrate 2 years of stability. ASSESSMENT: BI-RADS BI-RADS 3 - Probably benign finding(s) - 12 month follow-up suggested RECOMMENDATION: 12 month diagnostic follow up This patient's information was entered into a reminder system with a target due date for their next mammogram. Electronically signed by: Tati Suárez DO 08/18/2024 02:05 PM EDT
== END 2024-08-18 13:01 | disposition home or self-care (01) ==
LOC: HO.MAMMO 13:00
PROVIDERS: PCP Student in an Organized Health Care Education/Training Program; Visit Provider Student in an Organized Health Care Education/Training Program
DX: R92.1 Mammographic calcification found on diagnostic imaging of breast (principal); R00.2 Palpitations; R55 Syncope and collapse
CPT/HCPCS: 77062; 77066; 93005; 99202

== ENCOUNTER → 2024-08-18 13:30 | Outpatient (BNV) | payer MEDICAID, SELFPAY | PROVIDERS: PCP Student in an Organized Health Care Education/Training Program; Visit Provider Internal Medicine | DX: R92.1 Mammographic calcification found on diagnostic imaging of breast (principal) | CPT/HCPCS: 77062; 77066 ==

== ENCOUNTER → 2024-09-09 09:54 | Outpatient (REF) | payer MEDICAID, SELFPAY ==
--- NOTE | 2024-09-09 09:57 | CA_ITS ---
Transthoracic Echocardiogram Patient (Last, First, Middle): Carla Grant, Gender: Female Date of : 1970 Age: 54 Procedure Date: 09/09/2024 Procedure Type: Transthoracic Echocardiogram Location: OP Height: 154.94 cm Weight: 84.82 kg BSA: 1.84 m2 Heart Rate: bpm BP: 128 / 68 mmHg Resin Coater: HONEY Referring MD: Anderson Zamora MD Professor Of Kinesiology: Anderson Zamora MD Symptoms: R00.2 - Palpitations Study Quality: Adequate ECG Rhythm: Sinus Conclusions: - Essentially normal study with mildly enlarged thoracic aorta at 3.8 cm Findings Left Ventricle Normal left ventricular size, thickness, and systolic function. The visually estimated ejection fraction is between 65-70%. Spectral Doppler is indicative of a normal filling pattern. Right Ventricle Normal right ventricular cavity size and systolic function. Atria Both atria are normal in size. There is no evidence of interatrial shunt. Aortic Valve Normal aortic valve structure and function. There is no aortic valve stenosis. There is no aortic valve regurgitation. Mitral Valve Normal mitral valve structure and function. There is trace mitral valve regurgitation. There is no mitral valve stenosis. Pulmonic Valve The pulmonic valve is likely normal. There is trace pulmonic valve regurgitation. Tricuspid Valve Normal tricuspid valve structure. Tricuspid regurgitation envelope is inadequate for calculation of right ventricular systolic pressure. Normal right atrial pressure. Great Vessels The pulmonary artery was not well visualized. There is mild dilatation of the ascending aorta measuring 3.80 cm. Venous The inferior vena cava is normal in size and collapses greater than 50% with inspiration. Pericardium/Pleural There is no evidence of pericardial effusion. Prior Study Comparison No prior study available for comparison. Measurements 2D Linear Measurements IVSd: 0.82 0.6-0.9/0.6-1.0 cm LVIDd: 4.35 3.9-5.3/4.2-5.9 cm LVIDd Index: 2.36 2.4-3.2/2.2-3.1 cm/m2 LVIDs: 2.79 2.0-3.6 cm LVPWd: 0.75 0.7-1.1 cm LA Diam: 3.40 2.7-3.8/3.0-4.0 cm LAIDs Index: 1.85 1.5-2.3 cm/m2 LV Mass: 129.19 67-162/88-224 g LV Mass Index: 70.21 43-95/49-115 g/m2 LVOT Diam: 2.10 3.0+(-)1.3 cm 2D Systolic Function EF 4C: 66.30 >55% EF 2C: 68.30 >55% EF BiP: 67.50 >55% Mitral Valve MV Pk E: 0.72 MV PK A: 0.61 MV Decel Time: 329.00 E/A: 1.20 E'Lateral: 13.50 E'Medial: 13.30 E/E' Med: 5.40 E/E' Lat: 5.30 PHT: 96.00 MVA PHT: 2.29 Decel Thomas: 2.19 Aortic Valve AoV Pk Sachin: 1.49 AoV Mn Sachin: 0.99 AoV VTI: 0.32 AoV Pk Grad: 9.00 Aov Mn Grad: 5.00 DELORES Cont.VTI: 2.68 LVOT LVOT Pk Sachin: 1.30 LVOT Mn Sachin: 0.84 LVOT VTI: 0.24 LVOT Pk Grad: 7.00 LVOT Mn Grad: 3.00 LVOT Diam: 2.10 LVOT Area: 3.46 Diastolic Function MV Pk E: 0.72 MV Pk A: 0.61 E/A: 1.20 E'Medial: 13.30 E/E' Med: 5.40 E' Laterial: 13.50 E/E' Lat: 5.30 Right Ventricle TAPSE (mm): 29.50 TVS' Sachin: 14.00 Tricuspid Valve RA Press: 3.00 Great Vessels Aorta Sinus of Valsalva: 3.35 2.0-3.[address] Ridge: 2.53 1.7-3.4 cm Ao Asc: 3.80 2.1-3.4 cm Updated in Other Vendor System with Status of Final Anderson Zamora MD electronically signed on 09/09/2024 4:45:23 PM with status of Final
--- OUTSIDE RECORDS SUMMARY | 2024-09-09 11:21 | XMS_ITS | Encounter Summary ---
Author Organization [employer] Address 75 [facility] 7t [place] [address] Care Team Providers Care Marine Electronics Repairer Name Role Phone Tigist Bartholomew Lina ACADEMIC COUNSELOR Primary Care Provider [phone] Linette Ventura MD Primary Care Pro vider Justin Rojo ACADEMIC COUNSELOR Unavailable Unavailable Encounter Details Date Type Department Care Team (Late st Contact Info) Description 07/03/2022 Orders Only [facility] [address] [place] [phone] Carly Hollingsworth LPN Social History Tobacco Use [...] Care Team (Late st Contact Info) Description 09/14/2024 10:00 AM EDT Office Visit [facility] [address] [place] [address] Linette Ventura MD [address] [place] [address] 09/22/2024 10:00 AM EDT Office Visit [facility] ADULT DENTAL [address] [facility] [place] [address] Kailey Allan, DDS [address] [place] [address] documented as of this encounter Procedures Procedure Name Priority Date/Time Associated Diagnosis Comments HEPATITIS C ANTIBODY REFLEX Routine 01/29/2023 10:21 AM EDT HIV ANTIBODY/ANTIGEN ([place] [facility]) Routine 01/29/2023 10:21 AM EDT VITAMIN [...] antigen, EIA (01/29/2023 10:21 AM EDT) Pathologist [facility] Hepatitis B Surface Ag Negative Negative [facility] 01/29/2023 10:2 1 AM EDT 01/29/2023 11:25 AM EDT us Linette Levy MD LAB BLOOD ORDERAB LES Final Result Performing Organization Address City/[facility]/ZIP Co de Phone Number [facility] [address] [place] [address] [phone] * HIV Ab/Ag ([facility]) (01/29/2023 10:21 AM EDT) [facility] HIV AB/AG Nonreactive Nonreactive [facility] Comment:HIV-1 p24 Ag and/or HIV-1/HIV-2 Ab not detected.A test result that is nonreactive does not exclude thepossibility of exposure to or infection with HIV-1 and/orHIV-2. Nonreactive results in this assay for individualswith prior exposure to HIV-1 and/or HIV-2 may be due toantigen and antibody levels that are below the limit ofdetection of this assay.The [facility] HIV Ag/Ab Combo assay result andsupplemental assay results should be interpreted inconjunction with the patient's clinical presentation,history and other laboratory results. If the results areinconsistent with clinical evidence, additional testing issuggested to confirm the result. 01/29/2023 10:2 1 AM EDT 01/29/2023 11:25 AM EDT us Linette Levy MD LAB BLOOD ORDERAB LES Final Result Performing Organization Address [facility]/ZIP Co de Phone Number [facility] [address] [place] [address] [phone] * Hepatitis C Antibody Reflex (01/29/2023 10:21 AM EDT) Hepatitis C Antibody Nonreactive Nonreactive [facility] Comment:Antibodies to HCV no t detected; does not exclude early acuteHCV infection. 01/29/2023 10:2 1 AM EDT 01/29/2023 11:25 AM EDT Linette Levy MD LAB BLOOD ORDERAB LES Final Result Performing Organization Address [facility]/ZIP Co de Phone Number [facility] [address] [place] [phone] * Vitamin D, 25-Hydroxy, Total, Immunoassay (01/29/2023 10:21 AM EDT) Pathologist [facility] Vitamin D 25-OH Total 16.4 >30 ng/mL [facility] Comment:Health Based Referen ce Values*< 20 ng/mL Eakvixexe16-51 ng/mL Insufficient> 30 ng/mL Sufficient*Merissa OQUENDO. N [...] ORDERAB LES Final Result Performing Organization Address [facility] Co de Phone Number [facility] [address] [place] [phone] * Pap Smear (10/30/2022 2:48 PM EDT) 10/30/2022 2:48 PM EDT 10/31/2022 8:30 AM EDT Narrative [facility] - 11/18/2022 1:18 PM EDT ----- ------- Name: Carla Grant ?Age/Sex: 52/F ? : 1970 Unit#: [id number] ?? Attend Dr: Marilia Julien CNM ?Re10/30/22 ?Status: DEP REF ? Location: HO.LNP ?Disch: ? ----- ------- SPEC : [id number] ? RECD: 10/31/22 ? STATUS: ??SOUT ? REQ NUM: [id number] ? HEMALATHA: 10/30/22-4218 ? SUBM DR: Marilia Julien CNM ? ENTERED: ??10/31/22 ?SP TYPE: Pap Smr ?OTHR DR: Tigist Bartholomew ACADEMIC COUNSELOR ? ORDERED: ??Pap Smear ? Interpretation ?? Satisfactory for evaluation. ?? Negative for intraepithelial lesion or malignancy. ? HPV mRNA E6/E7: ?NOT DETECTED ? This assay detects E6/E7 viral messenger RNA (mRNA) from 14 high-risk HPV types (16, 18, ?? 31, 33, 35, 39, 45, 51, 52, 56, 58, 59, 66, 68) ? HPV testing performed by [facility], [place], [place]. ??See reference laboratory ?? portion of the EMR for entire report. ?Clinical Information LMP: Unknown date Previous PAP test: 07/15/18, Unknown findings ? Material Received ?? ThinPrep-Vaginal Copies To: ?? Marilia Julien CNM ?? [address] [facility] ?? [place] [address] ?? [phone] ?? Tigist Bartholomew ACADEMIC COUNSELOR ?? [address] [facility] ?? [place] [address] ?? [phone] ----- ------- Signed (signature on file) Sruthi Mondragon Minnie 11/18/22 1318 ? ----- ------- ? END OF REPORT ? us [facility] External Provider LAB CYT OLOGY ORDERABLES Final Result [facility] [address] [place] [phone] [phone] * HPV mRNA E6/E7 w/Reflex to HPV Genotypes 16, 18/45 (10/30/2022 2:48 PM EDT) HPV nRNA E6/E7 Not Detected Not Detected [facility] Comment:Methodology: Transcr iption-Mediated AmplificationThis assay detects E6/E7 viral messenger RNA (mRNA) from 14high-risk HPV types (16,18,31,33,35,39,45,51,52,56,58,59,66,68).Cervical sources are required for HPV testing.If a vaginal source from a patient who has had atotal hysterectomy with removal of cervix wassubmitted, please contact the testing laboratoryfor alternative testing options.For additional information, please refer tohttp://education.GroupF[employer]/faq/HQR063k1(This link if provided for information/educational purposes only.)THIS TEST WAS PERFORMED AT[facility] [employer] [place] [id number] GATES MD HPV mRNA E6/E7 TNP [facility] HPV 16 RNA TNP [facility] HPV 18/45 RNA [facility] 10/30/2022 2:48 PM EDT 10/31/2022 8:30 AM EDT [facility] External Provider LAB CYT OLOGY ORDERABLES Final Result Performing Organization Address [facility] Co de Phone Number [facility] [address] [place] [phone] * SureSwab?? Advanced Vaginitis, TMA (10/30/2022 1:31 PM EDT) Pathologist [facility] Trichomonas DNA Probe Negative Negative [facility] Gardnerella DNA Probe Negative Negative [facility] Lydia DNA Probe Negative Negative [facility] 10/30/2022 1:31 PM EDT 10/30/2022 3:57 PM EDT Result [facility] Exter nal Provider LAB BODY FLUIDS AND STOOLS ORDERABLES Final Result Performing Organization Address [facility] de Phone Number [facility] [address] [place] [phone] * Chlamydia/N. Gonorrhoeae RNA, TMA, Urogenitial (10/30/2022 1:31 PM EDT) [facility] CT PCR NOT DETECTED Not Detect. [facility] Comment:A not detected test result does [...] psychologicalconsequences. NG PCR NOT DETECTED Not Detect. [facility] Comment:A not detected test result does [...] 1:31 PM EDT 10/30/2022 3:57 PM EDT [facility] - 10/30/2022 6:41 PM EDT Vaginal [facility] Exter nal Provider LAB MICROBIOLOGY - GENERAL ORDERABLES Final Result Performing Organization Address City/State/[facility] Co de Phone Number [facility] [address] [place] [phone] * Gross and Microscopic Level 3 (09/06/2022 8:06 AM EDT) 09/06/2022 8:06 AM EDT 09/06/2022 8:47 AM EDT [facility] - 09/09/2022 1:59 PM EDT ----- ------- Name: Carla Grant ?Age/Sex: 52/F ? : 1970 Unit#: [id number] ?? Attend Dr: Fili Adorno MD ?Re09/06/22 ?Status: DEP SDC ? Location: HO.SSS ?Disch: ? ----- ------- SPEC : [id number] ? RECD: 09/06/22 ? STATUS: ??SOUT ? REQ NUM: [id number] ? HEMALATHA: 09/06/22 ? SUBM DR: Fili Adorno MD ? ENTERED: ??09/06/22 ?SP TYPE: Surgical ? OTHR DR: Tigist Bartholomew ACADEMIC COUNSELOR ? ORDERED: ??Gross Micro L3 ? Diagnosis [...] are identified. ??No lymph nodes are identified. ??Cmo & President sections are submitted in a single cassette labeled A1. CEDS Copies To: ?? Tigist Bartholomew ACADEMIC COUNSELOR ?? [address] [facility] ?? [place] [address] ?? [phone] ?? Fili Adorno MD ?? [address] [facility] ?? [place] [address] ?? [phone] ?? [email or web address] ----- ------- Signed (signature on file) Kailey Evans 09/09/22 3894 ? ----- ------- ? END OF REPORT ? [facility] External Provider LAB CYT OLOGY ORDERABLES Final Result Performing Organization Address [facility] Co de Phone Number [facility] [address] [place] [phone] * Creatinine, Serum (07/17/2022 3:18 PM EST) Creatinine, Serum 0.90 0.5 - 1.4 mg/dL [facility] Estimated Glomerular Filt Rate >60 [facility] Comment:NOTE: For -Am erican individuals, multiply the result by 1.210.Chronic Kidney Disease: Estimated GFR < 60 mL/min/1.93n3Lbtzcs Kidney Disease: Estimated GFR < 15 mL/min/1.73m2 07/17/2022 3:18 PM EST 07/17/2022 3:18 PM EST [facility] External Provider LAB BLO OD ORDERABLES Final Result Performing Organization Address [facility] Co de Phone Number [facility] [address] [place] [phone] * BUN (Blood Urea Nitrogen) (07/17/2022 3:18 PM EST) Urea Nitrogen (BUN) 11 9 - 16 mg/dL [facility] 07/17/2022 3:18 PM EST 07/17/2022 3:18 PM EST [facility] External Provider LAB BLO OD ORDERABLES Final Result Performing Organization Address [facility] Co de Phone Number [facility] [address] [place] [phone] documented in this encounter Visit Diagnoses Not on filedocumented in this encounter Additional Health Concerns Assessment Noted Time PHQ-9 Depression Total Score: 0 06/13/19 23 10:39 AM EST documented as of this encounter Care Teams Marine Electronics Repairer Relationship Specialty Start Date End Date Tigist Bartholomew FNP PCP - General Family Medicine 12/09/21 12/05/22 Linette Ventura MD [address] [place] [address] PCP - General Internal Medicine 12/06/22 Justin Rojo FNP [address] [place] [address] Nurse Practitioner Family Medicine 05/05/23 documented as of this encounter
--- OUTSIDE RECORDS SUMMARY | 2024-09-09 11:21 | XMS_ITS | Encounter Summary ---
Author Organization [employer] Address [address] [facility] [address] [place] [address] Care Team Providers Care Dry Cleaner Apprentice Name Role Phone Tigist Bartholomew BABATUNDE Primary Care Provider [phone] Linette Ventura MD Primary Care Pro vider Justin Rojo Unavailable Unavailable Reason for Visit * Reason Comments Med Refill Encounter Details Date Type Department Care Team (Late st Contact Info) Description 07/03/2022 Refill [facility] [address] [place] [address] Justin Rojo FNP Anxiety and depression (Primary [...] Description 09/14/2024 10:00 AM EDT Office Visit [facility] [address] [place] [address] Linette Ventura MD [address] [place] [address] 09/22/2024 10:00 AM EDT Office Visit [facility] ADULT DENTAL [address] [place] [address] Kailey Allan DDS [address] [place] [address] documented as of this encounter Visit Diagnoses Diagnosis Anxiety and depression- Primary documented in this encounter Additional Health Concerns Assessment Noted Time PHQ-9 Depression Total Score: 0 06/13/19 10:39 AM EST documented as of this encounter Care Teams Dry Cleaner Apprentice Relationship Specialty Start Date End Date Tigist Bartholomew FNP PCP - General Family Medicine 12/09/21 12/05/22 Linette Ventura MD [address] [place] [phone] PCP - General Internal Medicine 12/06/22 Justin Rojo FNP [address] [place] [phone] Nurse Practitioner Family Medicine 05/05/23 documented as of this encounter
--- OUTSIDE RECORDS SUMMARY | 2024-09-09 11:21 | XMS_ITS | Encounter Summary ---
Author Organization [employer] Address 75 [facility] 7t [place] [address] Care Team Providers Care Map Mounter Name Role Phone Tigist Bartholomew Primary Care Provider +1- [phone] Linette Ventura MD Primary Care Pro vider Justin Rojo Unavailable Unavailable Reason for Visit * Reason Onset Date Comments Referral 10/29/2022 Encounter Details Date Type Department Care Team (Late st Contact Info) Description 10/29/2022 Telephone [facility] MEDICINE [address] [place], [place] [phone] Tigist Bartholomew FNP [address] [place] [address] Dept [place] [address] Referral Social History Tobacco Use Types Packs/Day [...] Patient states Dr. Ott is now in [facility] and would like to be referred to him. Patient has no other details or phone number, blurb writer attempted to get information and was unable to. documented in this encounter Plan of Treatment Upcoming Encounters Date Type Department Care Team (Late st Contact Info) Description 09/14/2024 10:00 AM EDT Office Visit [facility] MEDICINE 230 [place] [address] Linette Ventura MD 230 [place] [address] 09/22/2024 10:00 AM EDT Office Visit [facility] CH[facility] ADULT DENTAL [address] [place], [place] [phone] Kailey Allan DDS 230 [place] [address] documented as of this encounter Visit Diagnoses Not on filedocumented in this encounter Additional Health Concerns Assessment Noted Time PHQ-9 Depression Total Score: 0 08/23/19 10:03 AM EDT documented as of this encounter Care Teams Map Mounter Relationship Specialty Start Date End Date Tigist Bartholomew FNP PCP - General Family Medicine 12/09/21 12/05/22 Linette Ventura MD [address] [place] [phone] PCP - General Internal Medicine 12/06/22 Justin Rojo FNP [address] [place] [phone] Nurse Practitioner Family Medicine 05/05/23 documented as of this encounter
--- OUTSIDE RECORDS SUMMARY | 2024-09-09 11:21 | XMS_ITS | Encounter Summary ---
Author Organization [employer] Address [address] [facility] [address] 7t [place] [address] Care Team Providers Care Bilingual Branch Manager Name Role Phone Linette Ventura MD Primary Care Pro vider Justin Rojo Unavailable Unavailable Reason for Visit * Reason Comments Med Change Request Encounter Details Date Type Department Care Team (Late st Contact Info) Description 01/30/2024 Refill [facility] MED & PEDS [address] [place] [address] Linette Ventura MD 230 [place] [address] Anxiety and depression Social History Tobacco Use [...] Description 09/14/2024 10:00 AM EDT Office Visit [facility] MED[facility]INE [address] [place] [phone] Linette Ventura MD [address] [place] [address] 09/22/2024 10:00 AM EDT Office Visit [facility] ADULT DENTAL [address] [place], [place] [phone] Kailey Allan DDS 230 [place] [address] documented as of this encounter Visit Diagnoses Diagnosis Anxiety and depression documented in this encounter Additional Health Concerns Assessment Noted Time PHQ-9 Depression Total Score: 0 01/27/20 10:46 AM EDT documented as of this encounter Care Teams Bilingual Branch Manager Relationship Specialty Start Date End Date Linette Ventura MD [address] [place] [address] [phone] PCP - General Internal Medicine 12/06/22 Justin Rojo FNP [address] [place] [address] Nurse Practitioner Family Medicine 05/05/23 documented as of this encounter
--- OUTSIDE RECORDS SUMMARY | 2024-09-09 11:21 | XMS_ITS | Clinical Summary ---
Author Organization [employer] Address [address] [facility] [address] 7t [place] [address] Care Team Providers Care Top Icer Name Role Phone Linette Ventura MD Primary Care Pro vider Justin Rojo Unavailable Unavailable Allergies Active Allergy Reactions Criticality Noted Date Comments Oxycodone Hallucinations 06/14/2013 Medications cetirizine (ZyrTEC) 10 MG tabletIndication s:Seasonal allergic rhinitis, unspecified trigger TOME SCOTT TABLETA TODOS LOS D CUANDO SEA NECESARIO 90 tablet 1 3 Active omeprazole (PriLOSEC) [address] capsule TAKE 1 CAPSULE BY MOUTH TWICE A DAY BEFORE A MEAL 180 capsule 3 Active calcium carbonate (Tums Ultra 1000) 1000 MG chewable tablet Chew 2 tablets every 12 (twelve) hours. 2 Active naltrexone (Depade) 50 MG tablet Take 25 mg by mouth in the morning. 3 Active Blood Pressure Monitor kit 1 kit in the morning. 1 kit 3 Active nystatin (Nyamyc) 058575 UNIT/GM powder APPLY TOPICALLY TWICE A DAY 30 g 4 Active buPROPion XL (Wellbutrin XL) 300 MG 24 hr tabletIndication s:Anxiety and depression Take 1 tablet (300 mg) by mouth Once per day. Do not crush, chew, or split. 90 tablet 3 4 Active ibuprofen 800 MG tablet Take 800 mg by mouth every 8 (eight) hours if needed. 4 Active ergocalciferol (Vitamin D2) 1.25 MG (19078 UT) capsule TAKE 1 CAPSULE BY MOUTH ONCE A WEEK 13 capsule 1 4 Active Zepbound 2.5 MG/0.5ML solution auto-injector INJECT 0.5 ML UNDER THE SKIN EVERY 7 (SEVEN) DAYS FOR 28 DAYS. 4 Active Ketotifen Fumarate 0.035 % solution Administer 1 drop into both eyes every 12 (twelve) hours. 5 mL 2 5 Active amLODIPine (Norvasc) 2.5 MG tablet TAKE 1 TABLET BY MOUTH EVERY MORNING 90 tablet 1 5 Active famotidine (Pepcid) 20 MG tablet TAKE 1 TABLET BY MOUTH TWICE A DAY NEEDED 180 tablet 5 Active furosemide (Lasix) 20 MG tabletIndication s:Lower leg edema TAKE 1 TABLET BY MOUTH EVERY MORNING NEEDED FOR SWELLING 90 tablet 1 5 Active hydrOXYzine HCl (Atarax) 25 MG tabletIndication s:Anxiety and depression TAKE 1-2 TABLETS BY MOUTH EVERY 6 HOURS IF NEEDED FOR ANXIETY 200 tablet 1 5 Active Active Problems Problem Noted Date Diagnosed [...] patients screen every Pap Smear: 10/30/22 performed [facility], pending results Mammogram: Per ACS [...] medication management. Any issues or concerns, contact [facility]. All her questions were answered and I [...] Encounters Date Type Department Care Team Description 09/06/2024 Telephone [facility] MEDICINE [address] [place] [address] Linette Ventura MD 08/31/2024 Patient Outreach [facility] [address] [place] [address] Linette Ventura MD Pre-visit Planning (SDOH Screening negative and Tobacco screening negative) 08/25/2024 10:30 AM EDT Office Visit [facility] CH[facility] ADULT DENTAL [address] [place] [address] Kailey Allan DDS 08/18/2024 Orders Only [facility]INE 230 [place] [address] Linette Ventura MD 08/13/2024 Population Health Risk Score [facility] [address] [phone] Provider, Population Health Generic 08/05/2024 Refill [facility] [address] [place] [address] Melanie Zacarias MD Anxiety and depression 07/05/2024 Telephone [facility] [address] [place] [address] Keagan Toya SOLA august recall 06/22/2024 8:30 AM EST Office Visit [facility] ADULT DENTAL 505 [place] [address] Kailey Allan, DDS 06/16/2024 11:00 AM EST Office Visit [facility] ADULT DENTAL 505 [place] [address] Kailey Allan, DDS 06/16/2024 Travel 06/16/2024 Refill [facility] MED & PEDS [address] [place] [address] Linette Ventura MD Lower leg edema from Last 3 Months Immunizations Name Administration [...] housing situation today? I have gibran english 08/31/[address] you li ve. Do you have problems with any of the following? None of the above 08/31/2024 Food Insecurity Answer Date Recorded Within the past 12 months, y ou worried that your food would run out before you got money to buy more: Never True 08/31/2024 Within the past 12 months,th e food you bought just didn't last and you didn't have enough money to get more: Never True 06/2024 Transportation Answer Date Recorded In the past 12 months, has l ack of transportation kept you from medical appts, meetings, work or from getting things needed for daily living? No 08/31/2024 Utilities Answer Date Recorded In the past 12 months, has t he electric, gas, oil or water company threatened to shut off services in your home? No 08/31/2024 Depression Answer Date Recorded Patient Health Questionnaire-2 [...] Description 09/14/2024 10:00 AM EDT Office Visit [facility] [address] [place] [address] Linette Ventura MD [address] [place], [place] [phone] 09/22/2024 10:00 AM EDT Office Visit [facility] ADULT DENTAL [address] [place] [address] Kailey Allan, [employer] [address] [place] [address] Health Maintenance Due Date Last Done Comments [...] 2024 03/26/2011, 2006 Dental X-Ray: Bitewings 02/27/2024 02/26/20, 01/31/2022, 08/15/2014, Additional history exists Colonoscopy 08/24/2024 08/25/2019 Colorectal Cancer Screening 08/24/2024 Depression Screening 01/26/2025 01/27/2024, 01/27/20 24 Diagnostic Breast Imaging 02/18/2025 08/18/2024, 10/2023 Alcohol/Substance Use Screening 03/31/2025 03/31/2024 Tobacco Screening 08/25/2025 08/25/2024 SDOH Screening 08/31/2025 08/31/2024 Pap Smear 10/31/2025 10/31/2022, 10/30/2022 Dental X-Ray: Full Mouth 08/20/2026 08/20/2023, 09/06/2021 Cervical Cancer Screening 10/31/2027 HPV/Cotest 10/31/2027 10/30/2022, [...] Procedure Name Priority Date/Time Associated Diagnosis Comments CASE PRESENTATION, DETAILED AND EXTENSIVE TREATMENT PLANNING Routine 08/25/2024 10:30 AM EDT LIMITED ORAL EVALUATION - PROBLEM FOCUSED Routine 08/25/2024 10:30 AM EDT BI MAMMOGRAM DIAGNOSTIC TOMOSYNTHESIS BILATERAL Routine 08/18/2024 1:30 PM EDT DENTURE FOLLOWUP Routine 06/22/2024 8:30 AM EST DENTURE IMPRESSION Routine 06/16/2024 11 :00 AM EST HEPATITIS C AB W/REFL TO HCV RNA, QN, PCR Routine 03/25/2024 9:30 AM EDT Annual physical exam HIV 1/2 ANTIGEN/ANTIBODY, FOURTH GENERATION W/RFL Routine 03/25/2024 9:30 AM EDT Annual physical exam LIPID PANEL, STANDARD Routine 03/25/2024 9:30 AM EDT Annual physical exam PANORAMIC RADIOGRAPHIC IMAGE Routine 08/20/2023 10:00 AM [...] Recently Relevant to Health Maintenance Results * BI Mammogram Diagnostic Tomosynthesis Bilateral (08/18/2024 1:30 PM EDT) Anatomical Region Laterality Modality Breast Bilateral Mammography 08/18/2024 1:30 PM EDT Narrative 08/18/2024 2:08 PM EDT ? [facility] ? [address] ?[place] [address] ? Mammography Report ? Signed ? Patient: RudyCarla ?MR#: [id number] ?? [id number] ? : 1970 ?Acct:[id number] ? Age/Sex: 54 / F ?ADM Date: 03/19/25 ? Loc: HO.MAMMO ? Attending Dr: Linette Levy MD ? Ordering Physician: Linette Ventura MD ?Results: 3.12MProbably Benign Finding - 12 month ?? F/U Suggested ? Date of Service: 08/18/24 ?Follow Up: 12 month diagnos ?? tic follow up ? Procedure(s): MM tomosynthesis diagnostic BI ?? Accession Number(s): [id number] ? cc: Linette Ventura MD ? EXAMINATION: ?? MM DIAGNOSTIC DIGITAL BREAST TOMOSYNTHESIS, BILATERAL ? CLINICAL INFORMATION: ? 18 month follow-up for calcifications in the right breast. ? COMPARISON: ?? Mammography: Comparison is made with relevant prior exams. ? TECHNIQUE: ?? Digital breast mammography with tomosynthesis is performed in both the ?? craniocaudal and mediolateral oblique views along with computer-aided ?? detection (CAD). ? FINDINGS: ?? There are scattered areas of fibroglandular density (ACR BI-RADS breast ?? composition Category b). ?? Left: ?? There are no significant masses, abnormal calcifications, or other ?? abnormalities. ? Right: ?? Coarse ??and punctate calcifications in the retroareolar region of the ?? right breast are not significantly changed on magnification views ?? dating back to April 2023. ?? No suspicious masses or other abnormal findings. ? Results are provided to the patient at time of visit by the ?? technologist. ? MM/MM tomosynthesis diagnostic BI ?? IMPRESSION: ?? Left: Negative. ?? Right: Grouped calcifications in the retroareolar region are not ?? significant change from priors dating back for April 2023. Recommend ?? diagnostic mammography in one year when the patient is due for ?? bilateral mammogram to demonstrate 2 years of stability. ? ASSESSMENT: ? BI-RADS BI-RADS 3 - Probably benign finding(s) - 12 month follow-up ?? suggested ? RECOMMENDATION: ?? 12 month diagnostic follow up ? This patient's information was entered into a reminder system with a ?? target due date for their next mammogram. ? Electronically signed by: ??Tati Suárez DO ??08/18/2024 02:05 PM EDT ? Dictated By: ?Tati Suárez DO ? Signed By: ?<Electronically signed by Tati Suárez, DO in OV> ? 08/18/24 1405 ? DD/ 1330 ? TD/TT: 08/18/24 1348 ? Train Controller: ? Procedure Note Donotuseinterpreter, Image - 08/18/2024 [facility] [address] [place] [address] Mammography Report Signed Patient: Carla GrantMR#: [id number] : 1970Acct:[id number] Age/Sex: 54 / FADM Date: 08/18/24 Loc: HO.MAMMO Attending Dr: Linette Levy MD Ordering Physician: Linette Ventura MD Results: 3.12MProbably Benign Finding - 12 month F/U Suggested Date of Service: 08/18/24Follow Up: 12 month diagnos tic follow up Procedure(s): MM tomosynthesis diagnostic BI Accession Number(s): [id number] cc: Linette Ventura MD EXAMINATION: MM DIAGNOSTIC DIGITAL BREAST TOMOSYNTHESIS, BILATERAL CLINICAL INFORMATION: 18 month follow-up for calcifications in the right breast. COMPARISON: Mammography: Comparison is made with relevant prior exams. TECHNIQUE: Digital breast mammography with tomosynthesis is performed in both the craniocaudal and mediolateral oblique views along with computer-aided detection (CAD). FINDINGS: There are scattered areas of fibroglandular density (ACR BI-RADS breast composition Category b). Left: There are no significant masses, abnormal calcifications, or other abnormalities. Right: Coarse and punctate calcifications in the retroareolar region of the right breast are not significantly changed on magnification views dating back to April 2023. No suspicious masses or other abnormal findings. Results are provided to the patient at time of visit by the technologist. MM/MM tomosynthesis diagnostic BI IMPRESSION: Left: Negative. Right: Grouped calcifications in the retroareolar region are not significant change from priors dating back for April 2023. Recommend diagnostic mammography in one year when the patient is due for bilateral mammogram to demonstrate 2 years of stability. ASSESSMENT: BI-RADS BI-RADS 3 - Probably benign finding(s) - 12 month follow-up suggested RECOMMENDATION: 12 month diagnostic follow up This patient's information was entered into a reminder system with a target due date for their next mammogram. Electronically signed by: Tati Suárez DO 08/18/2024 02:05 PM EDT Dictated By: Tati Suárez DO Signed By: <Electronically signed by Tati Suárez DO in OV> 08/18/24 1405 DD/ 1330 TD/TT: 08/18/24 1348 Train Controller: Linette Levy MD IMG BI PROCEDURES Final Result * Hepatitis C Antibody with Reflex to HCV, RNA, Quantitative, Real-Time PCR (03/25/2024 9:30 AM EDT) Hepatitis C Antibody Nonreactive Nonreactive [facility] Comment:Antibodies to HCV no t detected; does not exclude early acuteHCV infection. Blood Venous blood specimen / Unknown 03/25/2024 9:30 AM EDT 03/25/2024 10:59 AM EDT us Linette Levy MD LAB BLOOD ORDERAB LES Final Result [facility] [address] [place] [address] [phone] * HIV-1/2 Antigen and Antibodies, Fourth Generation, with Reflexes (03/25/2024 9:30 AM EDT) HIV AB/AG Nonreactive Nonreactive [facility] Comment:HIV-1 p24 Ag and/or HIV-1/HIV-2 Ab not detected.A test result that is nonreactive does not exclude thepossibility of exposure to or infection with HIV-1 and/orHIV-2. Nonreactive results in this assay for individualswith prior exposure to HIV-1 and/or HIV-2 may be due toantigen and antibody levels that are below the limit ofdetection of this assay.The [employer] HIV Ag/Ab Combo assay result andsupplemental assay results should be interpreted inconjunction with the patient's clinical presentation,history and other laboratory results. If the results areinconsistent with clinical evidence, additional testing issuggested to confirm the result. Blood Venous blood specimen / Unknown 03/25/2024 9:30 AM EDT 03/25/2024 10:59 AM EDT us Linette Levy MD LAB BLOOD ORDERAB LES Final Result [facility] [address] [place] [phone] * (ABNORMAL) Lipid Panel, Standard (03/25/2024 9:30 AM EDT) Triglycerides 81 <150 mg/dL [facility] Comment:Desirable Triglyceri de: less than 150 mg/dLBorderline High Triglyceride 150-199 mg/dLHigh Triglyceride: 200-499 mg/dLVery High Triglyceride: greater than or equal to 5OO mg/dL Cholesterol 188 <200 mg/dL [facility] Comment:Desirable Cholestero l: less than 200 mg/dLBorderline High Cholesterol: 200-239 mg/dLHigh Cholesterol: greater than 239 mg/dL LDL Cholesterol Calculated 111(H) <100 mg/dL [facility] Comment:Desirable LDL: less than 100 mg/dLNear Optimal/Above Optimal LDL: 110- 129 mg/dLBorderline High LDL: 130-159 mg/dLHigh LDL: 160-189 mg/dLVery High LDL: greater than or equal to 190 mg/dL HDL Cholesterol 61 >40 mg/dL [facility] Comment:Desirable HDL: great er than 40 mg/dL Note: This HDL assay may give artificially low results in patients with liver disease. Blood Venous blood specimen / Unknown 03/25/2024 9:30 AM EDT 03/25/2024 10:59 AM EDT Linette Levy MD LAB BLOOD ORDERAB LES Final Result [facility] [address] [place] [address] [phone] * Hm Pap Smear (10/31/2022) Pap smear NILM HPV neg Historical Provider HEALTH MAINTENANCE Final Result * HPV mRNA E6/E7 w/Reflex to HPV Genotypes 16, 18/45 (10/30/2022 2:48 PM EDT) HPV nRNA E6/E7 Not Detected Not Detected [facility] Comment:Methodology: Transcr iption-Mediated AmplificationThis assay detects E6/E7 viral messenger RNA (mRNA) from 14high-risk HPV types (16,18,31,33,35,39,45,51,52,56,58,59,66,68).Cervical sources are required for HPV testing.If a vaginal source from a patient who has had atotal hysterectomy with removal of cervix wassubmitted, please contact the testing laboratoryfor alternative testing options.For additional information, please refer tohttp://education.Howcast/faq/ZZR909p7(This link if provided for information/educational purposes only.)THIS TEST WAS PERFORMED AT:[employer] [place] [phone] GATES MD HPV mRNA E6/E7 UTP [facility] HPV 16 RNA [facility] HPV 18/45 RNA [facility] 10/30/2022 2:48 PM EDT 10/31/2022 8:30 AM EDT [facility] External Provider LAB CYT OLOGY ORDERABLES Final Result [facility] [address] [place] [address] [phone] * Hm Colonoscopy (08/25/2019 12:29 PM EDT) us Historical Provider MD HEALTH MAINTENANCE Final Result from Last 3 Months or Most Recently Relevant to Health Maintenance Insurance [facility] C3 DENTAL-[facility] MEDICAID STAND ADULT Care Teams Top Icer Relationship Specialty Start Date End Date Linette Ventura MD [address] [place] [address] PCP - General Internal Medicine 12/06/22 Justin Rojo FNP [address] [place] [address] Nurse Practitioner Family Medicine 05/05/23
--- OUTSIDE RECORDS SUMMARY | 2024-09-09 11:21 | XMS_ITS | Encounter Summary ---
Author Organization [employer] Address 75 [facility] 7t [place] [address] Care Team Providers Care Databases Software Consultant Name Role Phone Linette Ventura MD Primary Care Pro vider Justin Rojo Unavailable Unavailable Reason for Visit * Reason Comments Med Change Request Encounter Details Date Type Department Care Team (Late st Contact Info) Description 06/17/2023 Refill [facility] MEDICINE [address] [place], [place] [phone] Linette Ventura MD [address] [place], [place] [phone] Social History Tobacco Use Types Packs/Day Years [...] is your housing situation today? I have gibarnviviane english 03/19/[address] you [...] Description 09/14/2024 10:00 AM EDT Office Visit [facility] MEDICINE [address] [place] [phone] Linette Ventura MD [address] [place] [phone] 09/22/2024 10:00 AM EDT Office Visit [facility] CHC ADULT DENTAL [address] [place] [address] Kailey Allan DDS [address] [place] [address] documented as of this encounter Visit Diagnoses Not on filedocumented in this encounter Additional Health Concerns Assessment Noted Time PHQ-9 Depression Total Score: 0 05/15/20 9:10 AM EST documented as of this encounter Care Teams Databases Software Consultant Relationship Specialty Start Date End Date Linette Ventura MD [address] [place] [phone] PCP - General Internal Medicine 12/06/22 Justin Rojo FNP [address] [place] [address] Nurse Practitioner Family Medicine 05/05/23 documented as of this encounter
--- OUTSIDE RECORDS SUMMARY | 2024-09-09 11:21 | XMS_ITS | Encounter Summary ---
Author Organization [employer] Address 75 [facility] 7t [place] [address] Care Team Providers Care Vp Director Of Finance Name Role Phone Tigist Bartholomew WEB EDITOR Primary Care Provider +1- [phone] Linette Ventura MD Primary Care Pro vider Justin Rojo Unavailable Unavailable Reason for Visit * Reason Comments Med Refill Encounter Details Date Type Department Care Team (Late st Contact Info) Description 05/06/2022 Refill [facility] MEDICINE [address] [place] [phone] Tigist Bartholomew FNP [address] [place] [address] Dept [place] [address] Social History Tobacco Use Types Packs/Day Years [...] Description 09/14/2024 10:00 AM EDT Office Visit [facility] MEDICINE [address] [place] [address] [phone] Linette Ventura MD [address] [place] [address] [phone] 09/22/2024 10:00 AM EDT Office Visit [facility] ADULT DENTAL [address] [place] [address] Kailey Allan DDS [address] [place], [place] [phone] documented as of this encounter Visit Diagnoses Not on filedocumented in this encounter Care Teams Vp Director Of Finance Relationship Specialty Start Date End Date Tigist Bartholomew FNP PCP - General Family Medicine 12/09/21 12/05/22 Linette Ventura MD [address] [place], [place] [phone] PCP - General Internal Medicine 12/06/22 Justin Rojo FNP [address] [place] [address] Nurse Practitioner Family Medicine 05/05/23 documented as of this encounter
--- OUTSIDE RECORDS SUMMARY | 2024-09-09 11:21 | XMS_ITS | Encounter Summary ---
Author Organization [employer] Address [address] [facility] 7t [place] [address] Care Team Providers Care Stripper Machine Operator Name Role Phone Linette Ventura MD Primary Care Pro vider Justin Rojo Unavailable Unavailable Encounter Details Date Type Department Care Team (Late st Contact Info) Description 09/06/2024 Telephone [facility] MEDICINE [address] [place], [place] [phone] Linette Ventura MD 230 [place], [place] [phone] Social History Tobacco Use Types Packs/Day Years [...] your housing situation today? I have gibran sing 08/31/[address] you li [...] encounter Miscellaneous Notes * Telephone Encounter - Toya Boogie [place] - 09/06/2024 9:55 AM EDT Chart Prep Labs: done Images: done Vaccines due: Covid Due, Hep B Due, PCV20 Due, and Flu Due Referrals: Completed Screenings: Colonoscopy Overdue care gaps: Disability and Oral Health documented in this encounter Plan of Treatment Upcoming Encounters Date Type Department Care Team (Late st Contact Info) Description 09/14/2024 10:00 AM EDT Office Visit [facility] MEDICINE [address] [place] [address] Linette Ventura MD 230 [place] [address] 09/22/2024 10:00 AM EDT Office Visit [facility] CHC ADULT DENTAL [address] [place] [address] Kailey Allan DDS 230 [place] [address] documented as of this encounter Visit Diagnoses Not on filedocumented in this encounter Additional Health Concerns Assessment Noted Time PHQ-9 Depression Total Score: 0 01/27/20 24 10:46 AM EDT documented as of this encounter Care Teams Stripper Machine Operator Relationship Specialty Start Date End Date Linette Ventura MD 230 [place] [address] PCP - General Internal Medicine 12/06/22 Justin Rojo FNP 230 [place] [address] Nurse Practitioner Family Medicine 05/05/23 documented as of this encounter
--- OUTSIDE RECORDS SUMMARY | 2024-09-09 11:21 | XMS_ITS | Clinical Summary ---
Author Organization [address] [facility] Address [address] [place] [address] Phone Care Team Providers Care Secondary School Teacher Librarian Name Role Phone Justin Rojo NP Primary Care Provider [phone] Allergies Active Allergy Reactions Criticality Noted Date [...] Encounters Date Type Department Care Team Description 08/19/2024 10:00 AM EDT Office Visit Bariatric Surgery [address] [phone] Crystal Kowalski MD Class 2 obesity due to excess calories with body mass index (BMI) of 36.0 to 36.9 in adult, unspecified whether serious comorbidity present (Primary Dx); Excess skin of arm 06/17/2024 Telephone Bariatric Surgery - [address] [phone] Crystal Kowalski MD Med Refill (Zepbound) from Last 3 Months Surgical History Surgery Date Site/Laterality Comments SECTION PROCEDURE: HISTORICAL DELIVERY GASTRIC BYPASS PROCEDURE: IN GASTRIC RSTCV W/BYP W/SM INT RCNSTJ LIMIT ABSRPJ OTHER SURGICAL HISTORY PROCEDURE: IN LAPS GASTRIC RESTRICTIVE PROCEDURE PLACE DEVICE OTHER SURGICAL HISTORY 06/11/2021 PROCEDURE: IN LAPS TOTAL HYSTERECT 250 GM/< W/RMVL TUBE/OVARY; [...] Sign Reading Time Taken Comments Blood Pressure 110/72 08/19/2024 10:07 AM EDT Pulse 74 08/19/2024 10:07 AM EDT Temperature 36.6 ??C (97.8 ??F) 08/19/2024 10:07 AM E DT Respiratory Rate - - Oxygen Saturation - - Inhaled Oxygen Concentration - - Weight 87.5 kg (193 lb) 08/19/2024 10:07 AM EDT Height 154.9 cm (5' 1 ) 08/19/2024 10:07 AM EDT Body Mass Index 36.47 08/19/2024 10:07 AM EDT Plan of Treatment Upcoming Encounters Date Type Department Care Team (Late st Contact Info) Description 10/05/2024 2:[address] [facility] Xray [address] [place] [phone] 02/17/2025 10:15 AM EDT Office Visit Bariatric Surgery - [place] [address] [facility] [address] [place] [phone] Crystal Kowalski MD 175 [facility] [address] [place] [address] Health Maintenance Due Date Last Done Comments Breast Cancer Screening 1970 Hepatitis B Vaccines (1 of 3 - 19+ 3-dose series) 1990 Pneumococcal Vaccine: 50+ Years (1 of 1 - PCV) 2021 Colorectal Cancer Screening: Colonoscopy 05/01/2022 Social Influencers of Health Screening 05/01/2022 COVID-19 Vaccine (2 - 2023-2 5 season) 2024 01/22/2023 Depression Screening 01/26/2025 01/27/2024 Influenza Vaccine (Season Ended) 2025 03/26/2011, 04/28/2007 Hypertension/CHF/CAD Annual BMP Blood Test 03/25/2025 03/25/2024, [...] age to complete this topic Meningococcal B Vaccine Aged Out No l onger eligible based on patient's age to complete [...] Results * Annual BMP Blood Test (05/13/2023) Pathologist [facility] Annual BMP Blood Test abstracted [facility] Provider HEALTH MAINTENANCE Final Result * HIV Screening (01/29/2023) [facility] HIV Screening abstracted [facility] Provider HEALTH MAINTENANCE Final Result * Hepatitis C Screening (01/29/2023) [facility] Hepatitis C Screening abstracted [facility] Provider HEALTH MAINTENANCE Final Result * Lipid panel (01/29/2023) [facility] LDL/HDL Ratio 0 Comment:no interpretation Triglycerides 0 mg/dL Comment:no interpretation Cholesterol 0 mg/dL Comment:no interpretation HDL 0 mg/dL Comment:no interpretation LDL Cholesterol 0 mg/dL Comment:no interpretation Blood Venous blood specimen / Unknown Historical Provider LAB BLOOD ORDERABLES Hayley l Result * Cervical Cancer Screening: HPV (10/30/2022) Cervical Cancer Screening: HPV no interpretation , abstracted Historical Provider HEALTH MAINTENANCE Final Result from Last 3 Months or Most Recently Relevant to Health Maintenance Insurance MEDICAID - [place] Care Teams Secondary School Teacher Librarian Relationship Specialty Start Date End Date Justin Rojo NP [address] [place], [place] PCP - General 03/20/23
--- OUTSIDE RECORDS SUMMARY | 2024-09-09 11:22 | XMS_ITS | Encounter Summary ---
Author Organization [employer] Address 75 [facility] 7t [place] [address] Care Team Providers Care Digester Cook Name Role Phone Linette Ventura MD Primary Care Pro vider Justin Rojo Unavailable Unavailable Reason for Visit * Reason Comments Med Refill Encounter Details Date Type Department Care Team (Late st Contact Info) Description 06/15/2023 Refill [facility] MEDICINE 230 [place], [place] [phone] Linette Ventura MD 230 [place], [place] [phone] Social History Tobacco Use Types Packs/Day Years [...] Description 09/14/2024 10:00 AM EDT Office Visit [facility] MEDICINE [address] [place] [address] Linette Ventura MD [address] [place] [address] 09/22/2024 10:00 AM EDT Office Visit [facility] CHC ADULT DENTAL [address] [place] [address] Kailey Allan DDS 230 [place] [address] documented as of this encounter Visit Diagnoses Not on filedocumented in this encounter Additional Health Concerns Assessment Noted Time PHQ-9 Depression Total Score: 0 05/15/20 9:10 AM EST documented as of this encounter Care Teams Digester Cook Relationship Specialty Start Date End Date Linette Ventura MD [address] [place] [address] PCP - General Internal Medicine 12/06/22 Justin Rojo FNP [address] [place] [address] Nurse Practitioner Family Medicine 05/05/23 documented as of this encounter
--- OUTSIDE RECORDS SUMMARY | 2024-09-09 11:22 | XMS_ITS | Encounter Summary ---
Author Organization [employer] Address [address] [facility] [address] 7t [place] [address] Care Team Providers Care Customer Solutions Supervisor Name Role Phone Linette Ventura MD Primary Care Pro vider Justin Rojo Unavailable Unavailable Encounter Details Date Type Department Care Team (Late st Contact Info) Description 11/03/2023 Orders Only [facility] MEDICINE [address] [place] [address] Provider, MD Jared Social History Tobacco Use [...] 10:00 AM EDT Office Visit [facility] MEDICINE [address] [place] [address] Linette Ventura MD 230 [place] [address] 09/22/2024 10:00 AM EDT Office Visit [facility] CHC ADULT DENTAL [address] [place] [address] Kailey Allan DDS 230 [place] [address] documented as of this encounter Procedures Procedure Name Priority Date/Time Associated Diagnosis Comments BI MAMMOGRAM DIAGNOSTIC TOMOSYNTHESIS RIGHT Routine 11/05/2023 11:38 AM EDT HM COLONOSCOPY Routine 08/25/2019 12:29 PM EDT documented in this encounter Results * BI Mammogram Diagnostic Tomosynthesis Right (11/05/2023 11:38 AM EDT) Anatomical Region Laterality Modality Breast Right Mammography 11/05/2023 11:3 8 AM EDT Narrative 11/05/2023 12:24 PM EDT ? [facility] ? [address] [address] ? Mammography Report ? Signed ? Patient: Grant,Carla ?MR#: [id number] ?? [id number] ? : 1970 ?Acct:[id number] ? Age/Sex: 53 / F ?ADM Date: 11/05/23 ? Loc: HO.MAMMO ? Attending Dr: Linette Levy MD ? Ordering Physician: Linette Ventura MD ?Results: 3.6MProbably Benign Finding - Short 6 M ?? F/U Suggested ? Date of Service: 11/05/23 ?Follow Up: 6 Month F/U ? Procedure(s): MM tomosynthesis diagnostic RT ?? Accession Number(s): [id number] ? cc: Linette Ventura MD ? EXAMINATION: [...] 1221 ? DD/ 1138 ? TD/TT: ? Multiple Pressure Riveter Operator: ? Procedure Note Angel, Image - 11/05/2023 [facility] [address] [place] [address] Dr. Lundy, SOLA [address] Mammography Report Signed Patient: Carla Grant#: [id number] : 1970Acct:[id number] Age/Sex: 53 / FADM Date: 11/05/23 Loc: LYNDSAYO Attending Dr: Linette Levy MD Ordering Physician: Linette Ventura MD Results: 3.6MProbably Benign Finding - Short 6 M F/U Suggested Date of Service: 11/05/23Follow Up: 6 Month F/U Procedure(s): MM tomosynthesis diagnostic RT Accession Number(s): [id number] cc: Linette Ventura MD EXAMINATION: MM DIAGNOSTIC [...] in OV> 11/05/23 1221 DD/ 1138 TD/TT: Multiple Pressure Riveter Operator: us Linette Levy MD IMG BI PROCEDURES Final Result * Hm Colonoscopy (08/25/2019 12:29 PM EDT) us Historical Provider HEALTH MAINTENANCE Final Result documented in this encounter Visit Diagnoses Not on filedocumented in this encounter Additional Health Concerns Assessment Noted Time PHQ-9 Depression Total Score: 0 11/03/19 24 9:02 AM EDT documented as of this encounter Care Teams Customer Solutions Supervisor Relationship Specialty Start Date End Date Linette Ventura MD [address] [place], [place] [phone] PCP - General Internal Medicine 12/06/22 Justin Rojo FNP [address] [place] [address] Nurse Practitioner Family Medicine 05/05/23 documented as of this encounter
--- OUTSIDE RECORDS SUMMARY | 2024-09-09 11:22 | XMS_ITS | Encounter Summary ---
Author Organization [employer] Address [address] [facility] [address] 7[address] [place] [address] Care Team Providers Care Head Of Transport Logistics Name Role Phone Linette Ventura MD Primary Care Pro vider Justin Rojo Unavailable Unavailable Reason for Visit * Reason Comments Med Refill Encounter Details Date Type Department Care Team (Late st Contact Info) Description 06/11/2023 Refill [facility] MEDICINE [address] [place], [place] [phone] Melanie Zacarias MD 230 [place], [place] [phone] Social History Tobacco Use Types Packs/Day Years [...] Description 09/14/2024 10:00 AM EDT Office Visit [facility] MED[facility]INE [address] [place] [address] Linette Ventura MD [address] [place] [address] 09/22/2024 10:00 AM EDT Office Visit [facility] CHC ADULT DENTAL [address] [place] [address] Kailey Allan DDS 230 [place] [address] documented as of this encounter Visit Diagnoses Not on filedocumented in this encounter Additional Health Concerns Assessment Noted Time PHQ-9 Depression Total Score: 0 05/15/20 9:10 AM EST documented as of this encounter Care Teams Head Of Transport Logistics Relationship Specialty Start Date End Date Linette Ventura MD [address] [place] [address] PCP - General Internal Medicine 12/06/22 Justin Rojo FNP [address] [place] [address] Nurse Practitioner Family Medicine 05/05/23 documented as of this encounter
--- OUTSIDE RECORDS SUMMARY | 2024-09-09 11:22 | XMS_ITS | Encounter Summary ---
Author Organization [employer] Address [address] [facility] 7t [place] [address] Care Team Providers Care Paper Wood Cutter Name Role Phone Linette Ventura MD Primary Care Pro vider Justin Rojo Unavailable Unavailable Reason for Visit * Reason Comments Med Refill Encounter Details Date Type Department Care Team (Late st Contact Info) Description 06/26/2023 Refill [facility] MEDICINE 230 [place], [place] [phone] Linette Ventura MD 230 [place], [place] [phone] Fungus infection Social History Tobacco Use Types [...] Description 09/14/2024 10:00 AM EDT Office Visit [facility] MEDICINE [address] [place] [address] Linette Ventura MD [address] [place] [address] 09/22/2024 10:00 AM EDT Office Visit [facility] CHC ADULT DENTAL [address] [place] [address] Kailey Allan DDS 230 [place] [address] documented as of this encounter Visit Diagnoses Diagnosis Fungus infection Other and unspecified mycoses documented in this encounter Additional Health Concerns Assessment Noted Time PHQ-9 Depression Total Score: 0 05/15/20 9:10 AM EST documented as of this encounter Care Teams Paper Wood Cutter Relationship Specialty Start Date End Date Linette Ventura MD [address] [place] [address] PCP - General Internal Medicine 12/06/22 Justin Rojo FNP [address] [place] [address] Nurse Practitioner Family Medicine 05/05/23 documented as of this encounter
== END ==
LOC: HO.CARD 09:54
PROVIDERS: PCP Student in an Organized Health Care Education/Training Program; Visit Provider Internal Medicine Cardiovascular Disease
DX: R00.2 Palpitations (principal); R55 Syncope and collapse
CPT/HCPCS: 93270; 93306

== ENCOUNTER → 2024-09-09 09:57 | Outpatient (BNV) | payer MEDICAID, SELFPAY | PROVIDERS: PCP Student in an Organized Health Care Education/Training Program; Visit Provider Internal Medicine Cardiovascular Disease | DX: I77.810 Thoracic aortic ectasia (principal) | CPT/HCPCS: 93306 ==

== ENCOUNTER 2024-11-11 12:43 | Outpatient (AMB) | payer MEDICAID, SELFPAY ==
[2024-11-11 12:53] VITALS: BP 100/72; PULSE 75; BMI 35.2
--- NOTE | 2024-11-11 12:53 | MHC.OFFVIS ---
Vital Signs 11/11/24 12:53 Height 5 ft 1 in Weight 186 lb 8.177 oz BMI 35.2 BP 100/72 Blood Pressure Location Lt brachial Position Sitting Pulse 75 Pulse Source Pulse Oximeter Intake Visit Reasons: f/u tilt table results Foundation Drill Operator Required: No Allergies oxycodone [From PERCOCET] Allergy (Intermediate, Verified 11/11/24 12:56) HALLUCINATIONS Medication List - Last Reconciled 11/11/24 by Tracie Birmingham, ORDER TO DELIVERY SUPERVISOR-C amlodipine 2.5 mg PO QAM bupropion HCl XL 300 mg PO DAILY cyanocobalamin (vitamin B-12) (Vitamin B-12) 1,000 mcg PO DAILY famotidine 20 mg PO DAILY furosemide (Lasix) 20 mg PO DAILY PRN hydroxyzine HCl 25 - 50 mg PO Q6H PRN ketotifen fumarate 0.025%(0.035%) 1 drp ophthalmic (eye) Q12H omeprazole 20 mg PO DAILY 30 days sertraline 25 mg PO DAILY sodium,potassium,mag sulfates 17.5-3.13-1.6 gram (Suprep Bowel Prep Kit) DILUTE; drink 1/2 at 6-8 pm and half at 11 PM- 1AM sucralfate 1 g PO BID 4 weeks tirzepatide (weight loss) (Zepbound) 2.5 mg subcut QWEEK HPI HPI f/u tilt table results: Details: Janie is a 54-year-old female presenting with follow-up for palpitations and presyncope. She has orthostatic hypotension diagnosed via tilt table test on 10/25/2024, indicating low blood pressures upon standing. Echocardiography on 09/09/2024 showed normal study with exception of mildly dilated thoracic aorta at 3.8 cm, with cardiac monitoring revealing sinus rhythm and occasional PVCs. The patient has mild lower extremity swelling, occasionally using furosemide. She has been on amlodipine 2.5 mg daily for hypertension but experiences variable blood pressure readings and reports periodic dizziness. No other concerning symptoms reported. [facility] Medical History (Updated 11/11/24 @ 13:21 by Tracie Birmingham, ORDER TO DELIVERY SUPERVISOR-C) Left inguinal hernia (09/06/22) Tubular adenoma Gastritis HTN (hypertension) Morbid obesity Anemia IBS (irritable bowel syndrome) Surgical History Umbilical hernia S/P partial hysterectomy H/O right knee surgery Hx of section Tubal ligation status Hx of laparoscopic gastric banding Family History Father Prostate cancer Maternal Aunt Breast cancer Brother Prostate cancer Social History Household Members: None Housing: Apartment Alcohol intake: never Patient Tobacco Use Status: Never used Tobacco service: No Current occupational status: disabled Current occupation: rt handed Female Reproductive History Menstrual Age of Menarche: 11 Review of Systems Const All systems reviewed & are unremarkable except as noted in HPI and below ENT Details: lightheaded at times Denies dizziness Card Denies chest pain, Denies chest pain at rest, Denies chest pain with activity, Denies rapid heart rate, Denies pedal edema, Denies edema, Denies leg edema, Denies lightheadedness, Denies palpitations, Denies dyspnea, Denies dyspnea on exertion and Denies orthopnea Resp Denies cough, Denies dyspnea and Denies dyspnea on exertion GI Denies hematochezia and Denies change in stool character Musc Details: swelling in legs and weight gain if she does not take lasix Denies abnormal gait, Reports limited range of motion, Reports muscle cramps, Denies muscle weakness, Denies numbness, Denies radiating pain into limb, Denies stiffness and Denies tingling Neuro Denies abnormal gait, Denies dizziness, Denies numbness and Denies tingling Endo Denies palpitations Physical Exam Vital Signs: Last Vital Signs Pulse 75 11/11/24 12:53 BP 100/72 11/11/24 12:53 BMI result Body Mass Index 35.2 Const General: cooperative, healthy appearing, comfortable and no acute distress Orientation/consciousness: patient oriented x3 Neck Neck: Yes normal visual inspection Resp Effort & Inspection: normal respiratory effort Auscultation: clear to auscultation bilaterally, no rales, no rhonchi and no wheezes Cardio Rate: regular rate Rhythm: regular rhythm Heart sounds: S1 normal heart sound present, S2 normal heart sound present, no gallops, no murmurs and no rubs Neuro General: patient oriented x3 Extrem General: Yes normal to inspection, No no pedal edema and No calf tenderness Psych Appearance: grossly normal Mental Status: mental status grossly normal Speech and movement: Normal speech and movement present Assessment & Plan Assessment & Plan (1) Orthostatic hypotension: Code(s): I95.1 - Orthostatic hypotension Category: Medical Plan: Prior reports of lightheadedness and presyncopal type event. She underwent cardiac testing including an echocardiogram which showed normal EF, no valve abnormalities and no regional wall motion abnormalities. She wore a cardiac event monitor for 22.7 days showing sinus rhythm with no significant pauses, rare PVCs, heart rate range 50 to 120 with average 75. A tilt-table test was done on 10/05/2024 showing had hypotension. Test results reviewed with her in detail and questions answered. Instructed to increase fluid intake. Try to limit Lasix use for her leg edema to 2 times weekly. Try compression stockings. Her blood pressure is low today and she is on amlodipine 2.5 mg daily. Will be having her hold amlodipine and check home blood pressures. Will have our office nurse call her in 2 weeks to reassess. Cardiology follow-up 3 months, sooner if needed. (2) HTN (hypertension): Code(s): I10 - Essential (primary) hypertension Category: Medical Plan: Blood pressure goal less than 130/80. Currently 100/72 and new diagnosis of orthostatic hypotension. Will put amlodipine on hold and re-evaluate. Plan I discussed the implications of orthostatic hypotension and the role dehydration might play, especially with diuretic usage, recommending reduced furosemide intake. We mutually agreed to pause amlodipine to see its impact on standing blood pressures. The patient was reassured about the benign nature of her palpitations despite their discomforting nature. I advised routine monitoring of blood pressure and symptoms, especially noting any exacerbating factors like stress or caffeine intake. Future evaluation of the enlarged thoracic aorta can be done with echocardiogram. I outlined the strategy to manage current ngoing symptoms and emphasized the importance of hydration, recommending two-week nurse follow-up for blood pressure logging and symptom tracking, with an anticipated re-evaluation in three months. The patient understood and consented to the proposed management plan. Patient Instructions: - Stop amlodipine and observe blood pressure readings. - Drink plenty of fluids daily. - Limit furosemide to a maximum of twice per week. - Track blood pressure at home and maintain a log. - Limit caffeine to reduce palpitations. - Anticipate a follow-up call from the nurse in two weeks. - Follow up in the clinic in three months or sooner if symptoms worsen. Patient was informed and verbally consented to the use of an ambient scribe for clinic note documentation during this visit. Visit time spent on chart review, interview, assessment, orders, documentation. Coding Level of Care Code Est Pt Level 3 (96521) Complex EM visit Add On G2211 Diagnoses Orthostatic hypotension I95.1 HTN (hypertension) I10 Time Spent (min) 24
--- OUTSIDE RECORDS SUMMARY | 2024-11-11 14:39 | XMS_ITS | Encounter Summary ---
Author Organization [employer] Address [address] [facility] [address]t [place] [address] Care Team Providers Care Core Shaper Top Name Role Phone Linette Ventura MD Primary Care Pro vider Justin Rojo Unavailable Unavailable Reason for Visit * Reason Comments Med Change Request Encounter Details Date Type Department Care Team ([facility] st Contact Info) Description 01/30/2024 Refill [facility] CHC MED & PEDS [address] [place] [address] Linette Ventura MD [address] [place] [address] Anxiety and depression Social History Tobacco Use [...] as of this encounter Plan of Treatment Not on file documented as of this encounter Visit Diagnoses Diagnosis Anxiety and depression documented in this encounter Additional Health Concerns Assessment Noted Time PHQ-9 Depression Total Score: 0 01/27/20 24 10:46 AM EDT documented as of this encounter Care Teams Core Shaper Top Relationship Specialty Start Date End Date Linette Ventura MD 230 [place] [address] PCP - General Internal Medicine 12/06/22 Justin Rojo FNP [address] [place] [address] Nurse Practitioner Family Medicine 05/05/23 documented as of this encounter
== END 2024-11-11 13:21 | disposition home or self-care (01) ==
LOC: HO.HCS 12:44
PROVIDERS: PCP Student in an Organized Health Care Education/Training Program; Visit Provider Nurse Practitioner Family
DX: I95.1 Orthostatic hypotension (principal); I10 Essential (primary) hypertension
CPT/HCPCS: 99213

== ENCOUNTER → 2024-11-11 12:43 | Outpatient (BNVA) | payer MEDICAID, SELFPAY | PROVIDERS: PCP Student in an Organized Health Care Education/Training Program; Visit Provider Nurse Practitioner Family | DX: I10 Essential (primary) hypertension (principal); I95.1 Orthostatic hypotension | CPT/HCPCS: 99212 ==

== ENCOUNTER 2024-12-07 07:39 | Day surgery (SDC) | payer MEDICAID, SELFPAY ==
[2024-12-02 14:45] VITALS: BMI 35.3
--- NOTE | 2024-12-06 08:33 | HO.ANESPROP2 ---
Documented by User: Ct Dickerson NP 12/06/24 08:34 HPI - Anesthesia Eval Consult details Narrative: 54yo F for Colonoscopy Anesthesia Pre-Procedure Meds Is the patient on any of the following meds?: GLP1/DPP4 PMFSH Active Problems Active Problems: All Active Problems Orthostatic hypotension (Acute) Abdominal pain (Acute) Acid reflux (Acute) Tendonitis of left rotator cuff (Acute) Arthritis of left shoulder region (Acute) Screen for sexually transmitted diseases (Acute) Cervical cancer screening (Acute) Well woman exam with routine gynecological exam (Acute) Pelvic pain (Acute) Myoma (Acute) Complex cyst of left ovary (Acute) Arthritis of left knee (Acute) Menorrhagia (Acute) Well woman exam (Acute) Tubular adenoma of colon (Acute) Esophageal ulcer (Acute) Chronic superficial gastritis with hemorrhage (Acute) Anemia (Chronic) HTN (hypertension) (Acute) S/P partial hysterectomy (Acute) Morbid obesity (Acute) Umbilical hernia (Acute) Past Medical History Medical History Tubular adenoma Gastritis HTN (hypertension) Morbid obesity Anemia IBS (irritable bowel syndrome) Family History Family History Father Prostate cancer Maternal Aunt Breast cancer Brother Prostate cancer Family history of problems with anesthesia: No Surgical History Surgical History Hx of umbilical hernia repair S/P partial hysterectomy H/O right knee surgery Hx of section Tubal ligation status Hx of laparoscopic gastric banding History of Problems with Anesthesia: No Social History Social History Household Members: None Housing: Apartment Alcohol intake: never Patient Tobacco Use Status: Never used Tobacco Have you been hit, kicked, punched, or otherwise hurt by someone within the past year? If so, by whom?: No Advance Directives: No Advance Directives Information Provided: Yes service: No Current occupational status: disabled Current occupation: rt handed Meds Allergies Allergy/AdvReac Type Severity Reaction Status Date / Time oxycodone (From PERCOCET) Allergy Intermediate HALLUCINATI Verified 11/11/24 12:56 ONS Home Medications ?Medication ?Instructions ?Recorded ?Confirmed ?Last Taken ?Type famotidine 20 mg tablet 20 mg PO DAILY 08/21/20 12/07/24 Unknown History sertraline 25 mg tablet 25 mg PO DAILY 08/21/20 12/07/24 Unknown History amlodipine 2.5 mg tablet 2.5 mg PO QAM 04/27/24 12/07/24 Unknown History bupropion HCl 300 mg 24 hr tablet, 300 mg PO DAILY 04/27/24 12/07/24 Unknown History extended release hydroxyzine HCl 25 mg tablet 25 - 50 mg PO Q6H PRN anxiety 04/27/24 12/07/24 Unknown History ketotifen fumarate 0.025 % (0.035 1 drp ophthalmic (eye) Q12H 04/27/24 12/07/24 Unknown History %) eye drops tirzepatide (weight loss) 2.5 2.5 mg subcut QWEEK 04/27/24 12/07/24 11/22/24 History mg/0.5 mL subcutaneous pen injector (Zepbound) furosemide 20 mg tablet (Lasix) 20 mg PO DAILY PRN fluid retention 11/11/24 12/07/24 Unknown History Exam Height,Weight and Vital Signs: Height 5 ft 1 in Weight 84.822 kg Assessment and Plan Assessment Anesthesia Assessment: Chart Reviewed Final Anesthetic Review Family History of Problems with Anesthesia: No History of Problems with Anesthesia: No Documented by User: Dena Teixeira MD 12/07/24 10:08 [facility] Past Medical History Medical History Tubular adenoma Gastritis HTN (hypertension) Morbid obesity Anemia IBS (irritable bowel syndrome) Family History Family History Father Prostate cancer Maternal Aunt Breast cancer Brother Prostate cancer Surgical History Surgical History Hx of umbilical hernia repair S/P partial hysterectomy H/O right knee surgery Hx of section Tubal ligation status Hx of laparoscopic gastric banding Social History Social History Household Members: None Housing: Apartment Alcohol intake: never Patient Tobacco Use Status: Never used Tobacco Have you been hit, kicked, punched, or otherwise hurt by someone within the past year? If so, by whom?: No Advance Directives: No Advance Directives Information Provided: Yes service: No Current occupational status: disabled Current occupation: rt handed Meds Allergies Allergy/AdvReac Type Severity Reaction Status Date / Time oxycodone (From PERCOCET) Allergy Intermediate HALLUCINATI Verified 11/11/24 12:56 ONS Home Medications ?Medication ?Instructions ?Recorded ?Confirmed ?Last Taken ?Type famotidine 20 mg tablet 20 mg PO DAILY 08/21/20 12/07/24 Unknown History sertraline 25 mg tablet 25 mg PO DAILY 08/21/20 12/07/24 Unknown History amlodipine 2.5 mg tablet 2.5 mg PO QAM 04/27/24 12/07/24 Unknown History bupropion HCl 300 mg 24 hr tablet, 300 mg PO DAILY 04/27/24 12/07/24 Unknown History extended release hydroxyzine HCl 25 mg tablet 25 - 50 mg PO Q6H PRN anxiety 04/27/24 12/07/24 Unknown History ketotifen fumarate 0.025 % (0.035 1 drp ophthalmic (eye) Q12H 04/27/24 12/07/24 Unknown History %) eye drops tirzepatide (weight loss) 2.5 2.5 mg subcut QWEEK 04/27/24 12/07/24 11/22/24 History mg/0.5 mL subcutaneous pen injector (Zepbound) furosemide 20 mg tablet (Lasix) 20 mg PO DAILY PRN fluid retention 11/11/24 12/07/24 Unknown History Exam Airway Mallampati Class: II TM Dist: >3cm Neck ROM: Full Heart: rrr Lungs: cta Assessment and Plan Assessment Anesthesia Assessment: Anesthesia Plan Discussed Final Anesthetic Review NPO: Yes ASA Class: III Final Preanesthetic Review: No Changes in Pt Med Stat, Meds/Allgs Chart Reviewed, Consent Obtained/Reviewed and Anes Risks/Benef Reviewed Patient Risk: Intermediate Procedure Risk: Low Anesthetic Plan Anesthetic Plan: MAC: Disposition: Standard PACU
[2024-12-07 08:10] VITALS: BP 122/73; PULSE 67; RESP 18; TEMP 36.3; O2SAT 99; BMI 35.0
[2024-12-07] MEDS: Lactated Ringers 1,000 ML 100 ML IVCONT (08:31)
--- NOTE | 2024-12-07 09:41 | P.HPSUR_ITS ---
Pre-Procedural Eval Section A - 24 Hr Update-Section A only Date of Service: 12/07/24 Section B - Complete if H&P > 30 days Chief Complaint: Encounter for screening for malignant neoplasm of Relevant Family History (Specify if Yes): No Relevant Social History: None Present Medications: see Short Stay Collaborative assessment Medical History: Significant History (Left inguinal hernia (09/06/22) Tubular adenoma Gastritis HTN (hypertension) Morbid obesity Anemia IBS (irritable bowel syndrome)) History of Previous Operations: Relevant previous surgery/procedure and date(s) ( Umbilical hernia S/P partial hysterectomy H/O right knee surgery Hx of section Tubal ligation status Hx of laparoscopic gastric banding) Allergies: Allergies Allergy/AdvReac Type Severity Reaction Status Date / Time oxycodone (From PERCOCET) Allergy Intermediate HALLUCINATI Verified 11/11/24 12:56 ONS Review of Systems Sugical H&P ROS: Negative: Constitution, Cardiovascular, Respiratory, Neurological, Psychiatric, Hem-Onc, Allergic/Immunologic, Gastrointestinal, G enitourinary, Musculoskeletal, Integumentary, Endocrine and Eyes/Ears/Nose/Throat Exam Surgical H&P Exam: Normal: HEENT, Normal: Heart, Normal: Lungs, Normal: Extremities, Normal: Abdomen, Normal: Skin and Normal: Neurological Plan Diagnosis/Plan: Unchanged I have reviewed the history and physical and performed a pertinent physical examination on my patient. No changes have occurred unless specified. Time Spent With Patient Time: Total time managing care of this patient today ____ minutes.
--- NOTE | 2024-12-07 10:13 | P.OPN-COLO_ITS ---
Colonoscopy Operative Note Operative Note Date of Service: 12/07/24 Narrative: Operative Information Procedure Description: Colonoscopy Indication: screening Anesthesia: MAC COLONOSCOPY Instrument: Olympus variable stiffness pediatric scope 190L Colonoscopy Monitoring: Vital signs and clinical assessment, continuous EKG monitoring, Pulse oximetry, Carbon Dioxide monitoring and blood pressure monitoring were done throughout the procedure. Colon withdrawal time was 12 minutes. Procedure: The patient was placed in the left lateral decubitis position and pre-procedure medications were administered. After a digital rectal examination of the ano-rectum, the video colonoscope was inserted into the rectum and advanced through the colon to the cecum/TI. The colonoscope was slowly withdrawn in a retrograde panoramic fashion and the colon mucosa was carefully examined including a retroflexed view of the rectum. Findings and interventions are described below. Procedure Difficulty: moderate-tortuous colon Findings: Terminal Ileum-normal Cecum:normal Ascending Colon: normal Transverse Colon -normal Descending Colon:normal Sigmoid Colon: normal Rectum: Retroflexion with small internal hemorrhoids seen, grade I with skin tag Anorectum - normal Intervention: none Colon preparation: [place] Bowel Preparation Scale Right colon; 1-2 Transverse colon: 2 Left colon; 2 (0 = Unprepared colon segment with mucosa not seen due to solid stool that cannot be cleared. 1 = Portion of mucosa of the colon segment seen, but other areas of the colon segment not well seen due to staining, residual stool and/or opaque liquid. 2 = Minor amount of residual staining, small fragments of stool and/or opaque liquid, but mucosa of colon segment seen well. 3 = Entire mucosa of colon segment seen well with no residual staining, small fragments of stool or opaque liquid) Impression and Post Procedure Diagnosis: tortuous colon internal hemorrhoids Plan: High fiber diet leaflet Avoid straining at stool, epsom salts and sitz bath, anusol supps or cream Repeat Colonoscopy in 2-3 years due to some areas of fair prep or earlier if clinically indicated Above findings were reviewed with the patient and relevant handouts were provided if indicated.
[2024-12-07 10:16] VITALS: BP 95/51; PULSE 68; RESP 12; TEMP 36.2; O2SAT 98
[2024-12-07 10:31] VITALS: BP 103/57; PULSE 62; RESP 16; TEMP 36.3; O2SAT 100
== END 2024-12-07 11:32 | disposition home or self-care (01) ==
PROVIDERS: PCP Student in an Organized Health Care Education/Training Program; Visit Provider Internal Medicine Gastroenterology
PROC: 0DJD8ZZ Inspection of Lower Intestinal Tract, Via Natural or Artificial Opening Endoscopic (ICD-10-PCS; CPT 45378; principal; 2024-12-07 11:00)
DX: Z12.11 Encounter for screening for malignant neoplasm of colon (principal); K56.2 Volvulus; K64.0 First degree hemorrhoids; K64.4 Residual hemorrhoidal skin tags; Z86.0101 Personal history of adenomatous and serrated colon polyps; I10 Essential (primary) hypertension; D64.9 Anemia, unspecified; K21.9 Gastro-esophageal reflux disease without esophagitis; E66.9 Obesity, unspecified; Z68.38 Body mass index [BMI] 38.0-38.9, adult
CPT/HCPCS: 45378; J2003; J2704

== ENCOUNTER → 2024-12-07 07:39 | Outpatient (BNV) | payer MEDICAID, SELFPAY | PROVIDERS: PCP Student in an Organized Health Care Education/Training Program; Visit Provider Internal Medicine Gastroenterology | DX: Z12.11 Encounter for screening for malignant neoplasm of colon (principal); K64.8 Other hemorrhoids | CPT/HCPCS: 45378 ==

== ENCOUNTER 2025-02-14 09:38 | Outpatient (AMB) | payer MEDICAID, SELFPAY ==
--- OUTSIDE RECORDS SUMMARY | 2025-02-09 10:45 | XMS_ITS | Encounter Summary ---
Author Organization [employer] Address [address] [facility] [address] [place] [address] Care Team Providers Care Workforce Investment Act Career Manager Name Role Phone Linette Ventura MD Primary Care Pro vider Justin Rojo Unavailable Unavailable Encounter Details Date Type Department Care Team (Late st Contact Info) Description 02/09/2025 10:45 AM EDT Office Visit [facility] MEDICINE [address] [place] [address] Linette Ventura MD [address] [place] [address] Annual physical exam (Primary Dx); Hypertension, unspecified type; Class 3 severe obesity due to excess calories without serious comorbidity with body mass index (BMI) of 45.0 to 49.9 in adult; Health care maintenance; Gastroesophageal reflux disease with esophagitis, unspecified whether hemorrhage; Anxiety and depression; Edema of lower extremity; Lymphedema Social History Tobacco Use Types Packs/Day Years Used Date Smoking Tobacco: Never Passive Smoke Exposure: Never Smokeless Tobacco: Never Tobacco Cessation:Counseling Given: Not Answered Alcohol Use Standard Drinks/Week Comments Yes 0 (1 standard drink = 0.6 oz pur e alcohol) social Depression Answer Date Recorded Patient Health Questionnaire-9 Score 0 02/09/2025 Patient Health Questionnaire-9 Score 0 02/09/2025 Last PHQ-9: Questionnaire Data Not on file 0 02/09/2025 Housing Stability Answer Date Recorded What is [...] Date Recorded Patient Health Questionnaire-2 Score 0 02/09/2025 Internet Access Answer Date Recorded Internet Access Q1 Yes 01/30/2024 Internet Access Q2 Not on file 01/30/2024 Comments Unknown Sex and Gender Information Value Date Recorded Sex Assigned at Female 04/01/2022 10:17 AM EDT Legal Sex Female 10:17 AM EDT Gender Identity Female 04/01/2022 10:17 AM EDT Sexual Orientation Straight 01/22/2023 10 :52 AM EDT documented as of this encounter Last Filed Vital Signs Vital Sign Reading Time Taken Comments Blood Pressure 108/78 02/09/2025 11:35 AM EDT Pulse 80 02/09/2025 11:35 AM EDT Temperature 36.4 C (97.5 F) 02/09/2025 11:35 AM EDT Respiratory Rate 20 02/09/2025 11:35 AM EDT Oxygen Saturation - - Inhaled Oxygen Concentration - - Weight 78 kg (172 lb) 02/09/2025 11:35 AM EDT Height 154.9 cm (5' 1 ) 02/09/2025 11:35 AM EDT Body Mass Index 32.5 02/09/2025 11:35 AM EDT documented in this encounter Functional Status * Over the past 2 weeks, how often have you been bothered by any of the following problems? Question Answer Date of Assessment Author Patient Health Questionnaire -2 Score 0 02/09/2025 11:36 AM EDT Toya Boogie MA * Little interest or pleasure in doing things Answer Date of Assessment Author Not at all 02/09/2025 11:36 AM Toya Leos MA * Feeling down, depressed, or hopeless Answer Date of Assessment Author Not at all 02/09/2025 11:36 AM EDT Toya Boogie MA * Trouble falling or staying asleep, or sleeping too much Answer Date of Assessment Author Not at all 02/09/2025 11:36 AM Toya Leos MA * Feeling tired or having little energy Answer Date of Assessment Author Not at all 02/09/2025 11:36 AM RENZOT Toya Boogie MA * Poor appetite or overeating Answer Date of Assessment Author Not at all 02/09/2025 11:36 AM Toya Leos MA * Feeling bad about yourself - or that you are a failure or have let yourself or your family down Answer Date of Assessment Author Not at all 02/09/2025 11:36 AM Toya Leos MA * Trouble concentrating on things, such as reading the newspaper or watching television Answer Date of Assessment Author Not at all 02/09/2025 11:36 AM Toya Leos MA * Moving or speaking so slowly that other people could have noticed? Or the opposite - being so fidgety or restless that you have been moving around a lot more than usual. Answer Date of Assessment Author Not at all 02/09/2025 11:36 AM Toya Leos MA * Thoughts that you would be better off or hurting yourself in some way Answer Date of Assessment Author Not at all 02/09/2025 11:36 AM Toya Leos MA * Patient Health Questionnaire-9 Score Answer Date of Assessment Author 0 02/09/2025 11:36 AM Toya Leos MA * Over the last 2 weeks, how often have you been bothered by any of the following problems? Question Answer Date of Assessment Author Feeling nervous, anxious, or on edge 0 02/09/2025 11:36 AM EDT Toya Boogie MA Not being able to stop or co ntrol worrying 0 02/09/2025 11:36 AM EDT Toya Boogie MA Worrying too much about diff erent things 0 02/09/2025 11:36 AM EDT Toya Boogie MA Trouble relaxing 0 02/09/2025 11:36 AM EDT Toya Boogie MA Being so restless that it is hard to sit still 0 02/09/2025 11:36 AM EDT Toya Boogie MA Becoming easily annoyed or irritable 0 02/09/2025 11:36 AM EDT Toya Boogie MA Feeling afraid as if somethi ng awful might happen 0 02/09/2025 11:36 AM EDT Toya Boogie MA LIANNE-7 Total Score 0 02/09/2025 11:36 AM EDT Toya Boogie MA documented as of this encounter Progress Notes * Linette Levy MD - 02/09/2025 10:45 AM EDT Subjective Patient ID: Carla Grant is a 54 y.o. female who presents for annual exam HPI 54 y old F with PMX HTN ,morbid obesity gastric s/p bypass surgery as well as lap banding , GERD, IBS, hx of iron deficiency anemia secondary to bariatric surgery,depression/anxiety, mild HLD Comes for annual exam Reports feeling well , noted significant weight loss since started on Tirzepatide. Currently on 15 mg weekly Denies episodes of sweating nor presyncope anymore anymore ------ Assessment and Plan: Health care maintenance -Annual exam done 12/2024 -menopause: s/p partial hysterectomy -pap smear 10/2022 Neg/Neg HPV to repeat in 5 y -MM 07/2024 Negative. -Right: Grouped calcifications in the retroareolar region are not significant change from priors dating back for April 2023. Recommend diagnostic mammography in one year when the patient is due for bilateral mammogram to demonstrate 2 years of stability. BI-RADS 3 - Probablybenign finding(s) - 12 month follow-up -Colonoscopy 11/2024 tortuous colon ,internal hemorrhoids . Plan to Repeat Colonoscopy in 2-3 years due to some areas of fair prep or earlier if clinically indicated -vaccines: s/p Tdap 2018, Covid 19 x2-Biv-,refuse vaccine , shingrix x2 ,Hep B not immune -refuse vaccine . COVID 19 and Flu vaccine offered but refused ----- 03/25/24 vit D 29.5 <--- 16.4-continue weekly vit D -check level ,ordered today HTN Off meds ,controlled since weight loss -BP home normal < 140/90 -EKG 05/2023 NSR , QTc 427, HR 61x' , noted TWI in V1 and V2 -asymptomatic -EKG 01/2024 NSR, HR 63x',QTc 438, TWI From V1-V2-V3 and lead III -ophthalmology seen 10/2023 --pt to call for apt ,per pt was told to f in 2 y -03/25/24 Microalb neg -continue diet,exercise -off meds ,continue to monitor HLD 03/25/24 LDL 111<----Trig 81,total ch 192, LDL 125, HDL 51 ASCVS 2.4% not rec for statins --will repeat lipids Morbid obesity -lost 70 pounds since last 2 y - planning for plastic surgery for excess of skin BMI 32<---35<--38<---<--- 42<--44.7 Hx of S/p gastric s/p bypass surgery as well as lap banding > 20 y ago -apt w bariatric on 02/17/2025 -pt f w bariatric surgeon -Dr Kowalski at [facility] ,on Zepbound prescribed by surgeon [id number] mg weekly GERD/IBS -EGD 2019: moderate esophagitis ,chronic erosion with small amount of blood . 4- 5 mm polyp in stomach. Bx showed chronic gastritis and hyperplastic changes from polyp -pt on chronic PPIs and famotidine -takes PPI in am and famotidine PRN using at least daily --sent today ppi daily as pt is taking only daily and famo HS prn only instead BID -pt already taking like that ,advised to try to hold on H2 blockers if possible -f already w GI Depression/anxiety -used to f w Justin Knight --seen 11/2023 --- stable and doing well emotionally. Continue Bupropion XL 300 mg daily and Hydroxyzine 25 mg 1-2 q 6 h prn anxiety. Since this provider will be retiring, patient is now referred back to her PCP for further medication management. [facility] All her questions were answered and I have wished her well. She agrees with the plan. -not f w psychiatrist -not following w therapist any more -refuse ,states feeling well -continue Wellbutrin 300 mg daily -pt taking hydroxyzine 2 tab BID every day , explained pt possible [employer] and this clearly shows pt no controlled w anxiety ,will try Buspirone 5 mg daily for 7 days then to increase BID , and pt will try to decrease use of hydroxyzine , if needed can increase Buspirone at next apt Left shoulder pain Reports to be chronic Noted decrease ROM w no signs of inflammation -Left shoulder XR 01/29/2023: Moderate-severe glenohumeral joint osteoarthritis. Question acromioclavicular distance widening. Dedicated AC joint x-rays for further evaluation as clinically indicated. -tylenol prn -seen already by orthopedic---was offered inj but refusing -px motrin -advised to avoid for GI hx of and PT completed w mild improvement -pt requesting today plastic surgeon yoshi because thinks in part pain in ar,s/shoulders is associated w excessive extra fat tissue --referred to plastic surgeon -already in eval Abdominal mass sensation Reports right lower abdominal mass sensation described as superficial w discomfort -Abd wall US 06/19/2023 : No discrete hernia seen at the right lower quadrant abdominal plasty scar or right upper quadrant laparoscopic cholecystectomy scars. Laparoscopic band port noted. -Likely what pt is feeling is the port -explained to pt LE edema -lymphadema Currently normal exam ,states occurs at end of day Likely from venous insufficiency .obesity -takes lasix for leg swelling -reports takes it couple times a month ,denies hx of CHF -States had normal echocardiogram with cardiology -pt to start using compressions stockings request to [place] staff today for 15-20 mmHg -Advised to decrease lasix as possible given does not seem to help in this - takes mainly twice a month -continue w weight loss Presyncope -resolved -EKG 03/2024 NSR, HR 63x',QTc 438, TWI From V1-V2-V3 and lead III -Cards seen 10/2024 for Syncope and collapse w positive Tilt-table test ,was rec to stop amlodipine and to decrease lasix use States using maybe 2 times a month lasix and symptoms resolved after stopped amlodipine Due to weight loss not needing more BP meds Review of Systems Constitutional: Negative. Negative for chills, fatigue and fever. HENT: Negative. Eyes: Negative. Respiratory: Negative. Cardiovascular: Negative. Gastrointestinal: Negative. Genitourinary: Negative. Musculoskeletal: Negative. Neurological: Negative. Hematological: Negative. Psychiatric/Behavioral: Positive for behavioral problems. Negative for suicidal ideas. The patient is nervous/anxious. Objective BP 108/78 (BP Location: Left arm, Patient Position: Sitting, BP Cuff Size: Large adult) Pulse 80 Temp 97.5 ??F (36.4 ??C) (Temporal) Resp 20 Ht 5' 1 (1.549 m) Wt 172 lb (78 kg) BMI 32.50kg/m?? Physical Exam Vitals reviewed. Constitutional: Appearance: Normal appearance. She is obese. HENT: Head: Normocephalic and atraumatic. Right Ear: Tympanic membrane and ear canal normal. Left Ear: Tympanic membrane and ear canal normal. Mouth/Throat: Mouth: Mucous membranes are moist. Pharynx: Oropharynx is clear. Eyes: Extraocular Movements: Extraocular movements intact. Pupils: Pupils are equal, round, and reactive to light. Cardiovascular: Rate and Rhythm: Normal rate and regular rhythm. Heart sounds: Normal heart sounds. No murmur heard. Pulmonary: Effort: Pulmonary effort is normal. Breath sounds: Normal breath sounds. Abdominal: General: Abdomen is flat. Bowel sounds are normal. Palpations: Abdomen is soft. Musculoskeletal: General: Normal range of motion. Cervical back: Normal range of motion and neck supple. Skin: General: Skin is warm. Neurological: General: No focal deficit present. Mental Status: She is alert and oriented to person, place, and time. Mental status is at baseline. Psychiatric: Mood and Affect: Mood normal. Behavior: Behavior normal. Assessment/Plan Problem List Items Addressed This Visit Anxiety and depression Relevant Medications busPIRone (Buspar) 5 MG tablet Edema of lower extremity Gastroesophageal reflux disease Relevant Medications omeprazole (PriLOSEC) [address] capsule famotidine (Pepcid) 20 MG tablet Health care maintenance Obesity Relevant Medications Zepbound 15 MG/0.5ML solution auto-injector Hypertension Lymphedema Other Visit Diagnoses Annual physical exam - Primary Relevant Orders Albumin, Random Urine W/Creatinine CBC auto differential Chlamydia/Trichomonas/Neisseria gonorrhoeae, PCR, Urine Comprehensive Metabolic Panel Hemoglobin A1c Hepatitis B surface antigen, EIA Hepatitis C Antibody with Reflex to HCV, RNA, Quantitative, Real-Time PCR HIV-1/2 Antigen and Antibodies, Fourth Generation, with Reflexes Lipid Panel, Standard Syphilis Screen TSH with Reflex to Free T4 Vitamin D, 25-Hydroxy, Total, Immunoassay documented in this encounter Plan of Treatment Scheduled Orders Name Type Priority Associated Diagnoses Orde r Schedule Albumin, Random Urine W/Creatinine Lab Routine Annual physical exam Expected: 02/09/2025 (Approximate), Expires: 02/09/2026 CBC auto differential Lab Routine Annual physical exam Expected: 02/09/2025 (Approximate), Expires: 02/09/2026 Chlamydia/Trichomonas/Neiss eria gonorrhoeae, PCR, Urine Lab Routine Annual physical exam Ordered: 02/09/2025 Comprehensive Metabolic Panel Lab Routine Annual physical exam Expected: 02/09/2025 (Approximate), Expires: 02/09/2026 Hemoglobin A1c Lab Routine Annual physical exam Expected: 02/09/2025 (Approximate), Expires: 02/09/2026 Hepatitis B surface antigen, EIA Lab Routine Annual physical exam Expected: 02/09/2025 (Approximate), Expires: 02/09/2026 Hepatitis C Antibody with Reflex to HCV, RNA, Quantitative, Real-Time PCR Lab Routine Annual physical exam Expected: 02/09/2025 (Approximate), Expires: 02/09/2026 HIV-1/2 Antigen and Antibodies, Fourth Generation, with Reflexes Lab Routine Annual physical exam Expected: 02/09/2025 (Approximate), Expires: 02/09/2026 Lipid Panel, Standard Lab Routine Annual physical exam Expected: 02/09/2025 (Approximate), Expires: 02/09/2026 Syphilis Screen Lab Routine Annual physical exam Expected: 02/09/2025 (Approximate), Expires: 02/09/2026 TSH with Reflex to Free T4 Lab Routine Annual physical exam Expected: 02/09/2025 (Approximate), Expires: 02/09/2026 Vitamin D, 25-Hydroxy, Total, Immunoassay Lab Routine Annual physical exam Expected: 02/09/2025 (Approximate), Expires: 02/09/2026 documented as of this encounter Visit Diagnoses Diagnosis Annual physical exam- Primary Routine general medical examination at a health care facility Hypertension, unspecified type Class 3 severe obesity due to excess calories without serious comorbidity with body mass index (BMI) of 45.0 to 49.9 in adult Health care maintenance Gastroesophageal reflux disease with esophagitis, unspecified whether hemorrhage Anxiety and depression Edema of lower extremity Lymphedema Other noninfectious lymphedema documented in this encounter Additional Health Concerns Assessment Noted Time PHQ-9 Depression Total Score: 0 02/10/20 25 11:36 AM EDT documented as of this encounter Care Teams Workforce Investment Act Career Manager Relationship Specialty Start Date End Date Linette Ventura MD [address] [place] [address] PCP - General Internal Medicine 12/06/22 Justin Rojo FNP [address] [place] [address] Nurse Practitioner Family Medicine 05/05/23 documented as of this encounter
[2025-02-14 09:53] VITALS: BP 90/62; PULSE 60; BMI 32.7
--- NOTE | 2025-02-14 09:53 | MHC.OFFVIS ---
Vital Signs 02/14/25 09:53 Height 5 ft 1 in Weight 173 lb 4.533 oz BMI 32.7 BP 90/62 Blood Pressure Location Lt brachial Position Sitting Pulse 60 Pulse Source Pulse Oximeter Intake Visit Reasons: 3m follow up Reservation Clerk Required: No Allergies oxycodone (From PERCOCET) Allergy (Intermediate, Verified 02/14/25 09:55) HALLUCINATIONS Medication List - Last Reconciled 02/14/25 by Tracie Birmingham, CELE-C bupropion HCl XL 300 mg PO DAILY buspirone 5 mg PO BID famotidine 20 mg PO DAILY furosemide (Lasix) 20 mg PO DAILY PRN hydroxyzine HCl 25 - 50 mg PO Q6H PRN ketotifen fumarate 0.025%(0.035%) 1 drp ophthalmic (eye) Q12H omeprazole 20 mg PO DAILY sertraline 25 mg PO DAILY tirzepatide (weight loss) (Zepbound) 15 mg subcut QWEEK HPI HPI 3m follow up: Details: Janie is a 54-year-old female with past medical history of mild obesity, hypertension, orthostatic hypotension who presents for follow-up. Amlodipine was stopped last visit. Today she reports she has been doing well since her last visit in October. She has not been experiencing the lightheadedness or any presyncope. She has had no syncope or falls. No new symptoms of chest discomfort, shortness of breath, no heart palpitations. She has increased her fluid intake and tries to remain physically active. She has been taking her Lasix only once weekly for leg edema. She is being fitted later today for compression stockings. No cardiac concerns at this time. [facility] Medical History Tubular adenoma Gastritis HTN (hypertension) Morbid obesity Anemia IBS (irritable bowel syndrome) Surgical History Hx of umbilical hernia repair S/P partial hysterectomy H/O right knee surgery Hx of section Tubal ligation status Hx of laparoscopic gastric banding Family History Father Prostate cancer Maternal Aunt Breast cancer Brother Prostate cancer Social History Household Members: None Housing: Apartment Alcohol intake: never Patient Tobacco Use Status: Never used Tobacco service: No Current occupational status: disabled Current occupation: rt handed Female Reproductive History Menstrual Age of Menarche: 11 Review of Systems Const All systems reviewed & are unremarkable except as noted in HPI and below ENT Denies dizziness Card Denies chest pain, Denies chest pain at rest, Denies chest pain with activity, Denies rapid heart rate, Denies pedal edema, Denies edema, Denies leg edema, Denies lightheadedness, Denies palpitations, Denies dyspnea, Denies dyspnea on exertion and Denies orthopnea Resp Denies cough, Denies dyspnea and Denies dyspnea on exertion GI Denies hematochezia and Denies change in stool character Musc Denies abnormal gait, Denies limited range of motion, Denies muscle cramps, Denies muscle weakness, Denies numbness, Denies radiating pain into limb, Denies stiffness and Denies tingling Neuro Denies abnormal gait, Denies dizziness, Denies numbness and Denies tingling Endo Denies palpitations Physical Exam Vital Signs: Last Vital Signs Pulse 60 02/14/25 09:53 BP 90/62 02/14/25 09:53 BMI result Body Mass Index 32.7 Const General: cooperative, healthy appearing, comfortable and no acute distress Orientation/consciousness: patient oriented x3 Neck Neck: Yes normal visual inspection Resp Effort & Inspection: normal respiratory effort Auscultation: clear to auscultation bilaterally, no rales, no rhonchi and no wheezes Cardio Rate: regular rate Rhythm: regular rhythm Heart sounds: S1 normal heart sound present, S2 normal heart sound present, no gallops, no murmurs and no rubs Neuro General: patient oriented x3 Extrem General: Yes normal to inspection, No no pedal edema and No calf tenderness Psych Appearance: grossly normal Mental Status: mental status grossly normal Speech and movement: Normal speech and movement present Assessment & Plan Assessment & Plan (1) Orthostatic hypotension: Code(s): I95.1 - Orthostatic hypotension Category: Medical Plan: Prior reports of lightheadedness and presyncopal type event. She underwent cardiac testing including an echocardiogram which showed normal EF, no valve abnormalities and no regional wall motion abnormalities. She wore a cardiac event monitor for 22.7 days showing sinus rhythm with no significant pauses, rare PVCs, heart rate range 50 to 120 with average 75. A tilt-table test was done on 10/05/2024 showing orthostatic hypotension. She had been on low-dose amlodipine which was stopped last visit. She has increased her fluid and is now doing well. Continue with good fluid intake, approximately 64 oz daily. Continue adding salt to diet, compression stocking use, physical activity as tolerated. Call if she is having problems with recurrent symptoms. Periodic home blood pressure checks if able. Cardiology follow-up 1 year, sooner if needed. (2) HTN (hypertension): Code(s): I10 - Essential (primary) hypertension Category: Medical Plan: Reported history of hypertension, ideal Blood pressure goal less than 130/80. Amlodipine was stopped last visit after findings of low blood pressure readings and diagnosis of orthostatic hypotension. Currently doing well. Blood pressure remains on the low side but asymptomatic. Plan I discussed with the patient the importance of managing orthostatic hypotension by discontinuing blood pressure medication and increasing fluid intake. We also talked about using compression stockings to prevent leg swelling and the role of salt in maintaining blood pressure. Follow-up is scheduled for one year, with instructions to return sooner if symptoms worsen. Patient Instructions: - Drink plenty of fluids daily, including water and electrolyte drinks. - Use salt in your diet to help maintain blood pressure. - Wear compression stockings to prevent leg swelling. - Schedule a follow-up appointment in one year or sooner if symptoms worsen. Patient was informed and verbally consented to the use of an ambient scribe for clinic note documentation during this visit. Visit time spent on chart review, interview, assessment, orders, documentation. Coding Level of Care Code Est Pt Level 3 (02246) Complex EM visit Add On G2211 Diagnoses Orthostatic hypotension I95.1 HTN (hypertension) I10 Time Spent (min) 25
--- OUTSIDE RECORDS SUMMARY | 2025-02-14 11:40 | XMS_ITS | Encounter Summary ---
Author Organization [employer] Address [address] [facility] 7t [place] [address] Care Team Providers Care Breast Splitter Name Role Phone Tigist Bartholomew MOTOR REBUILDER Primary Care Provider Linette Olson MD Primary Care Pro vider Justin Rojo MOTOR REBUILDER Unavailable Unavailable Encounter Details Date Type Department Care Team (Late st Contact Info) Description 07/03/2022 Orders Only [facility] [address] [place] [address] Carly Hollingsworth LPN Social History Tobacco Use [...] documented in this encounter Plan of Treatment Not on file documented as of this encounter Procedures Procedure Name Priority Date/Time Associated Diagnosis Comments HEPATITIS C ANTIBODY REFLEX Routine 01/29/2023 10:21 AM EDT HIV ANTIBODY/ANTIGEN ([place] DPH) Routine 01/29/2023 10:21 AM EDT VITAMIN [...] surface antigen, EIA (01/29/2023 10:21 AM EDT) Hepatitis B Surface Ag Negative Negative [facility] 01/29/2023 10:2 1 AM EDT 01/29/2023 11:25 AM EDT us Linette Levy MD LAB BLOOD ORDERAB LES Final Result [facility] [address] [place] [address] [phone] * HIV Ab/Ag ([place] DPH) (01/29/2023 10:21 AM EDT) [facility] HIV AB/AG Nonreactive Nonreactive [facility] Comment:HIV-1 p24 Ag and/or HIV-1/HIV-2 Ab not detected.A test result that is nonreactive does not exclude thepossibility of exposure to or infection with HIV-1 and/orHIV-2. Nonreactive results in this assay for individualswith prior exposure to HIV-1 and/or HIV-2 may be due toantigen and antibody levels that are below the limit ofdetection of this assay.The [employer] HIV Ag/Ab Combo assay result andsupplemental assay results should be interpreted inconjunction with the patient's clinical presentation,history and other laboratory results. If the results areinconsistent with clinical evidence, additional testing issuggested to confirm the result. 01/29/2023 10:2 1 AM EDT 01/29/2023 11:25 AM EDT us Linette Levy MD LAB BLOOD ORDERAB LES Final Result Performing Organization Address City/[facility]/ZIP Co de Phone Number [facility] [address] [place] [phone] * Hepatitis C Antibody Reflex (01/29/2023 10:21 AM EDT) [facility] Hepatitis C Antibody Nonreactive Nonreactive [facility] Comment:Antibodies to HCV no t detected; does not exclude early acuteHCV infection. 01/29/2023 10:2 1 AM EDT 01/29/2023 11:25 AM EDT Linette Levy MD LAB BLOOD ORDERAB LES Final Result Performing Organization Address City/[facility] [[email or web address]] Co de Phone Number [facility] [address] [place] [phone] * Vitamin D, 25-Hydroxy, Total, Immunoassay (01/29/2023 10:21 AM EDT) Vitamin D 25-OH Total 16.4 >30 ng/mL [facility] Comment:Health Based Referen ce Values*< 20 ng/mL [id number] ng/mL Insufficient> 30 ng/mL Sufficient*Merissa OQUENDO. N [...] MD LAB BLOOD ORDERAB LES Final Result [facility] [address] [place] [phone] * Pap Smear (10/30/2022 2:48 PM EDT) 10/30/2022 2:48 PM EDT 10/31/2022 8:30 AM EDT Narrative [facility] - 11/18/2022 1:18 PM EDT ----- ------- Name: Carla Grant Age/Sex: 52/F : 1970 Unit#: [id number] Attend Dr: Marilia Julien CNM Re10/30/22 Status: DEP REF Location: [facility] Disch: ----- ------- SPEC : [id number] RECD: 10/31/22 STATUS: KAROLINA ALVAREZ NUM: [id number] HEMALATHA: 10/30/22-1447 [facility] DR: WilyMarilia [facility] ENTERED: 10/31/22 SP TYPE: Pap Smr OTHR DR: Tigist Bartholomew ORDERED: Pap Smear Interpretation Satisfactory for evaluation. Negative for intraepithelial lesion or malignancy. HPV mRNA E6/E7: NOT DETECTED This assay detects E6/E7 viral messenger RNA (mRNA) from 14 high-risk HPV types (16, 18, 31, 33, 35, 39, 45, 51, 52, 56, 58, 59, 66, 68) HPV testing performed by [employer], [place], [place]. See reference laboratory portion of the EMR for entire report. Clinical Information LMP: Unknown date Previous PAP test: 07/15/18, Unknown findings Material Received ThinPrep-Vaginal Copies To: Marilia Julien [address] Patterson [address] [place] [phone] Tigist BartholomewP [address] [place] [address] ----- ------- Signed (signature on file) Sruthi Mondragon Minnie 11/18/22 1318 ----- ------- END OF REPORT [facility] External Provider LAB CYT [facility] ORDERABLES Final Result Performing Organization Address [facility] [[email or web address]] Co de Phone Number [facility] [address] [place] [address] [phone] * HPV mRNA E6/E7 w/Reflex to HPV Genotypes 16, 18/45 (10/30/2022 2:48 PM EDT) Pathologist [facility] HPV nRNA E6/E7 Not Detected Not Detected [facility] Comment:Methodology: Transcr iption-Mediated AmplificationThis assay detects E6/E7 viral messenger RNA (mRNA) from 14high-risk HPV types (16,18,31,33,35,39,45,51,52,56,58,59,66,68).Cervical sources are required for HPV testing.If a vaginal source from a patient who has had atotal hysterectomy with removal of cervix wassubmitted, please contact the testing laboratoryfor alternative testing options.For additional information, please refer [email or web address](This link if provided for information/educational purposes only.)THIS TEST WAS PERFORMED AT:[employer] [place] [id number] GATES MD HPV mRNA E6/E7 [facility] HPV 16 RNA [facility] HPV 18/45 RNA [facility] 10/30/2022 2:48 PM EDT 10/31/2022 8:30 AM EDT [facility] External Provider LAB CYT [facility] ORDERABLES Final Result Performing Organization Address [facility]/ZIP Co de Phone Number [facility] [address] [place] [address] [phone] * SureSwab?? Advanced Vaginitis, TMA (10/30/2022 1:31 PM EDT) Trichomonas DNA Probe Negative Negative [facility] Gardnerella DNA Probe Negative Negative [facility] Lydia DNA Probe Negative Negative [facility] 10/30/2022 1:31 PM EDT 10/30/2022 3:57 PM EDT [facility] Exter nal Provider LAB BODY FLUIDS AND STOOLS ORDERABLES Final Result Performing Organization Address [facility] [[email or web address]] Co de Phone Number [facility] [address] [place] [address] [phone] * Chlamydia/N. Gonorrhoeae RNA, TMA, Urogenitial (10/30/2022 1:31 PM EDT) CT PCR NOT DETECTED Not Detect. [facility] Comment:A not detected test result [...] psychologicalconsequences. NG PCR NOT DETECTED Not Detect. [facility] Comment:A not detected test result [...] 1:31 PM EDT 10/30/2022 3:57 PM EDT [facility] - 10/30/2022 6:41 PM EDT Vaginal [facility] Exter nal Provider LAB MICROBIOLOGY - GENERAL ORDERABLES Final Result [facility] [address] [place] [phone] * Gross and Microscopic Level 3 (09/06/2022 8:06 AM EDT) 09/06/2022 8:06 AM EDT 09/06/2022 8:47 AM EDT [facility] - 09/09/2022 1:59 PM EDT ----- ------- Name: Carla Grant Age/Sex: 52/F : 1970 Unit#: [id number] Attend Dr: Fili Adorno MD Re09/06/22 Status: [facility] Location: [facility] Disch: ----- ------- SPEC : [id number] RECD: 09/06/22 STATUS: KAROLINA ALVAREZ NUM: [id number] HEMALATHA: 09/06/22 [facility] DR: Fili Adorno MD ENTERED: 09/06/22 SP TYPE: Surgical OTHR DR: Tigist Bartholomew ORDERED: Gross Micro L3 Diagnosis Omentum (umbilical hernia repair): Fibromembranous and vascular adipose tissue, consistent with omentum. Clinical History Umbilical hernia Microscopic Description Microscopic sections reviewed. Material Received Omentum Gross Description Received in formalin labeled omentum is a 4.5 x 0.5-2.0 x 0.5-1.0 cm sheet of talley- yellow lobular adipose tissue with scant attached cauterize valencia-pink fibromembranous tissue. Sectioning reveals homogeneous talley-yellow lobular fat with scant attached valencia-pink and pink-red fibrous versus fibromembranous tissue. No fleshy, hemorrhagic or necrotic foci are identified. No lymph nodes are identified. Air Bag Buffer sections are submitted in a single cassette labeled A1. CEDS Copies To: Tigist Bartholomew MOTOR REBUILDER [address] [place] [address] Fili Adorno MD [address] [place] [address], 3[address] [place] [address] [email or web address] ----- ------- Signed (signature on file) Kailey Evans 09/09/22 1359 ----- ------- END OF REPORT [facility] External Provider LAB CYT OLOGY ORDERABLES Final Result Performing Organization Address [facility] de Phone Number [facility] [address] [place] [phone] * Creatinine, Serum (07/17/2022 3:18 PM EST) Creatinine, Serum 0.90 0.5 - 1.4 mg/dL [facility] Estimated Glomerular Filt Rate >60 [facility] Comment:NOTE: For -Am erican individuals, multiply the result by 1.210.Chronic Kidney Disease: Estimated GFR < 60 mL/min/1.16g7Dlvnsw Kidney Disease: Estimated GFR < 15 mL/min/1.73m2 07/17/2022 3:18 PM EST 07/17/2022 3:18 PM EST [facility] External Provider LAB BLO OD ORDERABLES Final Result Performing Organization Address [facility] de Phone Number [facility] [address] [place] [phone] * BUN (Blood Urea Nitrogen) (07/17/2022 3:18 PM EST) Urea Nitrogen (BUN) 11 9 - 16 mg/dL [facility] 07/17/2022 3:18 PM EST 07/17/2022 3:18 PM EST [facility] External Provider LAB BLO OD ORDERABLES Final Result Performing Organization Address [facility] de Phone Number [facility] [address] [place] [address] [phone] documented in this encounter Visit Diagnoses Not on filedocumented in this encounter Additional Health Concerns Assessment Noted Time PHQ-9 Depression Total Score: 0 06/13/19 10:39 AM EST documented as of this encounter Care Teams Breast Splitter Relationship Specialty Start Date End Date Tigist Bartholomew FNP PCP - General Family Medicine 12/09/21 12/05/22 Linette Ventura MD [address] [place] [phone] PCP - General Internal Medicine 12/06/22 Justin Rojo FNP [address] [place], [place] [phone] Nurse Practitioner Family Medicine 05/05/23 documented as of this encounter
--- OUTSIDE RECORDS SUMMARY | 2025-02-14 11:40 | XMS_ITS | Encounter Summary ---
Author Organization [employer] Address [address] [facility] 7t [place] [address] Care Team Providers Care School Guidance Counselor Name Role Phone Linette Ventura MD Primary Care Pro vider Justin Rojo Unavailable Unavailable Reason for Visit * Reason Comments Med Refill Encounter Details Date Type Department Care Team (Late st Contact Info) Description 09/14/2024 Refill [facility] [address] [place], [place] [phone] Melanie Zacarias MD [address] [place], [place] [phone] Lower leg edema Social History Tobacco Use Types Packs/Day Years [...] as of this encounter Visit Diagnoses Diagnosis Lower leg edema documented in this encounter Additional Health Concerns Assessment Noted Time PHQ-9 Depression Total Score: 0 01/27/20 24 10:46 AM EDT documented as of this encounter Care Teams School Guidance Counselor Relationship Specialty Start Date End Date Linette Ventura MD [address] [place] [address] PCP - General Internal Medicine 12/06/22 Justin Rojo FNP [address] [place] [address] Nurse Practitioner Family Medicine 05/05/23 documented as of this encounter
--- OUTSIDE RECORDS SUMMARY | 2025-02-14 11:40 | XMS_ITS | Encounter Summary ---
Author Organization [employer] Address [address] [facility] 7t [place] [address] Care Team Providers Care Raw Mill Operator Name Role Phone Linette Ventura MD Primary Care Pro vider Justin Rojo Unavailable Unavailable Reason for Visit * Reason Comments Med Change Request Encounter Details Date Type Department Care Team ([facility] st Contact Info) Description 01/30/2024 Refill [facility] [address] [place] [address] Linette Ventura MD [address] [place] [address] Anxiety and depression Social History Tobacco Use [...] documented as of this encounter Care Teams Raw Mill Operator Relationship Specialty Start Date End Date Linette Ventura MD [address] [place] [address] PCP - General Internal Medicine 12/06/22 Justin Rojo FNP [address] [place] [address] Nurse Practitioner Family Medicine 05/05/23 documented as of this encounter
--- OUTSIDE RECORDS SUMMARY | 2025-02-14 11:40 | XMS_ITS | Encounter Summary ---
Author Organization [employer] Address [address] [facility] 7t [place] [address] Care Team Providers Care Splicing Technician Name Role Phone Tigist Bartholomew COMMERCIAL ADMINISTRATOR Primary Care Provider Linette Olson MD Primary Care Pro vider Justin Rojo Unavailable Unavailable Reason for Visit * Reason Onset Date Comments Referral 10/29/2022 Encounter Details Date Type Department Care Team (Late st Contact Info) Description 10/29/[address] [facility] [address] [place] [address] Tigist Bartholomew FNP Referral Social History Tobacco Use Types Packs/Day [...] Miscellaneous Notes * Telephone Encounter - Shani Galdamez - 10/29/2022 2:02 PM EDT Tc from patient requesting a referral for Dr. Ott for weight loss (by pass/bariatric surgery). Patient states Dr. Ott is now in [facility] and would like to be referred to him. Patient has no other details or phone number, medical writer attempted to get information and was unable to. documented in this encounter Plan of Treatment Not on file documented as of this encounter Visit Diagnoses Not on filedocumented in this encounter Additional Health Concerns Assessment Noted Time PHQ-9 Depression Total Score: 0 08/23/19 10:03 AM EDT documented as of this encounter Care Teams Splicing Technician Relationship Specialty Start Date End Date Tigist Bartholomew FNP PCP - General Family Medicine 12/09/21 12/05/22 Linette Ventura MD [address] [place] [phone] PCP - General Internal Medicine 12/06/22 Justin Rojo FNP [address] [place] [phone] Nurse Practitioner Family Medicine 05/05/23 documented as of this encounter
--- OUTSIDE RECORDS SUMMARY | 2025-02-14 11:40 | XMS_ITS | Encounter Summary ---
Author Organization [employer] Address [address] [facility] [address] [place] [address] Care Team Providers Care Clinical Trials Manager Name Role Phone Linette Ventura MD Primary Care Pro vider Justin Rojo Unavailable Unavailable Reason for Visit * Reason Comments Med Change Request Encounter Details Date Type Department Care Team (Late st Contact Info) Description 10/25/2024 Refill [facility] [address] [place], [place] [phone] Linette Ventura MD [address] [place], [place] [phone] Lower leg edema Social History Tobacco Use [...] documented as of this encounter Care Teams Clinical Trials Manager Relationship Specialty Start Date End Date Linette Ventura MD [address] [place] [address] PCP - General Internal Medicine 12/06/22 Justin Rojo FNP [address] [place] [address] Nurse Practitioner Family Medicine 05/05/23 documented as of this encounter
--- OUTSIDE RECORDS SUMMARY | 2025-02-14 11:40 | XMS_ITS | Encounter Summary ---
Author Organization [employer] Address [address] [facility] 7t [place] [address] Care Team Providers Care Forensic Scientist Name Role Phone Linette Ventura MD Primary Care Pro vider Justin Rojo Unavailable Unavailable Encounter Details Date Type Department Care Team (Latest Contact Info) Description 02/09/2025 Travel Social History Tobacco Use Types Packs/Day Years [...] housing situation today? I have gibran amador 08/31/[address] you li [...] AM EDT documented as of this encounter Functional Status * Over the [...] 11:36 AM EDT Toya Boogie [place] * Feeling down, depressed, or hopeless Answer Date of Assessment Author Not at all 02/09/2025 11:36 AM RENZOT Toya Boogie [place] * Trouble falling or staying asleep, or sleeping too much Answer Date of Assessment Author Not at all 02/09/2025 11:36 AM Toya Leos [place] * Feeling tired or having little energy Answer Date of Assessment Author Not at all 02/09/2025 11:36 AM EDT Toya Boogie MA * Poor appetite or overeating Answer Date of Assessment Author Not at all 02/09/2025 11:36 AM RENZOT Toya Boogie MA * Feeling bad about yourself - [...] 11:36 AM EDT Toya Boogie MA * Thoughts that you would be better off or hurting yourself in some way Answer Date of Assessment Author Not at all 02/09/2025 11:36 AM EDT Toya Boogie MA * Patient Health Questionnaire-9 Score Answer Date of Assessment Author 0 02/09/2025 11:36 AM EDT Toya Boogie MA * Over the last 2 weeks, [...] LIANNE-7 Total Score 0 02/09/2025 11:36 AM RENZOT Toya Boogie MA documented as of this encounter Plan of Treatment Not on file documented as of this encounter Visit Diagnoses Not on filedocumented in this encounter Additional Health Concerns Assessment Noted Time PHQ-9 Depression Total Score: 0 02/10/20 25 11:36 AM EDT documented as of this encounter Care Teams Forensic Scientist Relationship Specialty Start Date End Date Linette Ventura MD [address] [place] [address] PCP - General Internal Medicine 12/06/22 Justin Rojo FNP [address] [place] [address] Nurse Practitioner Family Medicine 05/05/23 documented as of this encounter
--- OUTSIDE RECORDS SUMMARY | 2025-02-14 11:40 | XMS_ITS | Encounter Summary ---
Author Organization [employer] Address [address] [facility] 7t [place] [address] Care Team Providers Care Business Records Manager Name Role Phone Tigist Bartholomew Primary Care Provider Linette Olson MD Primary Care Pro vider Justin Rojo Unavailable Unavailable Reason for Visit * Reason Comments Med Refill Encounter Details Date Type Department Care Team (Late st Contact Info) Description 07/03/2022 Refill [facility] [address] [place] [address] Justin Rojo FNP Anxiety and depression (Primary [...] documented as of this encounter Care Teams Business Records Manager Relationship Specialty Start Date End Date Tigist Bartholomew FNP PCP - General Family Medicine 12/09/21 12/05/22 Linette Ventura MD [address] [place], [place] [phone] PCP - General Internal Medicine 12/06/22 Justin Rojo FNP [address] [place] [address] Nurse Practitioner Family Medicine 05/05/23 documented as of this encounter
--- OUTSIDE RECORDS SUMMARY | 2025-02-14 11:40 | XMS_ITS | Encounter Summary ---
Author Organization [employer] Address [address] [facility] [address]t [place] [address] Care Team Providers Care Gluing Machine Offbearer Name Role Phone Linette Ventura MD Primary Care Pro vider Justin Rojo Unavailable Unavailable Reason for Visit * Reason Comments Med Refill Encounter Details Date Type Department Care Team (Late st Contact Info) Description 02/08/2025 Refill [facility] [address] [place], [place] [phone] Linette Ventura MD [address] [place], [place] [phone] Social History Tobacco Use Types Packs/Day Years [...] housing situation today? I have gibranviviane english 08/31/[address] you [...] documented as of this encounter Care Teams Gluing Machine Offbearer Relationship Specialty Start Date End Date Linette Ventura MD [address] [place] [address] PCP - General Internal Medicine 12/06/22 Justin Rojo FNP [address] [place] [address] Nurse Practitioner Family Medicine 05/05/23 documented as of this encounter
--- OUTSIDE RECORDS SUMMARY | 2025-02-14 11:40 | XMS_ITS | Encounter Summary ---
Author Organization [employer] Address [address] [facility] [address] [place] [address] Care Team Providers Care Visitor Service Assistant Name Role Phone Linette Ventura MD Primary Care Pro vider Justin Rojo Unavailable Unavailable Encounter Details Date Type Department Care Team (Late st Contact Info) Description 11/03/2023 Orders Only [facility] MEDICINE [address] [place] [address] Provider, MD Jared Social History Tobacco Use [...] Author Patient Health Questionnaire -2 Score 0 11/03/2023 9:02 AM EDT Shayna Augustin MA * Over the past 2 weeks, how often have you been bothered by any of the following problems? Question Answer Date of Assessment Author Little interest or pleasure in doing things Not at all 11/03/2023 9:02 AM EDT Shayna Augustin MA Feeling down, depressed, or hopeless Not at all 11/03/2023 9:02 AM RENZOT Shayna [place] MA Trouble falling or staying asleep, or sleeping too much Not at all 11/03/2023 9:02 AM RENZOT Spring [place]in MA Feeling tired or having little energy Not at all 11/03/2023 9:02 AM RENZOT Shayna [place] MA Poor appetite or overeating Not at all 11/03/2023 9: 02 AM RENZOT Spring [place] MA Feeling bad about yourself - or that you are a failure or have let yourself or your family down Not at all 11/03/2023 9:02 AM Shayna De La Paz MA Trouble concentrating on things, such as reading the newspaper or watching television Not at all 11/03/2023 9:02 AM Shayna De La Paz MA Moving or speaking so slowly that other people could have noticed? Or the opposite - being so fidgety or restless that you have been moving around a lot more than usual. Not at all 11/03/2023 9:02 AM EDT Spring [place]in MA Thoughts that you would be better off or hurting yourself in some way Not at all 11/03/2023 9:02 AM EDT Anshu [place] MA Patient Health Questionnaire-9 Score 0 11/03/2023 9:02 AM EDT Agustin [place]in MA documented as of this encounter Plan [...] AM EDT Narrative 11/05/2023 12:24 PM EDT [facility] [address] [place] [address] Mammography Report Signed Patient: Carla Grant MR#: [id number] 797 : 1970 Acct:[id number] Age/Sex: 53 / F ADM Date: 11/05/23 Loc: HO.MAMMO Attending Dr: Linette Levy MD Ordering Physician: Linette Ventura MD Results: 3.6MProbably Benign Finding - Short 6 M F/U Suggested Date of Service: 11/05/23 Follow Up: 6 Month F/U Procedure(s): MM tomosynthesis diagnostic RT Accession Number(s): [id number] cc: Linette Ventura MD EXAMINATION: MM DIAGNOSTIC [...] in OV> 11/05/23 1221 DD/ 1138 TD/TT: Engineer Systems: Procedure Note Donotuseinterpreter, Image - 11/05/2023 [facility] [address] [place] [address] [place] [address] Mammography Report Signed Patient: Carla GrantMR#: [id number] 797 : 1970Acct:[id number] Age/Sex: 53 / FADM Date: 11/05/23 Loc: HO.MAMMO Attending Dr: Linette Levy MD Ordering Physician: Linette Ventura MD Results: 3.6MProbably Benign Finding - Short 6 M F/U Suggested Date of Service: 11/05/23Follow Up: 6 Month F/U Procedure(s): MM tomosynthesis diagnostic RT Accession Number(s): [id number] cc: Linette Ventura MD EXAMINATION: MM DIAGNOSTIC [...] in OV> 11/05/23 1221 DD/ 1138 TD/TT: Engineer Systems: us Linette Levy MD IMG BI PROCEDURES Final Result * Hm Colonoscopy (08/25/2019 12:29 PM EDT) us Historical Provider HEALTH MAINTENANCE Final Result documented in this encounter Visit Diagnoses Not on filedocumented in this encounter Additional Health Concerns Assessment Noted Time PHQ-9 Depression Total Score: 0 11/03/19 24 9:02 AM EDT documented as of this encounter Care Teams Visitor Service Assistant Relationship Specialty Start Date End Date Linette Ventura MD [address] [place], [place] [phone] PCP - General Internal Medicine 12/06/22 Justin Rojo FNP [address] [place] [address] Nurse Practitioner Family Medicine 05/05/23 documented as of this encounter
--- OUTSIDE RECORDS SUMMARY | 2025-02-14 11:40 | XMS_ITS | Encounter Summary ---
Author Organization [employer] Address 75 [facility] 7t [place] [address] Care Team Providers Care Rug Washer Name Role Phone Linette Ventura MD Primary Care Pro vider Justin Rojo Unavailable Unavailable Reason for Visit * Reason Comments Med Refill Encounter Details Date Type Department Care Team (Late st Contact Info) Description 06/11/2023 Refill [facility] MED[facility]INE [address] [place], [place] [phone] Melanie Zacarias MD [address] [place], [place] [phone] Social History Tobacco Use Types Packs/Day Years [...] documented as of this encounter Care Teams Rug Washer Relationship Specialty Start Date End Date Linette Ventura MD [address] [place] [address] PCP - General Internal Medicine 12/06/22 Justin Rojo FNP [address] [place] [address] Nurse Practitioner Family Medicine 05/05/23 documented as of this encounter
--- OUTSIDE RECORDS SUMMARY | 2025-02-14 11:40 | XMS_ITS | Encounter Summary ---
Author Organization [employer] Address [address] [facility] 7t [place] [address] Care Team Providers Care Animal Husbandry Teacher Name Role Phone Linette Ventura MD Primary Care Pro vider Justin Rojo Unavailable Unavailable Reason for Visit * Reason Comments Med Change Request Encounter Details Date Type Department Care Team (Late st Contact Info) Description 06/17/2023 Refill [facility] MEDICINE [address] [place], [place] [phone] Linette Ventura MD [address] [place], [place] [phone] Social History Tobacco Use Types Packs/Day Years [...] documented as of this encounter Care Teams Animal Husbandry Teacher Relationship Specialty Start Date End Date Linette Ventura MD [address] [place] [address] PCP - General Internal Medicine 12/06/22 Justin Rojo FNP [address] [place] [address] Nurse Practitioner Family Medicine 05/05/23 documented as of this encounter
--- OUTSIDE RECORDS SUMMARY | 2025-02-14 11:40 | XMS_ITS | Encounter Summary ---
Author Organization [employer] Address [address] [facility] 7t [place] [address] Care Team Providers Care Cfo Controller Name Role Phone Linette Ventura MD Primary Care Pro vider Justin Rjoo Unavailable Unavailable Reason for Visit * Reason Onset Date Comments Durable Medical Equipment 02/09/2025 Encounter Details Date Type Department Care Team (Late st Contact Info) Description 02/09/2025 Telephone [facility] MEDICINE [address] [place], [place] [phone] Linette Ventura MD [address] [place], [place] [phone] Durable Medical Equipment Social History Tobacco Use Types Packs/Day Years [...] AM EDT Toya Boogie MA * Feeling tired or having little energy Answer Date of Assessment Author Not at all 02/09/2025 11:36 AM EDT Toya Boogie MA * Poor appetite or overeating Answer Date of Assessment Author Not at all 02/09/2025 11:36 AM EDT Toya Boogie MA * Feeling bad about [...] or on edge 0 02/09/2025 11:36 AM Toya Leos MA Not being able to stop or co ntrol worrying 0 02/09/2025 11:36 AM Toya Leos MA Worrying too much about diff erent things 0 02/09/2025 11:36 AM Toya Leos MA Trouble relaxing 0 02/09/2025 11:36 AM Toya Leos MA Being so restless that it is hard to sit still 0 02/09/2025 11:36 AM Toya Leos MA Becoming easily annoyed or irritable 0 02/09/2025 11:36 AM Toya Leos MA Feeling afraid as if somethi ng awful might happen 0 02/09/2025 11:36 AM Toya Leos MA LIANNE-7 Total Score 0 02/09/2025 11:36 AM EDT Toya Boogie MA documented as of this encounter Miscellaneous Notes * Telephone Encounter - Toya Boogie MA - 02/09/2025 1:27 PM EDT DME RX for Compression stockings generated and placed on providers desk for signature. DME for Compression stockings signed and faxed to [facility] . Confirmation received and sent to scan. If patient calls to check status on above, please advise them to contact Kushal at [phone]. * Telephone Encounter - Toya Boogie MA - 02/09/2025 1:27 PM EDT ----- Message from Linette Levy MD sent at 02/09/2025 11:49 AM EDT ----- Please can you try to get compression stockings for lymphedema 15-20 mmg Hg Thanks documented in this encounter Plan of Treatment Not on file documented as of this encounter Visit Diagnoses Not on filedocumented in this encounter Additional Health Concerns Assessment Noted Time PHQ-9 Depression Total Score: 0 02/10/20 25 11:36 AM EDT documented as of this encounter Care Teams Cfo Controller Relationship Specialty Start Date End Date Linette Ventura MD [address] [place] [address] PCP - General Internal Medicine 12/06/22 Justin Rojo FNP [address] [place] [address] Nurse Practitioner Family Medicine 05/05/23 documented as of this encounter
--- OUTSIDE RECORDS SUMMARY | 2025-02-14 11:40 | XMS_ITS | Clinical Summary ---
Author Organization [employer] Address [address] [facility] 7t [place] [address] Care Team Providers Care Bone Drier Name Role Phone Linette Ventura MD Primary Care Pro vider Justin Rojo Unavailable Unavailable Allergies Active Allergy Reactions Criticality Noted Date Comments Oxycodone Hallucinations 06/14/2013 Medications calcium carbonate (Tums Ultra 1000) 1000 MG chewable tablet Chew 2 tablets every 12 (twelve) hours. 10/04/19 22 Active Blood Pressure Monitor kit 1 kit in the morning. 1 kit 03/25/20 23 Active furosemide (Lasix) 20 MG tabletIndicati ons:Lower leg edema Take 1 tablet by mouth every other day as needed for swelling/lower extremity edema 45 tablet 10/06/19 25 Active buPROPion XL (Wellbutrin XL) 300 MG 24 hr tabletIndicati ons:Anxiety and depression TAKE 1 TABLET BY MOUTH EVERY DAY. DO NOT CRUSH, CHEW OR SPLIT. 90 tablet 3 11/03/19 25 Active Ketotifen Fumarate 0.035 % solution ADMINISTER 1 DROP INTO BOTH EYES EVERY 12 HOURS. 15 mL 11/12/19 25 Active cetirizine (ZyrTEC) 10 MG tabletIndicati ons:Seasonal allergic rhinitis, unspecified trigger TOME SCOTT TABLETA DIARIAMENTE CUANDO SEA NECESARIO 90 tablet 12/21/19 25 Active hydrOXYzine HCl (Atarax) 25 MG tabletIndicati ons:Anxiety and depression TAKE 1-2 TABLETS BY MOUTH EVERY 6 HOURS IF NEEDED FOR ANXIETY 200 tablet 1 01/19/20 25 Active ergocalciferol (Vitamin D2) 1.25 MG (12063 UT) capsule TOME 1 CAPSULA POR VIA ORAL SCOTT VEZ POR SEMANA 12 capsule 02/09/20 25 Active omeprazole (PriLOSEC) [address] capsule Take 1 capsule (20 mg) by mouth before breakfast. 90 capsule 02/10/20 25 Active famotidine (Pepcid) 20 MG tablet Take 1 tablet (20 mg) by mouth if needed at bedtime for heartburn. 90 tablet 02/10/20 25 Active busPIRone (Buspar) 5 MG tablet Take 1 tablet (5 mg) by mouth 2 times daily. 60 tablet 2 02/10/20 25 026 Active Zepbound 15 MG/0.5ML solution auto-injector INJECT 1 PEN UNDER THE SKIN ONCE WEEKLY 01/21/20 25 Active omeprazole (PriLOSEC) [address] capsule TAKE 1 CAPSULE BY MOUTH TWICE A DAY BEFORE A MEAL 180 capsule 01/02/20 23 025 Discontinued(R eorder (will not trigger notification to Pharmacy)) ibuprofen 800 MG tablet Take 800 mg by mouth every 8 (eight) hours if needed. 09/07/19 24 025 Discontinued(O ther) Tirzepatide-We ight Management (Zepbound) 12.5 MG/0.5ML solution auto-injector Inject 12.5 mg under the skin 1 (one) time per week. 025 Discontinued(O ther) ibuprofen 600 MG tablet Take 1 tablet (600 mg) by mouth every 6 (six) hours if needed for mild pain for up to 20 doses. 20 tablet 10/21/19 25 025 Discontinued(O ther) ergocalciferol (Vitamin D2) 1.25 MG (38003 UT) capsule TOME 1 CAPSULA POR VIA ORAL SCOTT VEZ POR SEMANA 12 capsule 11/18/19 25 025 Discontinued hydrOXYzine HCl (Atarax) 25 MG tabletIndicati ons:Anxiety and depression TAKE 1-2 TABLETS BY MOUTH EVERY 6 HOURS IF NEEDED FOR ANXIETY 200 tablet 1 11/26/19 25 025 Discontinued amLODIPine (Norvasc) 2.5 MG tablet TAKE 1 TABLET BY MOUTH EVERY MORNING 90 tablet 1 12/11/19 25 025 Discontinued(O ther) famotidine (Pepcid) 20 MG tablet TOME 1 TABLETA POR VIA ORAL DOS VECES AL TABBY CUANDO SEA NECESARIO 180 tablet 12/21/19 025 Discontinued(R eorder (will not trigger notification to Pharmacy)) Active Problems Problem Noted Date Diagnosed Date Lymphedema 02/09/2025 Dental caries 08/01/2023 Non-restorable tooth 08/01/2023 Dental caries on smooth surface limited to ename l 07/02/2023 Retained dental root 03/27/2023 HLD (hyperlipidemia) 03/25/2023 [...] medication management. Any issues or concerns, contact [facility]. All her questions were answered and [...] 03/06/2015 Intertrigo 03/06/2015 Iron deficiency anemia 03/06/2015 Resolved Problems Problem Noted Date Diagnosed Date Resolved Date Sweating abnormality 03/31/2024 025 Postural dizziness with presyncope 01/27/2024 02/09/2025 Abdominal wall pain 05/19/2023 02/10/20 25 Encounters Date Type Department Care Team Description 02/09/2025 10:45 AM EDT Office Visit [facility] [address] [place] [phone] Linette Ventura MD Annual physical exam (Primary Dx); Hypertension, unspecified type; Class 3 severe obesity due to excess calories without serious comorbidity with body mass index (BMI) of 45.0 to 49.9 in adult; Health care maintenance; Gastroesophageal reflux disease with esophagitis, unspecified whether hemorrhage; Anxiety and depression; Edema of lower extremity; Lymphedema 02/09/2025 Telephone [facility] [address] [place] [phone] Linette Ventura MD Durable Medical Equipment 02/09/2025 Travel 02/08/2025 Telephone [facility] [address] [place] [phone] Linette Ventura MD CHART PREP 02/08/2025 Refill [facility] [address] [place] [phone] Linette Ventura MD 02/01/2025 Patient Outreach [facility] [address] [place] [phone] Linette Ventura MD Pre-visit Planning (SDOH screening was completed on 08/31/2024) 01/18/2025 Refill [facility] [address] [place] [address] Linette Ventura MD Anxiety and depression 12/18/2024 Refill [facility] [address] [place], [place] [phone] Linette Ventura MD Seasonal allergic rhinitis, unspecified trigger 12/10/2024 Refill [facility] [address] [place] [address] Melanie Zacarias MD 11/25/2024 Refill [facility] [address] [place] [address] Livia Segura MD Anxiety and depression 11/23/2024 11:00 AM EDT Office Visit [facility] [address] [place] [address] Kailey Allan, DDS 11/17/2024 Refill [facility] [address] [place], [place] [phone] Linette Ventura MD 11/15/2024 Telephone [facility] [address] [place] [address] Linette Ventura MD recall from Last 3 Months Immunizations Immunization Administration Dates Next Due Influenza, IIV3, injectable 03/26/2011, 7 Pfizer Covid-19 Vaccine 12+ Bivalent 01/22/2023 TD (adult), 2 Lf tetanus tox oid, preservative free, adsorbed 01/05/2008 Tdap 04/30/2018 Zoster, Recombinant 12/31/2021,10/12/2021 Family History Medical History Relation Name Comments Prostate cancer Brother HTN Father Prostate cancer Father Breast cancer Father's Sister DM2 Mother Relation Name Status Comments Brother Father Father's Sister Mother Social History Tobacco [...] 20 02/09/2025 11:35 AM EDT Oxygen Saturation 98% 09/14/2024 10:07 AM EDT Inhaled Oxygen Concentration - - Weight 78 kg (172 lb) 02/09/2025 11:35 AM EDT Height 154.9 cm (5' 1 ) 02/09/2025 11:35 AM EDT Body Mass Index 32.5 02/09/2025 11:35 AM EDT Plan of Treatment Health Maintenance Due Date Last Done Comments CT Colonography 1970 FIT DNA/Cologuard 1971 FIT 1970 FOBT 1970 Sigmoidoscopy 1970 Hepatitis B Vaccines (1 of 3 - 19+ 3-dose series) 1990 Dental Prophylaxis 02/19/2016 08/18/2015, 0 09/06/2014, 07/29/2013, Additional history exists Pneumococcal Vaccine: 50+ Years (1 of 1 - PCV) 2021 Dental Oral Exam 08/01/2022 01/31/2022, 05/2015, 09/06/2014, Additional history exists Dental X-Ray: Bitewings 02/27/2024 02/26/20 23, 01/31/2022, 08/15/2014, Additional history exists Colonoscopy 08/24/2024 08/25/2019 Colorectal Cancer Screening 08/24/2024 COVID-19 Vaccine ( - season) 2025 01/22/2023 Influenza Vaccine (#1) 2025 03/26/2011, 2006 Diagnostic Breast Imaging 02/18/2025 08/18/2024, 10/2023 SDOH Screening 08/31/2025 08/31/2024 Alcohol/Substance Use Screening 09/14/2025 09/14/2024 Disability Screening 09/14/2025 09/14/2024 Pap Smear 10/31/2025 10/31/2022, 10/30/2022 Depression Screening 02/09/2026 02/09/2025, 02/10/20 Tobacco Screening 02/09/2026 02/09/2025 Dental X-Ray: Full Mouth 08/20/2026 08/20/2023, 09/06/2021 [...] Procedure Name Priority Date/Time Associated Diagnosis Comments 3,4,7,10,12,14,13 MAXILLARY PARTIAL DENTURE - RESIN BASE (INCLUDING, RETENTIVE/CLASPING MATERIALS, RESTS, AND TEETH) Routine 11/23/2024 11:00 AM EDT Maria [facility] COMPLETE DENTURE - MANDIBULAR Routine 11/23/2024 11:00 AM EDT BI MAMMOGRAM DIAGNOSTIC TOMOSYNTHESIS BILATERAL Routine 08/18/2024 1:30 PM EDT HEPATITIS C AB W/REFL TO HCV RNA, [...] PM EDT Narrative 08/18/2024 2:08 PM EDT [facility] [place] [address] Mammography Report Signed Patient: Carla Grant MR#: [id number] 797 : 1970 Acct:[id number] Age/Sex: 54 / F ADM Date: 08/18/24 Loc: HO.MAMMO Attending Dr: Linette Levy MD Ordering Physician: Linette Ventura MD Results: 3.12MProbably Benign Finding - 12 month F/U Suggested Date of Service: 08/18/24 Follow Up: 12 month diagnos tic follow up Procedure(s): MM tomosynthesis diagnostic BI Accession Number(s): [id number] cc: Linette Ventura MD EXAMINATION: MM DIAGNOSTIC [...] 08/18/24 1405 DD/ 1330 TD/TT: 08/18/24 1348 Manager Medicare Marketing: Procedure Note Donotuseinterpreter, Image - [facility]/18/20[facility] [address] [place] [address] Mammography Report Signed Patient: Carla Grant#: [id number] : 1970Acct:[id number] Age/Sex: 54 / FADM Date: 08/18/24 Loc: HO.MAMMO Attending Dr: Linette Levy MD Ordering Physician: Linette Ventura MD Results: 3.12MProbably Benign Finding - 12 month F/U Suggested Date of Service: 08/18/24Follow Up: 12 month diagnos tic follow up Procedure(s): MM tomosynthesis diagnostic BI Accession Number(s): [id number] cc: Linette Ventura MD EXAMINATION: MM DIAGNOSTIC [...] Tati Suárez DO 08/18/2024 02:05 PM EDT RP Workstation: [place] [employer] Dictated By: Tati Suárez DO Signed By: <Electronically signed by Tati Suárez DO in OV> 08/18/24 1405 DD/ 1330 TD/TT: 08/18/24 1348 Manager Medicare Marketing: us Linette Levy MD IMG BI PROCEDURES Final Result * Hepatitis C Antibody with Reflex to HCV, RNA, Quantitative, Real-Time PCR (03/25/2024 9:30 AM EDT) Pathologist [facility] Hepatitis C Antibody Nonreactive Nonreactive [facility] Comment:Antibodies to HCV no t detected; does not exclude early acuteHCV infection. Blood Venous blood specimen / Unknown 03/25/2024 9:30 AM EDT 03/25/2024 10:59 AM EDT us Linette Levy MD LAB BLOOD ORDERAB LES Final Result [facility] [address] [place] [address] [phone] * HIV-1/2 Antigen and Antibodies, Fourth Generation, with Reflexes (03/25/2024 9:30 AM EDT) HIV AB/AG Nonreactive Nonreactive [facility] Comment:HIV-1 p24 Ag and/or HIV-1/HIV-2 Ab not detected.A test result that is nonreactive does not exclude thepossibility of exposure to or infection with HIV-1 and/orHIV-2. Nonreactive results in this assay for individualswith prior exposure to HIV-1 and/or HIV-2 may be due toantigen and antibody levels that are below the limit ofdetection of this assay.The [employer] HIV Ag/Ab Combo assay result andsupplemental assay results should be interpreted inconjunction with the patient's clinical presentation,history and other laboratory results. If the results areinconsistent with clinical evidence, additional testing issuggested to confirm the result. Blood Venous blood specimen / Unknown 03/25/2024 9:30 AM EDT 03/25/2024 10:59 AM EDT Linette Levy MD LAB BLOOD ORDERAB LES Final Result [facility] [address] [place] [address] [phone] * (ABNORMAL) Lipid Panel, Standard (03/25/2024 9:30 AM EDT) Pathologist [facility] Triglycerides 81 <150 mg/dL [facility] Comment:Desirable Triglyceri de: less than 150 mg/dLBorderline High Triglyceride 150-199 mg/dLHigh Triglyceride: 200-499 mg/dLVery High Triglyceride: greater than or equal to 5OO mg/dL Cholesterol 188 <200 mg/dL [facility] Comment:Desirable Cholestero l: less than 200 mg/dLBorderline High Cholesterol: 200-239 mg/dLHigh Cholesterol: greater than 239 mg/dL LDL Cholesterol Calculated 111(H) <100 mg/dL [facility] Comment:Desirable LDL: less than 100 mg/dLNear Optimal/Above Optimal LDL: 110- 129 mg/dLBorderline High LDL: 130-159 mg/dLHigh LDL: 160-189 mg/dLVery High LDL: greater than or equal to 190 mg/dL HDL Cholesterol 61 >40 mg/dL [facility] Comment:Desirable HDL: great er than 40 mg/dL Note: This HDL assay may give artificially low results in patients with liver disease. Blood Venous blood specimen / Unknown 03/25/2024 9:30 AM EDT 03/25/2024 10:59 AM EDT Linette Levy MD LAB BLOOD ORDERAB LES Final Result [facility] [address] [place] [address] [phone] * Pap Smear (10/31/2022) Pathologist [facility] Pap smear NILM HPV neg Historical Provider HEALTH MAINTENANCE Final Result * HPV mRNA E6/E7 w/Reflex to HPV Genotypes 16, 18/45 (10/30/2022 2:48 PM EDT) Pathologist [facility] HPV nRNA E6/E7 Not Detected Not Detected [facility] Comment:Methodology: Transcr iption-Mediated AmplificationThis assay detects E6/E7 viral messenger RNA (mRNA) from 14high-risk HPV types (16,18,31,33,35,39,45,51,52,56,58,59,66,68).Cervical sources are required for HPV testing.If a vaginal source from a patient who has had atotal hysterectomy with removal of cervix wassubmitted, please contact the testing laboratoryfor alternative testing options.For additional information, please refer [email or web address]/faq/[email or web address](This link if provided for information/educational purposes only.)THIS TEST WAS PERFORMED AT:[employer] [place] [phone] GATES MD HPV mRNA E6/E7 TNP [facility] HPV 16 RNA TNP [facility] HPV 18/45 RNA [facility] 10/30/2022 2:48 PM EDT 10/31/2022 8:30 AM EDT [facility] External Provider LAB CYT OLOGY ORDERABLES Final Result [facility] [address] [place] [address] [phone] * Hm Colonoscopy (08/25/2019 12:29 PM EDT) Historical Provider MD HEALTH MAINTENANCE Final Result from Last 3 Months or Most Recently Relevant to Health Maintenance Insurance [facility] C3 DENTAL-[facility] MEDICAID STAND ADULT Care Teams Bone Drier Relationship Specialty Start Date End Date Linette Ventura MD [address] [place] [address] [phone] PCP - General Internal Medicine 12/06/22 Justin Rojo FNP [address] [place] [phone] Nurse Practitioner Family Medicine 05/05/23
--- OUTSIDE RECORDS SUMMARY | 2025-02-14 11:40 | XMS_ITS | Encounter Summary ---
Author Organization [employer] Address [address] [facility] [address]t [place] [address] Care Team Providers Care Automotive Quality Manager Name Role Phone Linette Ventura MD Primary Care Pro vider Justin Rojo Unavailable Unavailable Reason for Visit * Reason Comments Med Refill Encounter Details Date Type Department Care Team (Late st Contact Info) Description 06/26/2023 Refill [facility] [address] [place], [place] [phone] Linette Ventura MD [address] [place], [place] [phone] Fungus infection Social History Tobacco Use Types [...] documented as of this encounter Care Teams Automotive Quality Manager Relationship Specialty Start Date End Date Linette Ventura MD [address] [place] [address] PCP - General Internal Medicine 12/06/22 Justin Rojo FNP [address] [place] [address] Nurse Practitioner Family Medicine 05/05/23 documented as of this encounter
--- OUTSIDE RECORDS SUMMARY | 2025-02-14 11:40 | XMS_ITS | Encounter Summary ---
Author Organization [employer] Address [address] [facility] 7[address] [place] [address] Care Team Providers Care Purchasing Manager Name Role Phone Linette Ventura MD Primary Care Pro vider Justin Rojo Unavailable Unavailable Reason for Visit * Reason Comments Med Refill Encounter Details Date Type Department Care Team (Late st Contact Info) Description 06/15/2023 Refill [facility] MEDICINE [address] [place], [place] [phone] Linette Ventura MD [address] [place], [place] [phone] Social History Tobacco Use Types Packs/Day Years [...] documented as of this encounter Care Teams Purchasing Manager Relationship Specialty Start Date End Date Linette Ventura MD [address] [place] [address] PCP - General Internal Medicine 12/06/22 Justin Rojo FNP [address] [place] [address] Nurse Practitioner Family Medicine 05/05/23 documented as of this encounter
--- OUTSIDE RECORDS SUMMARY | 2025-02-14 11:40 | XMS_ITS | Encounter Summary ---
Author Organization [employer] Address [address] [place] [address] 7 [place] [address] Care Team Providers Care Supervisor Plastics Name Role Phone Tigist Bartholomew Primary Care Provider Linette Olson MD Primary Care Pro vider Justin Rojo Unavailable Unavailable Reason for Visit * Reason Comments Med Refill Encounter Details Date Type Department Care Team (Late st Contact Info) Description 05/06/2022 Refill [facility] MEDICINE [address] [place] [address] Tigist Bartholomew FNP Social History Tobacco Use Types Packs/Day Years [...] on filedocumented in this encounter Care Teams Supervisor Plastics Relationship Specialty Start Date End Date Tigist Bartholomew FNP PCP - General Family Medicine 12/09/21 12/05/22 Linette Ventura MD [address] [place] [address] PCP - General Internal Medicine 12/06/22 Justin Rojo FNP [address] [place] [id number] Nurse Practitioner Family Medicine 05/05/23 documented as of this encounter
--- OUTSIDE RECORDS SUMMARY | 2025-02-14 11:40 | XMS_ITS | Clinical Summary ---
Author Organization [address] [facility] Address [address] [place] [address] Phone Care Team Providers Care Quality Assurance Consultant Name Role Phone Justin Rojo NP Primary Care Provider [phone] Allergies Active Allergy Reactions Criticality Noted Date Comments Other Hallucinations 05/08/2021 Percocet [Apap-fd&c Blue #1-oxycodone] Oxycodone Hallucinations 06/14/2013 Medications naltrexone (DEPADE) 50 mg tablet TOME 1 TABLETA POR VIA ORAL TODOS [place] BECKER 4 Active topiramate (TOPAMAX) 50 mg tablet TOME 1 TABLETA POR VIA ORAL TODOS [place] BECKER 4 Active OMEPRAZOLE ORAL Take by mouth. Active furosemide (LASIX) 20 mg tablet Take 10 mg by mouth daily. Active busPIRone (BUSPAR) 15 mg tablet Take 15 mg by mouth 3 times daily. Active HYDROCHLOROTHIA ZIDE ORAL Take 25 mg by mouth daily. Active CHOLECALCIFEROL , VITAMIN D3, ORAL Take 3,000 mg by mouth daily. Active tirzepatide, weight loss, (ZEPBOUND) 15 mg/0.5 mL injectionIndica tions:Class 2 obesity due to excess calories with body mass index (BMI) of 36.0 to 36.9 in adult, unspecified whether serious comorbidity present Inject 0.5 mL (15 mg total) under the skin every 7 (seven) days. 2 mL 5 025 Active tirzepatide, weight loss, (Zepbound) 12.5 mg/0.5 mL injectionIndica tions:Class 2 obesity due to excess calories with body mass index (BMI) of 36.0 to 36.9 in adult, unspecified whether serious comorbidity present Inject 0.5 mL (12.5 mg total) under the skin every 7 (seven) days. 2 mL 3 5 025 Discontinued Active Problems Problem Noted Date Diagnosed Date Class 3 severe obesity with body mass index (BMI) of 40.0 to 44.9 in adult ([facility] V24, [facility] V28) 03/09/2024 Surgical History Surgery Date Site/Laterality Comments SECTION PROCEDURE: HISTORICAL DELIVERY GASTRIC BYPASS PROCEDURE: CA GASTRIC RSTCV W/BYP W/SM INT RCNSTJ LIMIT ABSRPJ OTHER SURGICAL HISTORY PROCEDURE: CA LAPS GASTRIC RESTRICTIVE PROCEDURE PLACE DEVICE OTHER SURGICAL HISTORY 06/11/2021 PROCEDURE: CA LAPS TOTAL HYSTERECT 250 GM/< W/RMVL TUBE/OVARY; [...] 74 08/19/2024 10:07 AM EDT Temperature 36.6 C (97.8 F) 08/19/2024 10:07 AM EDT Respiratory Rate - - Oxygen Saturation - - Inhaled Oxygen Concentration - - Weight 87.5 kg (193 lb) 08/19/2024 10:07 AM EDT Height 154.9 cm (5' 1 ) 08/19/2024 10:07 AM EDT Body Mass Index 36.47 08/19/2024 10:07 AM EDT Plan of Treatment Upcoming Encounters Date Type Department Care Team (Late st Contact Info) Description 02/17/2025 10:15 AM EDT Office Visit Bariatric Surgery - [place] [address] [facility] [address] [place] [address] Crystal Kowalski MD [address] [place] [phone] Health Maintenance Due Date Last Done Comments Breast Cancer Screening 1970 Hepatitis B Vaccines (1 of 3 - 19+ 3-dose series) 1990 Pneumococcal Vaccine: 50+ Years (1 of 1 - PCV) 2021 Colorectal Cancer Screening: Colonoscopy 05/01/2022 Social Influencers of Health Screening 05/01/2022 Depression Screening 06/02/2024 COVID-19 Vaccine (2 - 2024-2 6 season) 2025 01/22/2023 Influenza Vaccine (#1) 2025 1, 04/28/2007 Hypertension/CHF/CAD Annual BMP Blood Test 03/25/2025 [...] Results * Annual BMP Blood Test (05/13/2023) [facility] Annual BMP Blood Test abstracted [facility] Provider HEALTH MAINTENANCE Final Result * HIV Screening (01/29/2023) [facility] HIV Screening abstracted Result [facility] Provider HEALTH MAINTENANCE Final Result * Hepatitis C Screening (01/29/2023) [facility] Hepatitis C Screening abstracted Result [facility] Provider HEALTH MAINTENANCE Final Result * Lipid panel (01/29/2023) [facility] LDL/HDL Ratio 0 Comment:no interpretation Triglycerides 0 mg/dL Comment:no interpretation Cholesterol 0 mg/dL Comment:no interpretation HDL 0 mg/dL Comment:no interpretation LDL Cholesterol 0 mg/dL Comment:no interpretation Blood Venous blood specimen / Unknown Result [facility] Provider LAB BLOOD ORDERABLES Hayley l Result * Cervical Cancer Screening: HPV (10/30/2022) [facility] Cervical Cancer Screening: HPV no interpretation , abstracted Historical Provider HEALTH MAINTENANCE Final Result from Last 3 Months or Most Recently Relevant to Health Maintenance Insurance MEDICAID - [place] Care Teams Quality Assurance Consultant Relationship Specialty Start Date End Date Justin Rojo NP [address] [place], [place] PCP - General 03/20/23
== END 2025-02-14 10:12 | disposition home or self-care (01) ==
LOC: HO.HCS 09:38
PROVIDERS: PCP Student in an Organized Health Care Education/Training Program; Visit Provider Nurse Practitioner Family
DX: I95.1 Orthostatic hypotension (principal); I10 Essential (primary) hypertension
CPT/HCPCS: 99213

== ENCOUNTER → 2025-02-14 09:38 | Outpatient (BNVA) | payer MEDICAID, SELFPAY | PROVIDERS: PCP Student in an Organized Health Care Education/Training Program; Visit Provider Nurse Practitioner Family | DX: I95.1 Orthostatic hypotension (principal); I10 Essential (primary) hypertension | CPT/HCPCS: 99212 ==

== ENCOUNTER 2025-03-24 10:50 | Outpatient (AMB) | payer MEDICAID, SELFPAY ==
--- NOTE | 2025-03-24 10:52 | A.OFFVIS_ITS ---
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 Public Health Inspector: Public Health Inspector Present (Nataliia) Accompanied by: Self / Same As Patient Allergies oxycodone (From PERCOCET) Allergy (Intermediate, Verified 03/24/25 10:54) HALLUCINATIONS Medication List - Last Reconciled 03/24/25 by Marilia Julien CNM bupropion HCl XL 300 mg PO DAILY buspirone 5 mg PO BID famotidine 20 mg PO DAILY furosemide (Lasix) 20 mg PO DAILY PRN hydroxyzine HCl 25 - 50 mg PO Q6H PRN ketotifen fumarate 0.025%(0.035%) 1 drp ophthalmic (eye) Q12H omeprazole 20 mg PO DAILY sertraline 25 mg PO DAILY tirzepatide (weight loss) (Zepbound) 15 mg subcut QWEEK Is last menstrual period known: No Post menopausal: Yes Patient : No HPI HPI COMPUTER HELP DESK REPRESENTATIVE annual exam: Details: 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 She is not having any unit assembler concerns at all. She has lost from over 400 lb to her current 168 today she had 2 bariatric surgeries the bypass and the lap band and then she did gain a little bit back and went from 180-240 so she now she is on GLP ones and they are really helping her and she is able to eat small portions and feel full. She feels very very good she gets her regular mammograms and she said she was told that they were normal she did have a biopsy in the past and was told everything was fine and that was reflected on the mammograms she is getting yearly mammograms she follows up with her primary care provider and we will be seeing her soon and she is able to walk and be healthier then she was in the past when she was so disabled because of her weight. She has no regrets about having done the surgery and her other efforts to keep the weight off. 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 [facility] Medical History (Updated 03/24/25 @ 11:55 by Marilia Julien CNM) Tubular adenoma Gastritis HTN (hypertension) Morbid obesity Anemia IBS (irritable bowel syndrome) Surgical History Hx of umbilical hernia repair S/P partial hysterectomy H/O right knee surgery Hx of section Tubal ligation status Hx of laparoscopic gastric banding Family History Father Prostate cancer Maternal Aunt Breast cancer Brother Prostate cancer Social History Household Members: None Housing: Apartment Alcohol intake: never Patient Tobacco Use Status: Never used Tobacco service: No Current occupational status: disabled Current occupation: rt handed Female Reproductive History Menstrual Age of Menarche: 11 Total pregnancies: 4 Full term: 3 Date of last pap smear: 10/30/22 (negative pap smear, negative hpv ) Date of Mammogram: 08/18/24 (bi rad 3) Physical Exam Vital Signs: Last Vital Signs BP 104/72 03/24/25 11:03 BMI result Body Mass Index 31.7 Const Other: Evidence of scarring from weight loss surgeries and abdominal plasty and pendulous skin and breasts. General: healthy appearing, comfortable, no acute distress, well developed and alert Nutritional Appearance: average body habitus Orientation/consciousness: patient oriented x3 Limitations: no limitations HEENT Head: Yes normocephalic Neck Neck: Yes normal visual inspection Chest Chest palpation & inspection: normal inspection of the chest Breast/axilla inspection: normal inspection of the breasts and normal inspection of the axillae Breast/axilla palpation: normal palpation of the breasts and normal palpation of the axillae Resp Effort & Inspection: normal respiratory effort GI Inspection: Yes normal to inspection, No Abdominal wall edema and No distended Palpation (GI): Soft to palpation and nontender Other: External exam within normal limits vagina is pink and moist cervix is surgically absent uterus surgically absent scar tissue from hysterectomy palpable at vaginal cuff but is nontender no adnexal mass palpable very good tone with Kegel. General: Yes bladder normal to palpation External Female Exam: normal external appearance and normal appearance of the u rethra Speculum Exam - Vagina: normal appearance of the vagina, normal palpation and normal vaginal discharge Speculum Exam - Cervix: normal appearance of the cervix, normal palpation and nontender Bimanual exam- vagina & uterus: normal bimanual exam, normal palpation, uterine size normal, bladder normal to palpation, consistency normal, normal palpation, uterine mobility normal, uterine shape normal, No Cervical tenderness present, non-tender and no cervical motion tenderness Bimanual Exam- Adnexa, other: normal adnexae, no masses, normal and No adnexal tenderness Neuro General: patient oriented x3 Results Reviewed Results Reviewed: Patient: Carla Grant MR#: [id number] : 1970 Acct:[id number] Age/Sex: 54 / F ADM Date: 08/18/24 Loc: HO.MAMMO Attending Dr: Linette Levy MD Ordering Physician: Linette Ventura MD Results: 3.12MProbably Benign Finding - 12 month F/U Suggested Date of Service: 08/18/24 Follow Up: 12 month diagnostic follow up Procedure(s): MM tomosynthesis diagnostic BI Accession Number(s): [id number] cc: Linette Ventura MD~ EXAMINATION: MM DIAGNOSTIC DIGITAL BREAST TOMOSYNTHESIS, BILATERAL CLINICAL INFORMATION: 18 month follow-up for calcifications in the right breast. COMPARISON: Mammography: Comparison is made with relevant prior exams. TECHNIQUE: Digital breast mammography with tomosynthesis is performed in both the craniocaudal and mediolateral oblique views along with computer-aided detection (CAD). FINDINGS: There are scattered areas of fibroglandular density (ACR BI-RADS breast composition Category b). Left: There are no significant masses, abnormal calcifications, or other abnormalities. Right: Coarse and punctate calcifications in the retroareolar region of the right breast are not significantly changed on magnification views dating back to April 2023. No suspicious masses or other abnormal findings. Results are provided to the patient at time of visit by the technologist. MM/MM tomosynthesis diagnostic BI IMPRESSION: Left: Negative. Right: Grouped calcifications in the retroareolar region are not significant change from priors dating back for April 2023. Recommend diagnostic mammography in one year when the patient is due for bilateral mammogram to demonstrate 2 years of stability. ASSESSMENT: BI-RADS BI-RADS 3 - Probably benign finding(s) - 12 month follow-up suggested RECOMMENDATION: 12 month diagnostic follow up This patient's information was entered into a reminder system with a target due date for their next mammogram. Electronically signed by: Tati Suárez DO 08/18/2024 02:05 PM EDT Assessment & Plan Assessment & Plan (1) S/P partial hysterectomy: Code(s): Z90.711 - Acquired absence of uterus with remaining cervical stump Category: Surgical (2) Well woman exam with routine gynecological exam: Code(s): Z01.419 - Encounter for gynecological examination (general) (routine) without abnormal findings Category: Medical (3) Cervical cancer screening: Comment: 10/30/2022 Pap is negative with negative HPV. Code(s): Z12.4 - Encounter for screening for malignant neoplasm of cervix Category: Medical (4) Morbid obesity: Comment: Patient is status post 2 bariatric surgeries and currently on a GLP 1 and is continuing to lose patient was over 400 lb at heaviest currently 168 today. Code(s): E66.01 - Morbid (severe) obesity due to excess calories Category: Medical Plan -----Discussed in this visit the following: healthy balanced diet, regular and consistent exercise, getting recommended health screens, doing the best she can for her particular health concerns, kegel exercises, pap smear screening and followup recommendations, mammography screening and SBE, normal changes in cycles in her life stage--- . Discussed her efforts at weight loss and her beneficial results she feels very good. She is up-to-date on her mammogram screening I reviewed the mammogram findings with her and the overall finding is that they are normal but if she wants to talk about anymore detail she could talk with her primary care provider about them she is getting yearly mammograms. She is sexually active with her and has no concerns about STIs but accepted testing during this visit she is not due for Pap smear as her last 1 was negative in 2022 and she has never had an abnormal 1. She continues to follow with her primary care and with her bariatric surgeon who is currently managing her continued weight loss she has also had abdominal plasty surgery in the past and that maybe this site of her abdominal burning that she is experiencing no pathology evident today on my exam. Coding Level of Care Code Est Pt Prev Care 40-64y(21987) Diagnoses S/P partial hysterectomy Z90.711 Well woman exam with routine gynecological exam Z01.419 Cervical cancer screening Z12.4 Morbid obesity E66.01
[2025-03-24 11:03] VITALS: BP 104/72; BMI 31.7
--- OUTSIDE RECORDS SUMMARY | 2025-03-24 13:16 | XMS_ITS | Clinical Summary ---
Author Organization [facility] Address [address] [phone] Phone Care Team Providers Care Gun Perforator Loader Name Role Phone Unknown, Unknown Primary Care Provider Anthony vazquez Social History Tobacco Use Types Packs/Day Years Used Date Smoking Tobacco: Never Assessed Comments Unknown Sex and Gender Information Value Date Recorded Sex Assigned at Not on file Legal Sex Female 11:12 AM EST Gender Identity Not on file Sexual Orientation Not on file Plan of Treatment Not on file Medical Devices Not on file Insurance [employer] [facility] [place] [employer] [facility] [place]PO [facility]PO [facility] EPO [facility] EPO [facility] EPO [employer] [facility] EPO Care Teams Gun Perforator Loader Relationship Specialty Start Date End Date Unknown, Unknown, PCP - General 06/06/17 Additional Source Comments The information contained in this document represents components of the legal health record. It is not the complete legal health record.[facility]
--- OUTSIDE RECORDS SUMMARY | 2025-03-24 13:17 | XMS_ITS | Encounter Summary ---
Author Organization [employer] [facility] Address [address] [facility] [address] [place] [phone] Phone Care Team Providers Care Compliance Administrator Name Role Phone Unknown, Unknown Primary Care Provider Anthony vazquez Encounter Details Date Type Department Care Team (Late st Contact Info) Description 06/06/2017 Ancillary Orders [facility] [address] [place] [address] Compa Livingston DO [address] [place] [address] Palpitations Social History Tobacco Use Types Packs/Day Years Used Date Smoking Tobacco: Never Assessed Comments Unknown Sex and Gender Information Value Date Recorded Sex Assigned at Not on file Legal Sex Female 11:12 AM EST Gender Identity Not on file Sexual Orientation Not on file documented as of this encounter Plan of Treatment Not on file documented as of this encounter Results * Holter Monitor 48 Hours (06/06/2017 11:32 AM EST) Anatomical Region Laterality Modality Heart Other Narrative 06/06/2017 12:09 PM EST Holter monitor report Indication palpitations Findings: The underlying rhythm is a normal sinus rhythm with average heart rate 72 bpm, minimum heart rate 46 bpm and maximum heart rate 130 bpm. There are rare isolated PVCs. There are rare isolated premature atrial contractions. There are no tachyarrhythmias Conclusion: Normal Holter monitor. Compa Livingston DO [facility] ORDERABLE S Final Result documented in this encounter Visit Diagnoses Diagnosis Palpitations Palpitations documented in this encounter Care Teams Compliance Administrator Relationship Specialty Start Date End Date Unknown, Unknown, PCP - General 06/06/17 documented as of this encounter Additional Source Comments The information contained in this document represents components of the legal health record. It is not the complete legal health record.[facility]
--- OUTSIDE RECORDS SUMMARY | 2025-03-24 13:17 | XMS_ITS | Clinical Summary ---
Author Organization [facility] Address [address] [place] [address] Phone Care Team Providers Care Clinical Laboratory Scientist Name Role Phone Justin Rojo NP Primary Care Provider [phone] Allergies Active Allergy Reactions Criticality Noted Date Comments Other Hallucinations 05/08/2021 Percocet [Apap-fd&c Blue #1-oxycodone] Oxycodone Hallucinations 06/14/2013 Medications OMEPRAZOLE ORAL Take by mouth. Active furosemide (LASIX) 20 mg tablet Take 10 mg by mouth daily. Active busPIRone (BUSPAR) 15 mg tablet Take 15 mg by mouth 3 times daily. Active HYDROCHLOROTHIAZ YAW ORAL Take 25 mg by mouth daily. Active CHOLECALCIFEROL, VITAMIN D3, ORAL Take 3,000 mg by mouth daily. Active tirzepatide, weight loss, (ZEPBOUND) 15 mg/0.5 mL injectionIndicat ions:Class 2 obesity due to excess calories with body mass index (BMI) of 36.0 to 36.9 in adult, unspecified whether serious comorbidity present Inject 0.5 mL (15 mg total) under the skin every 7 (seven) days. 2 mL 5 5 08/05/19 26 Active naltrexone (DEPADE) 50 mg tablet TOME 1 TABLETA POR VIA ORAL TODOS LOS BECKER 4 03/02/20 25 Discontinu ed( ) topiramate (TOPAMAX) 50 mg tablet TOME 1 TABLETA POR VIA ORAL TODOS [place] BECKER 4 03/02/20 25 Discontinu ed( ) Active Problems Problem Noted Date Diagnosed Date Class 3 severe obesity with body mass index (BMI) of 40.0 to 44.9 in adult ([facility] V24, [facility] V28) 03/09/2024 Encounters Date Type Department Care Team Description 03/02/2025 9:30 AM EDT Consult Plastic & Reconstructive Surgery [facility] [address] [place] [phone] Fernando Morfin PA Excess skin of arm (Primary Dx) 02/17/2025 10:15 AM EDT Office Visit Bariatric Surgery - [place] [address] [place] [address] Crystal Kowalski MD Postoperative intestinal malabsorption (Primary Dx); Excess skin of arm; Class 2 obesity due to excess calories with body mass index (BMI) of 36.0 to 36.9 in adult, unspecified whether serious comorbidity present from Last 3 Months Surgical History Surgery Date Site/Laterality Comments SECTION PROCEDURE: HISTORICAL DELIVERY GASTRIC BYPASS PROCEDURE: LA GASTRIC RSTCV W/BYP W/SM INT RCNSTJ LIMIT ABSRPJ OTHER SURGICAL HISTORY PROCEDURE: LA LAPS GASTRIC RESTRICTIVE PROCEDURE PLACE DEVICE OTHER SURGICAL HISTORY 06/11/2021 PROCEDURE: LA LAPS TOTAL HYSTERECT 250 GM/< W/RMVL TUBE/OVARY; [...] Packs/Day Years Used Date Smoking Tobacco: Never Smokeless Tobacco: Never Tobacco Cessation:Counseling Given: Not Answered Alcohol Use Standard Drinks/Week Comments Never 0 (1 standard drink = 0.6 oz pur e alcohol) Comments Unknown Sex and Gender Information Value Date Recorded Sex Assigned at Not on file Legal Sex Female 3:14 PM EST Gender Identity Not on file Sexual Orientation Not on file Obstetrics History Last Filed Vital Signs Vital Sign Reading Time Taken Comments Blood Pressure 123/84 03/02/2025 9:27 AM EDT Pulse 69 03/02/2025 9:27 AM EDT Temperature 36.9 C (98.5 F) 02/17/2025 10:14 AM EDT Respiratory Rate - - Oxygen Saturation - - Inhaled Oxygen Concentration - - Weight 78.2 kg (172 lb 6.4 oz) 03/02/2025 9:27 A M EDT Height 155.6 cm (5' 1.25 ) 03/02/2025 9:27 AM ED T Body Mass Index 32.31 03/02/2025 9:27 AM EDT Plan of Treatment Upcoming Encounters Date Type Department Care Team (Late st Contact Info) Description 08/18/2025 10:15 AM EDT Office Visit Bariatric Surgery - [address] [place] [address] Crystal Kowalski MD [address] [place] [phone] Health Maintenance Due Date Last Done Comments Breast Cancer Screening 1970 Colorectal Cancer Screening: Colonoscopy 1970 Hepatitis B Vaccines (1 of 3 - 19+ 3-dose series) 1990 Pneumococcal Vaccine: 50+ Years (1 of 1 - PCV) 2021 RSV Immunization Adult Patients (1 - Risk 50-74 years 1-dose series) 2021 Social Influencers of Health Screening 05/01/2022 Depression [...] Results * Annual BMP Blood Test (05/13/2023) [facility] Annual BMP Blood Test abstracted Historical Provider HEALTH MAINTENANCE Final Result * HIV Screening (01/29/2023) [facility] HIV Screening abstracted Historical Provider HEALTH MAINTENANCE Final Result * Hepatitis C Screening (01/29/2023) [facility] Hepatitis C Screening abstracted Historical Provider HEALTH MAINTENANCE Final Result * Lipid panel (01/29/2023) LDL/HDL Ratio 0 Comment:no interpretation Triglycerides 0 mg/dL Comment:no interpretation Cholesterol 0 mg/dL Comment:no interpretation HDL 0 mg/dL Comment:no interpretation LDL Cholesterol 0 mg/dL Comment:no interpretation Blood Venous blood specimen / Unknown Historical Provider LAB BLOOD ORDERABLES Hayley l Result * Cervical Cancer Screening: HPV (10/30/2022) Pathologist [facility] Cervical Cancer Screening: HPV no interpretation , abstracted Historical Provider HEALTH MAINTENANCE Final Result from Last 3 Months or Most Recently Relevant to Health Maintenance Insurance MEDICAID - [place] Care Teams Clinical Laboratory Scientist Relationship Specialty Start Date End Date Justin Rojo NP [address] [place] [address] PCP - General 03/20/23
== END 2025-03-24 12:29 | disposition home or self-care (01) ==
LOC: HO.HWSM 10:50
PROVIDERS: PCP Student in an Organized Health Care Education/Training Program; Visit Provider Advanced Practice Midwife
DX: Z01.419 Encounter for gynecological examination (general) (routine) without abnormal findings (principal); E66.01 Morbid (severe) obesity due to excess calories; Z68.31 Body mass index [BMI] 31.0-31.9, adult; Z90.711 Acquired absence of uterus with remaining cervical stump
CPT/HCPCS: 99396; 99459

== ENCOUNTER → 2025-03-24 10:50 | Outpatient (BNVA) | payer MEDICAID, SELFPAY | PROVIDERS: PCP Student in an Organized Health Care Education/Training Program; Visit Provider Advanced Practice Midwife | DX: Z01.419 Encounter for gynecological examination (general) (routine) without abnormal findings (principal); E66.01 Morbid (severe) obesity due to excess calories; Z90.711 Acquired absence of uterus with remaining cervical stump | CPT/HCPCS: 99396; 99459 ==

== ENCOUNTER 2025-03-25 12:00 | Outpatient (REF) | payer MEDICAID, SELFPAY ==
--- OUTSIDE RECORDS SUMMARY | 2025-03-28 13:34 | XMS_ITS | Encounter Summary ---
Author Organization [employer] Address [address] [place] [address] Care Team Providers Care Senior Erp Consultant Name Role Phone Linette Ventura MD Primary Care Pro vider Justin Rojo Unavailable Unavailable Encounter Details Date Type Department Care Team (Late st Contact Info) Description 11/03/2023 Orders Only [facility] MEDICINE [address] [place] [address] Provider, MD Jared Social History Tobacco Use [...] Care Team (Late st Contact Info) Description 03/30/2025 11:00 AM EDT Office Visit [facility] CHC ADULT DENTAL [address] [place] [address] Terry Peña DDS [address] [place] [address] documented as of this encounter Procedures Procedure Name Priority Date/Time Associated Diagnosis Comments BI MAMMOGRAM DIAGNOSTIC TOMOSYNTHESIS RIGHT Routine 11/05/2023 11:38 AM EDT HM COLONOSCOPY Routine 08/25/2019 12:29 PM EDT documented in this encounter Results * BI Mammogram Diagnostic Tomosynthesis Right (11/05/2023 11:38 AM EDT) Anatomical Region Laterality Modality Breast Right Mammography 11/05/2023 11:3 8 AM EDT Narrative 11/05/2023 12:24 PM EDT [facility] [address] [place] [address] [place] [address] Mammography Report Signed Patient: Carla Grant MR#: [id number] : 1970 Acct:[id number] Age/Sex: 53 / F ADM Date: 11/05/23 Loc: [facility] Attending Dr: Linette Levy MD Ordering Physician: Linette Ventura MD Results: 3.6MProbably Benign Finding - Short 6 M F/U Suggested Date of Service: 11/05/23 Follow Up: 6 Month F/U Procedure(s): MM tomosynthesis diagnostic RT Accession Number(s): [id number] cc: Linette Ventura MD EXAMINATION: MM DIAGNOSTIC [...] in OV> 11/05/23 1221 DD/ 1138 TD/TT: Emergency Veterinary Technician: Procedure Note Donotuseinterpreter, Image - 11/05/2023 [facility] [address] [place], [place] [address] Mammography Report Signed Patient: Carla GrantMR#: [id number] : 1970Acct:[id number] Age/Sex: 53 / FADM Date: 11/05/23 Loc: [facility] Attending Dr: Linette Levy MD Ordering Physician: Linette Ventura MD Results: 3.6MProbably Benign Finding - Short 6 M F/U Suggested Date of Service: 11/05/23Follow Up: 6 Month F/U Procedure(s): MM tomosynthesis diagnostic RT Accession Number(s): [id number] cc: Linette Ventura MD EXAMINATION: MM DIAGNOSTIC [...] in OV> 11/05/23 1221 DD/ 1138 TD/TT: Emergency Veterinary Technician: us Linette Levy MD IMG BI PROCEDURES Final Result * Hm Colonoscopy (08/25/2019 12:29 PM EDT) us Historical Provider HEALTH MAINTENANCE Final Result documented in this encounter Visit Diagnoses Not on filedocumented in this encounter Additional Health Concerns Assessment Noted Time PHQ-9 Depression Total Score: 0 11/03/19 24 9:02 AM EDT documented as of this encounter Care Teams Senior Erp Consultant Relationship Specialty Start Date End Date Linette Ventura MD [address] [place] [address] PCP - General Internal Medicine 12/06/22 Justin Rojo FNP [address] [place] [address] Nurse Practitioner Family Medicine 05/05/23 documented as of this encounter
--- OUTSIDE RECORDS SUMMARY | 2025-03-28 13:34 | XMS_ITS | Encounter Summary ---
Author Organization [employer] Address [address] [facility] [address] [place] [address] Care Team Providers Care Sweeper Brush Maker Machine Name Role Phone Linette Ventura MD Primary Care Pro vider Justin Rojo Unavailable Unavailable Reason for Visit * Reason Comments Med Refill Encounter Details Date Type Department Care Team (Late st Contact Info) Description 09/14/2024 Refill [facility] CHC MED & PEDS [address] [place], [place] [phone] Melanie Zacarias MD [address] [place], [place] [phone] Lower leg edema Social History Tobacco Use [...] Description 03/30/2025 11:00 AM EDT Office Visit [facility] CHC ADULT DENTAL [address] [place] [address] Terry Peña DDS [address] [place] [address] documented as of this encounter Visit Diagnoses Diagnosis Lower leg edema documented in this encounter Additional Health Concerns Assessment Noted Time PHQ-9 Depression Total Score: 0 01/27/20 24 10:46 AM EDT documented as of this encounter Care Teams Sweeper Brush Maker Machine Relationship Specialty Start Date End Date Linette Ventura MD [address] [place] [address] PCP - General Internal Medicine 12/06/22 Justin Rojo FNP [address] [place] [address] Nurse Practitioner Family Medicine 05/05/23 documented as of this encounter
--- OUTSIDE RECORDS SUMMARY | 2025-03-28 13:34 | XMS_ITS | Clinical Summary ---
Author Organization [facility] Address [address] [phone] Phone Care Team Providers Care Certified Tower Climber Name Role Phone Unknown, Unknown Primary Care [...] file Medical Devices Not on file Insurance [employer] [facility] [place] [employer] [facility] [place] [facility] EPO [facility] EPO [employer] [facility] EPO Care Teams Certified Tower Climber Relationship Specialty Start Date End Date Unknown, Unknown, PCP - General 06/06/17 Additional Source Comments The information contained in this document represents components of the legal health record. It is not the complete legal health record.[facility]
--- OUTSIDE RECORDS SUMMARY | 2025-03-28 13:34 | XMS_ITS | Encounter Summary ---
Author Organization [employer] Address [address] [facility] [address] [place] [address] Care Team Providers Care Fish Receiver Name Role Phone Linette Ventura MD Primary Care Pro vider Justin Rojo Unavailable Unavailable Reason for Visit * Reason Comments Med Refill Encounter Details Date Type Department Care Team (Late st Contact Info) Description 06/15/2023 Refill [facility] MEDICINE [address] [place], [place] [phone] Linette Ventura MD [address] [place], [place] [phone] Social History Tobacco Use Types Packs/Day Years [...] Description 03/30/2025 11:00 AM EDT Office Visit [facility] ADULT D[facility]AL [address] [place] [address] Terry Peña DDS [address] [place] [address] documented as of this encounter Visit Diagnoses Not on filedocumented in this encounter Additional Health Concerns Assessment Noted Time PHQ-9 Depression Total Score: 0 05/15/20 9:10 AM EST documented as of this encounter Care Teams Fish Receiver Relationship Specialty Start Date End Date Linette Ventura MD [address] [place] [address] PCP - General Internal Medicine 12/06/22 Justin Rojo FNP [address] [place], [place] Nurse Practitioner Family Medicine 05/05/23 documented as of this encounter
--- OUTSIDE RECORDS SUMMARY | 2025-03-28 13:34 | XMS_ITS | Clinical Summary ---
Author Organization [employer] Address [address] [facility] [address] [place] [address] Care Team Providers Care Mortgage Processing Clerk Name Role Phone Linette Ventura MD Primary Care Pro vider Justin Rojo Unavailable Unavailable Allergies Active Allergy Reactions Criticality Noted Date Comments Oxycodone Hallucinations 06/14/2013 Medications calcium carbonate (Tums Ultra 1000) 1000 MG chewable tablet Chew 2 tablets every 12 (twelve) hours. 10/04/19 22 Active Blood Pressure Monitor kit 1 kit in the morning. 1 kit 03/25/20 23 Active buPROPion XL (Wellbutrin XL) 300 MG 24 hr tabletIndicati ons:Anxiety and depression TAKE 1 TABLET BY MOUTH EVERY DAY. DO NOT CRUSH, CHEW OR SPLIT. 90 tablet 3 11/03/19 25 Active Ketotifen Fumarate 0.035 % solution ADMINISTER 1 DROP INTO BOTH EYES EVERY 12 HOURS. 15 mL 11/12/19 25 Active hydrOXYzine HCl (Atarax) 25 MG tabletIndicati ons:Anxiety and depression TAKE 1-2 TABLETS BY MOUTH EVERY 6 HOURS IF NEEDED FOR ANXIETY 200 tablet 1 01/19/20 25 Active ergocalciferol (Vitamin D2) 1.25 MG (35591 UT) capsule TOME 1 CAPSULA POR VIA ORAL SCOTT VEZ POR SEMANA 12 capsule 02/09/20 25 Active omeprazole (PriLOSEC) [address] capsule Take 1 capsule (20 mg) by mouth before breakfast. 90 capsule 02/10/20 25 Active famotidine (Pepcid) 20 MG tablet Take 1 tablet (20 mg) by mouth if needed at bedtime for heartburn. 90 tablet 02/10/20 25 Active Zepbound 15 MG/0.5ML solution auto-injector INJECT 1 PEN UNDER THE SKIN ONCE WEEKLY 01/21/20 25 Active busPIRone (Buspar) 10 MG tablet Take 1 tablet (10 mg) by mouth 2 times daily. 60 tablet 2 03/17/20 25 026 Active furosemide (Lasix) 20 MG tabletIndicati ons:Lower leg edema TAKE 1 TABLET BY MOUTH 2 TIMES A WEEK ONLY NEEDED FOR LEG SWELLING 24 tablet 03/19/20 25 Active cetirizine (ZyrTEC) 10 MG tabletIndicati ons:Seasonal allergic rhinitis, unspecified trigger TOME SCOTT TABLETA DIARIAMENTE CUANDO SEA NECESARIO 90 tablet 03/21/20 25 Active furosemide (Lasix) 20 MG tabletIndicati ons:Lower leg edema Take 1 tablet by mouth every other day as needed for swelling/lower extremity edema 45 tablet 10/06/19 25 025 Discontinued cetirizine (ZyrTEC) 10 MG tabletIndicati ons:Seasonal allergic rhinitis, unspecified trigger TOME SCOTT TABLETA DIARIAMENTE CUANDO SEA NECESARIO 90 tablet 12/21/19 25 025 Discontinued busPIRone (Buspar) 5 MG tablet Take 1 tablet (5 mg) by mouth 2 times daily. 60 tablet 2 02/10/20 25 025 Discontinued(R eorder (will not trigger notification to Pharmacy)) furosemide (Lasix) 20 MG tabletIndicati ons:Lower leg edema Take 1 tablet (20 mg) by mouth if needed each day (leg swelling). Take 1 tablet by mouth every other day as needed for swelling/lower extremity edema 15 tablet 03/15/20 25 025 Discontinued furosemide (Lasix) 20 MG tabletIndicati ons:Lower leg edema Take 1 tablet (20 mg) by mouth 2 (two) times a week. To take twice a day only as needed for leg swelling 8 tablet 1 03/17/20 25 025 Discontinued(R eorder (will not trigger notification to Pharmacy)) furosemide (Lasix) 20 MG tabletIndicati ons:Lower leg edema Take 1 tablet (20 mg) by mouth 2 (two) times a week. To take twice a week only as needed for leg swelling 8 tablet 1 03/17/20 25 025 Discontinued Active Problems Problem Noted [...] medication management. Any issues or concerns, contact [facility]. All her questions were answered and [...] Encounters Date Type Department Care Team Description 03/19/2025 Refill [facility] MED & PEDS [address] [place], [place] [phone] Linette Ventura MD Seasonal allergic rhinitis, unspecified trigger 03/17/2025 Refill [facility] MEDICINE [address] [place] [address] Linette Ventura MD Lower leg edema 03/17/2025 Orders Only [facility] MEDICINE [address] [place] [address] Linette Ventura MD Lower leg edema 03/17/2025 Orders Only [facility] MED[facility]INE [address] [place] [address] Linette Ventura MD 03/16/2025 Telephone [facility] MED[facility]INE [address] [place] [address] Linette Ventura MD Medication Question 03/15/2025 Refill [facility] MED[facility]INE [address] [place] [address] Linette Ventura MD Lower leg edema 03/15/2025 Refill [facility] MED[facility]INE [address] [place] [address] Linette Ventura MD Lower leg edema 02/09/2025 10:45 AM EDT Office Visit [facility] MEDICINE [address] [place] [address] Linette Ventura MD Annual physical exam (Primary Dx); Hypertension, unspecified type; Class 3 severe obesity due to excess calories without serious comorbidity with body mass index (BMI) of 45.0 to 49.9 in adult; Health care maintenance; Gastroesophageal reflux disease with esophagitis, unspecified whether hemorrhage; Anxiety and depression; Edema of lower extremity; Lymphedema 02/09/2025 Telephone [facility] MEDICINE [address] [place] [address] Linette Ventura MD Durable Medical Equipment 02/09/2025 Travel 02/08/2025 Telephone [facility] MEDICINE [address] [place] [address] Linette Ventura MD CHART PREP 02/08/2025 Refill [facility] MED[facility]INE [address] [place] [phone] Linette Ventura MD 02/01/2025 Patient Outreach [address] [address] Linette Ventura MD Pre-visit Planning ([facility] screening was completed on 08/31/2024) 01/18/2025 Refill [facility] MEDICINE [address] [place] [address] Linette Ventura MD Anxiety and depression from Last 3 Months Immunizations Immunization Administration [...] 02/09/2025 11:35 AM EDT Plan of Treatment Upcoming Encounters Date Type Department Care Team (Late st Contact Info) Description 03/30/2025 11:00 AM EDT Office Visit [facility] CHC ADULT DENTAL [address] [place], [place] [phone] Terry Peña DDS [address] [place] [address] Health Maintenance Due Date Last Done Comments [...] Colorectal Cancer Screening 08/24/2024 COVID-19 Vaccine ( season) 2025 01/22/2023 Influenza Vaccine (#1) 2025 03/26/2011, 2006 Diagnostic Breast Imaging 02/18/2025 08/18/2024, 10/2023 SDOH Screening 08/31/2025 08/31/2024 Alcohol/Substance Use Screening 09/14/2025 09/14/2024 Disability Screening 09/14/2025 09/14/2024 Pap Smear 10/31/2025 10/31/2022, 10/30/2022 Depression Screening 02/09/2026 02/09/2025, 02/10/20 Tobacco Screening 02/09/2026 02/09/2025 Dental X-Ray: Full Mouth 08/20/2026 08/20/2023, 06/2021 Cervical Cancer Screening 10/31/2027 HPV/Cotest 10/31/2027 [...] Associated Diagnosis Comments BI MAMMOGRAM DIAGNOSTIC TOMOSYNTHESIS BILATERAL Routine 08/18/2024 [...] PM EDT Narrative 08/18/2024 2:08 PM EDT [facility] [address] [place] [address] Mammography Report Signed Patient: Carla Grant MR#: [id number] : 1970 Acct:[id number] Age/Sex: 54 / F ADM Date: 08/18/24 Loc: HO.MAMMO Attending Dr: Linette Levy MD Ordering Physician: Linette Ventura MD Results: 3.12MProbably Benign Finding - 12 month F/U Suggested Date of Service: 08/18/24 Follow Up: 12 month diagnos tic follow up Procedure(s): MM tomosynthesis diagnostic BI Accession Number(s): [id number] cc: Linette Ventura MD EXAMINATION: MM DIAGNOSTIC [...] Suárez DO 08/18/2024 02:05 PM EDT RP Dictated By: Tati Suárez DO Signed By: <Electronically signed by Tati Suárez DO in OV> 08/18/24 1405 DD/ 1330 TD/TT: 08/18/24 1348 Associate Vice President: Procedure Note Donotuseinterpreter, Image - 08/18/2024 [facility] [address] [place] [address] Mammography Report Signed Patient: Carla GrantMR#: [id number] : 1970Acct:[id number] Age/Sex: 54 / FADM Date: 08/18/24 Loc: HO.MAMMO Attending Dr: Linette Levy MD Ordering Physician: Linette Ventura MD Results: 3.12MProbably Benign Finding - 12 month F/U Suggested Date of Service: 08/18/24Follow Up: 12 month diagnos tic follow up Procedure(s): MM tomosynthesis diagnostic BI Accession Number(s): [id number] cc: Linette Ventura MD EXAMINATION: MM DIAGNOSTIC [...] their next mammogram. Electronically signed by: Tati Suáerz DO 08/18/2024 02:05 PM EDT Dictated By: Tati Suárez DO Signed By: <Electronically signed by Tati Suárez DO in OV> 08/18/24 1405 DD/ 1330 TD/TT: 08/18/24 1348 Associate Vice President: Linette Levy MD IMG BI PROCEDURES Final Result * Hepatitis C Antibody with Reflex to HCV, RNA, Quantitative, Real-Time PCR (03/25/2024 9:30 AM EDT) Hepatitis C Antibody Nonreactive Nonreactive [facility] Comment:Antibodies to HCV no t detected; does not exclude early acuteHCV infection. Blood Venous blood specimen / Unknown 03/25/2024 9:30 AM EDT 03/25/2024 10:59 AM EDT Linette Levy MD LAB BLOOD ORDERAB LES Final Result [facility] [address] [place] [phone] * HIV-1/2 Antigen and Antibodies, Fourth Generation, with Reflexes (03/25/2024 9:30 AM EDT) HIV AB/AG Nonreactive Nonreactive [facility] Comment:HIV-1 p24 Ag and/or HIV-1/HIV-2 Ab not detected.A test result that is nonreactive does not exclude thepossibility of exposure to or infection with HIV-1 and/orHIV-2. Nonreactive results in this assay for individualswith prior exposure to HIV-1 and/or HIV-2 may be due toantigen and antibody levels that are below the limit ofdetection of this assay.The iSirona HIV Ag/Ab Combo assay result andsupplemental assay results should be interpreted inconjunction with the patient's clinical presentation,history and other laboratory results. If the results areinconsistent with clinical evidence, additional testing issuggested to confirm the result. Blood Venous blood specimen / Unknown 03/25/2024 9:30 AM EDT 03/25/2024 10:59 AM EDT us Linette Levy MD LAB BLOOD ORDERAB LES Final Result [facility] [address] [place] [phone] * (ABNORMAL) Lipid Panel, Standard (03/25/2024 9:30 AM EDT) Triglycerides 81 <150 mg/dL [facility] Comment:Desirable Triglyceri de: less than 150 mg/dLBorderline High Triglyceride 150-199 mg/dLHigh Triglyceride: 200-499 mg/dLVery High Triglyceride: greater than or equal to 5OO mg/dL Cholesterol 188 <200 mg/dL [facility] Comment:Desirable Cholestero l: less than 200 mg/dLBorderline High Cholesterol: 200-239 mg/dLHigh Cholesterol: greater than 239 mg/dL LDL Cholesterol Calculated 111(H) <100 mg/dL [facility] Comment:Desirable LDL: less than 100 mg/dLNear Optimal/Above Optimal LDL: 110- 129 mg/dLBorderline High LDL: 130-159 mg/dLHigh LDL: 160-189 mg/dLVery High LDL: greater than or equal to 190 mg/dL HDL Cholesterol 61 >40 mg/dL [facility] Comment:Desirable HDL: great er than 40 mg/dL Note: This HDL assay may give artificially low results in patients with liver disease. Blood Venous blood specimen / Unknown 03/25/2024 9:30 AM EDT 03/25/2024 10:59 AM EDT Linette Levy MD LAB BLOOD ORDERAB LES Final Result [facility] [address] [place] [phone] * Pap Smear (10/31/2022) Pap smear NILM HPV neg Historical Provider HEALTH MAINTENANCE Final Result * HPV mRNA E6/E7 w/Reflex to HPV Genotypes 16, 18/45 (10/30/2022 2:48 PM EDT) HPV nRNA E6/E7 Not Detected Not Detected [facility] Comment:Methodology: Transcr iption-Mediated AmplificationThis assay detects E6/E7 viral messenger RNA (mRNA) from 14high-risk HPV types (16,18,31,33,35,39,45,51,52,56,58,59,66,68).Cervical sources are required for HPV testing.If a vaginal source from a patient who has had atotal hysterectomy with removal of cervix wassubmitted, please contact the testing laboratoryfor alternative testing options.For additional information, please refer [email or web address]/IHP087j0(This link if provided for information/educational purposes only.)THIS TEST WAS PERFORMED AT:[employer] [place] [phone] GATES MD HPV mRNA E6/E7 TNP [facility] HPV 16 RNA TNP [facility] HPV 18/45 RNA TNP [facility] 10/30/2022 2:48 PM EDT 10/31/2022 8:30 AM EDT [facility] External Provider LAB CYT OLOGY ORDERABLES Final Result [facility] [address] [place] [phone] [phone] * Hm Colonoscopy (08/25/2019 12:29 PM EDT) Historical Provider MD HEALTH MAINTENANCE Final Result from Last 3 Months or Most Recently Relevant to Health Maintenance Insurance [facility] C3 DENTAL-[facility] MEDICAID STAND ADULT Care Teams Mortgage Processing Clerk Relationship Specialty Start Date End Date Linette Ventura MD [address] [place] [address] PCP - General Internal Medicine 12/06/22 Justin Rojo FNP [address] [place] [address] Nurse Practitioner Family Medicine 05/05/23
--- OUTSIDE RECORDS SUMMARY | 2025-03-28 13:34 | XMS_ITS | Encounter Summary ---
Author Organization [employer] Address [address] [facility] [address] [place] [address] Care Team Providers Care Rfid Analyst Name Role Phone [employer] Primary Care Provider Linette Olson MD Primary Care Pro vider Justin Rojo Unavailable Unavailable Reason for Visit * Reason Comments Med Refill Encounter Details Date Type Department Care Team (Late st Contact Info) Description 07/03/2022 Refill [facility] MEDICINE [address] [place] [address] Justin Rojo FNP Anxiety and depression (Primary [...] Description 03/30/2025 11:00 AM EDT Office Visit [facility] CHC ADULT DENTAL [address] [place] [address] Terry Peña DDS [address] [place] [address] documented as of this encounter Visit Diagnoses Diagnosis Anxiety and depression- Primary documented in this encounter Additional Health Concerns Assessment Noted Time PHQ-9 Depression Total Score: 0 06/13/19 10:39 AM EST documented as of this encounter Care Teams Rfid Analyst Relationship Specialty Start Date End Date Tigist Bartholomew FNP PCP - General Family Medicine 12/09/21 12/05/22 Linette Ventura MD [address] [place] [phone] PCP - General Internal Medicine 12/06/22 Justin Rojo FNP [address] [place] [phone] Nurse Practitioner Family Medicine 05/05/23 documented as of this encounter
--- OUTSIDE RECORDS SUMMARY | 2025-03-28 13:34 | XMS_ITS | Encounter Summary ---
Author Organization [employer] Address [address] [facility] 7t [place] [address] Care Team Providers Care Licensed Loan Officer Name Role Phone Puma Tigistjaime Mills PROGRESS DEVELOPER Primary Care Provider Linette Olson MD Primary Care Pro vider Justin Rojo PROGRESS DEVELOPER Unavailable Unavailable Encounter Details Date Type Department Care Team (Late st Contact Info) Description 07/03/2022 Orders Only [facility] MEDICINE [address] [place] [address] Carly Hollingsworth LPN Social History Tobacco Use [...] Description 03/30/2025 11:00 AM EDT Office Visit [facility] CHC ADULT DENTAL [address] [place] [address] Peña Terry, DDS [address] [facility] [place] [address] documented as of this encounter Procedures Procedure Name Priority Date/Time Associated Diagnosis Comments HEPATITIS C ANTIBODY REFLEX Routine 01/29/2023 10:21 AM EDT HIV ANTIBODY/ANTIGEN ([place] D[facility]) Routine 01/29/2023 10:21 AM EDT VITAMIN [...] EDT) Hepatitis B Surface Ag Negative Negative [facility] 01/29/2023 10:2 1 AM EDT 01/29/2023 11:25 AM EDT Linette Levy MD LAB BLOOD ORDERAB LES Final Result [facility] [address] [place] [phone] * HIV Ab/Ag ([place] D[facility]) (01/29/2023 10:21 AM EDT) HIV AB/AG Nonreactive Nonreactive [facility] Comment:HIV-1 p24 Ag and/or HIV-1/HIV-2 Ab not detected.A test result that is nonreactive does not exclude thepossibility of exposure to or infection with HIV-1 and/orHIV-2. Nonreactive results in this assay for individualswith prior exposure to HIV-1 and/or HIV-2 may be due toantigen and antibody levels that are below the limit ofdetection of this assay.The [employer] [facility] HIV Ag/Ab Combo assay result andsupplemental assay results should be interpreted inconjunction with the patient's clinical presentation,history and other laboratory results. If the results areinconsistent with clinical evidence, additional testing issuggested to confirm the result. 01/29/2023 10:2 1 AM EDT 01/29/2023 11:25 AM EDT us Linette Levy MD LAB BLOOD ORDERAB LES Final Result Performing Organization Address City/[facility]/ZIP Co de Phone Number [facility] [address] [place] [phone] * Hepatitis C Antibody Reflex (01/29/2023 10:21 AM EDT) Hepatitis C Antibody Nonreactive Nonreactive [facility] Comment:Antibodies to HCV no t detected; does not exclude early acuteHCV infection. 01/29/2023 10:2 1 AM EDT 01/29/2023 11:25 AM EDT Linette Levy MD LAB BLOOD ORDERAB LES Final Result Performing Organization Address City/[facility]/ZIP Co de Phone Number [facility] [address] [place] [address] [phone] * Vitamin D, 25-Hydroxy, Total, Immunoassay (01/29/2023 10:21 AM EDT) Vitamin D 25-OH Total 16.4 >30 ng/mL [facility] Comment:Health Based Referen ce Values*< 20 ng/mL Eropkbmfb64-08 ng/mL Insufficient> 30 ng/mL Sufficient*Merissa OQUENDO. N [...] ORDERAB LES Final Result Performing Organization Address City/[facility]/ZIP Co de Phone Number [facility] [address] [place] [address] [phone] * Pap Smear (10/30/2022 2:48 PM EDT) 10/30/2022 2:48 PM EDT 10/31/2022 8:30 AM EDT Narrative [facility] - 11/18/2022 1:18 PM EDT ----- ------- Name: Carla Grant Age/Sex: 52/F : 1970 Unit#: [id number] Attend Dr: Marilia Julien [facility] Re10/30/22 Status: DEP REF Location: [facility] Disch: ----- ------- SPEC : [id number] RECD: 10/31/22 STATUS: YADIAna ANTONIO NUM: [id number] HEMALATHA: 10/30/22-1448 [facility] DR: Marilia Julien [facility] ENTERED: 10/31/22 SP TYPE: Pap Smr OTHR DR: Tigist Bartholomew ORDERED: Pap Smear Interpretation Satisfactory for evaluation. Negative for intraepithelial lesion or malignancy. HPV mRNA E6/E7: NOT DETECTED This assay detects E6/E7 viral messenger RNA (mRNA) from 14 high-risk HPV types (16, 18, 31, 33, 35, 39, 45, 51, 52, 56, 58, 59, 66, 68) HPV testing performed by [employer], [place], [place]. See reference laboratory portion of the EMR for entire report. Clinical Information LMP: Unknown date Previous PAP test: 07/15/18, Unknown findings Material Received ThinPrep-Vaginal Copies To: Marilia Julien [address] Patterson [address] [place] [phone] Tigist Bartholomew [facility] [address] [place] [address] ----- ------- Signed (signature on file) Sruthi Hartman 11/18/22 1318 ----- ------- END OF REPORT [facility] External Provider LAB [facility]T [facility] ORDERABLES Final Result [facility] [address] [place] [address] [phone] * HPV mRNA E6/E7 w/Reflex to HPV Genotypes 16, 18/45 (10/30/2022 2:48 PM EDT) HPV nRNA E6/E7 Not Detected Not Detected [facility] Comment:Methodology: Transcr iption-Mediated AmplificationThis assay detects E6/E7 viral messenger RNA (mRNA) from 14high-risk HPV types (16,18,31,33,35,39,45,51,52,56,58,59,66,68).Cervical sources are required for HPV testing.If a vaginal source from a patient who has had atotal hysterectomy with removal of cervix wassubmitted, please contact the testing laboratoryfor alternative testing options.For additional information, please refer [email or web address].[email or web address]/PJJ671g8(This link if provided for information/educational purposes only.)THIS TEST WAS PERFORMED AT:[facility] [place] [phone] GATES MD HPV mRNA E6/E7 [facility] HPV 16 RNA [facility] HPV 18/45 RNA TNP [facility] 10/30/2022 2:48 PM EDT 10/31/2022 8:30 AM EDT [facility] External Provider LAB CYT OLOGY ORDERABLES Final Result Performing Organization Address City/[facility]/ZIP Co de Phone Number [facility] [address] [place] [phone] * SureSwab?? Advanced Vaginitis, TMA (10/30/2022 1:31 PM EDT) Trichomonas DNA Probe Negative Negative [facility] Gardnerella DNA Probe Negative Negative [facility] Lydia DNA Probe Negative Negative [facility] 10/30/2022 1:31 PM EDT 10/30/2022 3:57 PM EDT [facility] Exter nal Provider LAB BODY FLUIDS AND STOOLS ORDERABLES Final Result Performing Organization Address [facility] Co de Phone Number [facility] [address] [place] [phone] * Chlamydia/N. Gonorrhoeae RNA, TMA, Urogenitial (10/30/2022 1:31 PM EDT) CT PCR NOT DETECTED Not Detect. [facility] Comment:A not detected test result [...] psychologicalconsequences. NG PCR NOT DETECTED Not Detect. [facility] Comment:A not detected test result [...] 1:31 PM EDT 10/30/2022 3:57 PM EDT [facility] - 10/30/2022 6:41 PM EDT Vaginal [facility] Exter nal Provider LAB MICROBIOLOGY - GENERAL ORDERABLES Final Result Performing Organization Address City/State/[facility] Co de Phone Number [facility] [address] [place] [phone] * Gross and Microscopic Level 3 (09/06/2022 8:06 AM EDT) 09/06/2022 8:06 AM EDT 09/06/2022 8:47 AM EDT [facility] - 09/09/2022 1:59 PM EDT ----- ------- Name: Carla Grant Age/Sex: 52/F : 1970 [id number]#: [id number] Attend Dr: Fili Adorno MD Re09/06/22 Status: [facility] Location: [facility] Disch: ----- ------- SPEC : [id number] RECD: 09/06/22 STATUS: KAROLINA ALVAREZ NUM: [id number] HEMALATHA: 09/06/[address]: Fili Adorno MD ENTERED: 09/06/22 SP [...] are identified. No lymph nodes are identified. Qa Tech sections are submitted in a single cassette labeled A1. CEDS Copies To: Tigist Bartholomew [address] [place] [address] Fili Adorno MD [address] [place] [address], 3rd [place] [address] [email or web address] ----- ------- Signed (signature on file) Kailey Evans 09/09/22 1359 ----- ------- END OF REPORT [facility] External Provider LAB CYT OLOGY ORDERABLES Final Result Performing Organization Address [facility] de Phone Number [facility] [address] [place] [address] [phone] * Creatinine, Serum (07/17/2022 3:18 PM EST) Creatinine, Serum 0.90 0.5 - 1.4 mg/dL [facility] Estimated Glomerular Filt Rate >60 [facility] Comment:NOTE: For -Am erican individuals, multiply the result by 1.210.Chronic Kidney Disease: Estimated GFR < 60 mL/min/1.98d0Trqdrh Kidney Disease: Estimated GFR < 15 mL/min/1.73m2 07/17/2022 3:18 PM EST 07/17/2022 3:18 PM EST [facility] External Provider LAB BLO OD ORDERABLES Final Result Performing Organization Address [facility] de Phone Number [facility] [address] [place] [address] [phone] * BUN (Blood Urea Nitrogen) (07/17/2022 3:18 PM EST) Urea Nitrogen (BUN) 11 9 - 16 mg/dL [facility] 07/17/2022 3:18 PM EST 07/17/2022 3:18 PM EST us [facility] External Provider LAB BLO OD ORDERABLES Final Result [facility] [address] [place] [phone] documented in this encounter Visit Diagnoses Not on filedocumented in this encounter Additional Health Concerns Assessment Noted Time PHQ-9 Depression Total Score: 0 06/13/19 10:39 AM EST documented as of this encounter Care Teams Licensed Loan Officer Relationship Specialty Start Date End Date Tigist Bartholomew FNP PCP - General Family Medicine 12/09/21 12/05/22 Linette Ventura MD [address] [place] [address] PCP - General Internal Medicine 12/06/22 Justin Rojo FNP [address] [place] [address] Nurse Practitioner Family Medicine 05/05/23 documented as of this encounter
--- OUTSIDE RECORDS SUMMARY | 2025-03-28 13:34 | XMS_ITS | Encounter Summary ---
Author Organization [employer] Address [address] [facility] 7t [place] [address] Care Team Providers Care Zigzag Topstitcher Name Role Phone Linette Ventura MD Primary Care Pro vider Justin Rojo Unavailable Unavailable Reason for Visit * Reason Comments Med Change Request Encounter Details Date Type Department Care Team (Late st Contact Info) Description 06/17/2023 Refill [facility] MEDICINE [address] [place], [place] [phone] Linette Ventura MD [address] [place], [place] [phone] Social History Tobacco Use Types Packs/Day Years [...] Description 03/30/2025 11:00 AM EDT Office Visit [facility] ADULT DENTAL [address] [place] [address] Terry Peña DDS [address] [place] [address] documented as of this encounter Visit Diagnoses Not on filedocumented in this encounter Additional Health Concerns Assessment Noted Time PHQ-9 Depression Total Score: 0 05/15/20 9:10 AM EST documented as of this encounter Care Teams Zigzag Topstitcher Relationship Specialty Start Date End Date Linette Ventura MD [address] [place] [address] PCP - General Internal Medicine 12/06/22 Justin Rojo FNP [address] [place], [place] Nurse Practitioner Family Medicine 05/05/23 documented as of this encounter
--- OUTSIDE RECORDS SUMMARY | 2025-03-28 13:34 | XMS_ITS | Encounter Summary ---
Author Organization [employer] Address [address] [facility] 7t [place] [address] Care Team Providers Care Rivet Passer Name Role Phone Linette Ventura MD Primary Care Pro vider Justin Rojo Unavailable Unavailable Reason for Visit * Reason Comments Med Change Request Encounter Details Date Type Department Care Team (Late st Contact Info) Description 10/25/2024 Refill [facility] MEDICINE [address] [place], [place] [phone] Linette Ventura MD [address] [place], [place] [phone] Lower leg edema Social History Tobacco Use [...] Description 03/30/2025 11:00 AM EDT Office Visit [facility] ADULT DENTAL [address] [place] [address] Terry Peña DDS [address] [place] [address] documented as of this encounter Visit Diagnoses Diagnosis Lower leg edema documented in this encounter Additional Health Concerns Assessment Noted Time PHQ-9 Depression Total Score: 0 01/27/20 24 10:46 AM EDT documented as of this encounter Care Teams Rivet Passer Relationship Specialty Start Date End Date Linette Ventura MD [address] [place] [address] PCP - General Internal Medicine 12/06/22 Justin Rojo FNP [address] [place] [address] Nurse Practitioner Family Medicine 05/05/23 documented as of this encounter
--- OUTSIDE RECORDS SUMMARY | 2025-03-28 13:34 | XMS_ITS | Clinical Summary ---
Author Organization [address] [facility] Address [address] [place] [address] Phone Care Team Providers Care Commercial Hvac Service Technician Name Role Phone Justin Rojo NP Primary Care Provider [phone] Allergies Active Allergy Reactions Criticality Noted Date [...] (BMI) of 40.0 to 44.9 in adult ([facility] V24, [facility] V28) 03/09/2024 Encounters Date Type Department Care Team Description 03/02/2025 9:30 AM EDT Consult Plastic & Reconstructive Surgery [facility] [address] [place] [phone] Fernando Morfin PA Excess skin of arm (Primary Dx) 02/17/2025 10:15 AM EDT Office Visit [facility] - [place] [address] [place] [address] Crystal Kowalski MD Postoperative intestinal malabsorption (Primary Dx); Excess skin of arm; Class 2 obesity due to excess calories with body mass index (BMI) of 36.0 to 36.9 in adult, unspecified whether serious comorbidity present from Last 3 Months Surgical History Surgery Date Site/Laterality Comments SECTION PROCEDURE: HISTORICAL DELIVERY GASTRIC BYPASS PROCEDURE: TX GASTRIC RSTCV W/BYP W/SM INT RCNSTJ LIMIT ABSRPJ OTHER SURGICAL HISTORY PROCEDURE: TX LAPS GASTRIC RESTRICTIVE PROCEDURE PLACE DEVICE OTHER SURGICAL HISTORY 06/11/2021 PROCEDURE: TX LAPS TOTAL HYSTERECT 250 GM/< W/RMVL TUBE/OVARY; [...] AM EDT Office Visit Bariatric Surgery - [address] [place] [address] Crystal Kowalski MD [address] [place] [phone] Health Maintenance Due Date Last Done [...] Results * Annual BMP Blood Test (05/13/2023) [facility] Annual BMP Blood Test abstracted Historical Provider HEALTH MAINTENANCE Final Result * HIV Screening (01/29/2023) [facility] HIV Screening abstracted Historical Provider HEALTH MAINTENANCE Final Result * Hepatitis C Screening (01/29/2023) [facility] Hepatitis C Screening abstracted Historical Provider HEALTH MAINTENANCE Final Result * Lipid panel (01/29/2023) LDL/HDL Ratio 0 Comment:no interpretation Triglycerides 0 mg/dL Comment:no interpretation Cholesterol 0 mg/dL Comment:no interpretation HDL 0 mg/dL Comment:no interpretation LDL Cholesterol 0 mg/dL Comment:no interpretation Blood Venous blood specimen / Unknown Historical Provider LAB BLOOD ORDERABLES Hayley l Result * Cervical Cancer Screening: HPV (10/30/2022) Pathologist [facility] Cervical Cancer Screening: HPV no interpretation , abstracted Historical Provider HEALTH MAINTENANCE Final Result from Last 3 Months or Most Recently Relevant to Health Maintenance Insurance MEDICAID - [place] Care Teams Commercial Hvac Service Technician Relationship Specialty Start Date End Date Justin Rojo NP [address] [place] [address] PCP - General 03/20/23
--- OUTSIDE RECORDS SUMMARY | 2025-03-28 13:34 | XMS_ITS | Encounter Summary ---
Author Organization [employer] Address [address] [facility] 7t [place] [address] Care Team Providers Care Insights Manager Name Role Phone Linette Ventura MD Primary Care Pro vider Justin Rojo Unavailable Unavailable Reason for Visit * Reason Comments Med Refill Encounter Details Date Type Department Care Team (Late st Contact Info) Description 06/11/2023 Refill [facility] MEDICINE [address] [place], [place] [phone] Melanie Zacarias MD [address] [place], [place] [phone] Social History Tobacco Use Types Packs/Day Years [...] Description 03/30/2025 11:00 AM EDT Office Visit [facility] ADULT DENTAL [address] [place] [address] Terry ePña DDS [address] [place] [address] documented as of this encounter Visit Diagnoses Not on filedocumented in this encounter Additional Health Concerns Assessment Noted Time PHQ-9 Depression Total Score: 0 05/15/20 23 9:10 AM EST documented as of this encounter Care Teams Insights Manager Relationship Specialty Start Date End Date Linette Ventura MD [address] [place] [address] PCP - General Internal Medicine 12/06/22 Justin Rojo FNP [address] [place] [address] Nurse Practitioner Family Medicine 05/05/23 documented as of this encounter
--- OUTSIDE RECORDS SUMMARY | 2025-03-28 13:34 | XMS_ITS | Encounter Summary ---
Author Organization [id number] Address [address] [facility] 7t [place] [address] Care Team Providers Care Geographic Information Systems Engineer Name Role Phone Linette Ventura MD Primary Care Pro vider Justin Rojo Unavailable Unavailable Reason for Visit * Reason Comments Med Change Request Encounter Details Date Type Department Care Team ([facility] st Contact Info) Description 01/30/2024 Refill [facility] CHC MED & PEDS [address] [place] [address] Linette Ventura MD [address] [place] [address] Anxiety and depression Social History Tobacco Use [...] Description 03/30/2025 11:00 AM EDT Office Visit [facility] CHC ADULT DENTAL [address] [place] [address] Terry Peña DDS [address] [place] [address] documented as of this encounter Visit Diagnoses Diagnosis Anxiety and depression documented in this encounter Additional Health Concerns Assessment Noted Time PHQ-9 Depression Total Score: 0 01/27/20 24 10:46 AM EDT documented as of this encounter Care Teams Geographic Information Systems Engineer Relationship Specialty Start Date End Date Linette Ventura MD [address] [place] [address] PCP - General Internal Medicine 12/06/22 Justin Rojo FNP [address] [place] [address] Nurse Practitioner Family Medicine 05/05/23 documented as of this encounter
--- OUTSIDE RECORDS SUMMARY | 2025-03-28 13:34 | XMS_ITS | Encounter Summary ---
Author Organization [employer] Address [address] [facility] 7t [place] [address] Care Team Providers Care Desk Clerk Name Role Phone Linette Ventura MD Primary Care Pro vider Justin Rojo Unavailable Unavailable Reason for Visit * Reason Comments Med Refill Encounter Details Date Type Department Care Team (Late st Contact Info) Description 06/26/2023 Refill [facility] MEDICINE [address] [place], [place] [phone] Linette Ventura MD [address] [place], [place] [phone] Fungus infection Social History Tobacco Use Types [...] 03/30/2025 11:00 AM EDT Office Visit [facility] ADULT DENTAL [address] [place] [address] Terry Peña DDS [address] [place] [address] documented as of this encounter Visit Diagnoses Diagnosis Fungus infection Other and unspecified mycoses documented in this encounter Additional Health Concerns Assessment Noted Time PHQ-9 Depression Total Score: 0 05/15/20 9:10 AM EST documented as of this encounter Care Teams Desk Clerk Relationship Specialty Start Date End Date Linette Ventura MD [address] [place] [address] PCP - General Internal Medicine 12/06/22 Justin Rojo FNP [address] [place] [address] Nurse Practitioner Family Medicine 05/05/23 documented as of this encounter
--- OUTSIDE RECORDS SUMMARY | 2025-03-28 13:34 | XMS_ITS | Encounter Summary ---
Author Organization [employer] Address [address] [place] [address] 7t [place] [address] Care Team Providers Care Ict Managers Name Role Phone Tigist Bartholomew Primary Care Provider Linette Olson MD Primary Care Pro vider Justin Rojo Unavailable Unavailable Reason for Visit * Reason Comments Med Refill Encounter Details Date Type Department Care Team (Late st Contact Info) Description 05/06/2022 Refill [facility] MEDICINE [address] [place] [address] Tigist Bartholomew FNP Social History Tobacco Use [...] Description 03/30/2025 11:00 AM EDT Office Visit [facility] CHC ADULT DENTAL [address] [place] [address] Terry Peña DDS [address] [place] [address] documented as of this encounter Visit Diagnoses Not on filedocumented in this encounter Care Teams Ict Managers Relationship Specialty Start Date End Date Tigist Bartholomew FNP PCP - General Family Medicine 12/09/21 12/05/22 Linette Ventura MD [address] [place], [place] [phone] PCP - General Internal Medicine 12/06/22 Justin Rojo FNP [address] [place] [address] Nurse Practitioner Family Medicine 05/05/23 documented as of this encounter
--- OUTSIDE RECORDS SUMMARY | 2025-03-28 13:34 | XMS_ITS | Encounter Summary ---
Author Organization [employer] Address [address] [facility] 7t [place] [address] Care Team Providers Care Baggage Checker Name Role Phone Tigist Bartholomew CLINICAL DATA MANAGER Primary Care Provider Linette Olson MD Primary Care Pro vider Justin Rojo Unavailable Unavailable Reason for Visit * Reason Onset Date Comments Referral 10/29/2022 Encounter Details Date Type Department Care Team (Late st Contact Info) Description 10/29/2022 Telephone [facility] MEDICINE [address] [place] [address] Tigist Bartholomew FNP Referral Social History Tobacco [...] Patient states Dr. Ott is now in [facility] and would like to be referred to him. Patient has no other details or phone number, curriculum writer attempted to get information and was unable to. documented in this encounter Plan of Treatment Upcoming Encounters Date Type Department Care Team (Late st Contact Info) Description 03/30/2025 11:00 AM EDT Office Visit [facility] CHC ADULT DENTAL [address] [place] [address] Terry Peña DDS [address] [place] [address] documented as of this encounter Visit Diagnoses Not on filedocumented in this encounter Additional Health Concerns Assessment Noted Time PHQ-9 Depression Total Score: 0 08/23/19 10:03 AM EDT documented as of this encounter Care Teams Baggage Checker Relationship Specialty Start Date End Date Tigist Bartholomew FNP PCP - General Family Medicine 12/09/21 12/05/22 Linette Ventura MD [address] [place] [address] PCP - General Internal Medicine 12/06/22 Justin Rojo FNP [address] [place] [address] Nurse Practitioner Family Medicine 05/05/23 documented as of this encounter
--- OUTSIDE RECORDS SUMMARY | 2025-03-28 13:35 | XMS_ITS | Encounter Summary ---
Author Organization [employer] [facility] Address [address] [facility] [address] [place] [phone] Phone Care Team Providers Care Set Illustrator Name Role Phone Unknown, Unknown Primary Care Provider Anthony vazquez Encounter Details Date Type Department Care Team (Late st Contact Info) Description 06/06/2017 Ancillary Orders [facility] [address] [place] [address] Compa Livingston DO [address] [place] [address] Palpitations Social History Tobacco Use Types Packs/Day [...] Palpitations documented in this encounter Care Teams Set Illustrator Relationship Specialty Start Date End Date Unknown, Unknown, PCP - General 06/06/17 documented as of this encounter Additional Source Comments The information contained in this document represents components of the legal health record. It is not the complete legal health record.[facility]
[2025-03-28 15:51] LABS: Bacterial Vaginosis PCR POSITIVE (Negative); Candida Group PCR NOT DETECTED (Not Detect); Candida glab krusei PCR NOT DETECTED (Not Detect); Trichomonas vaginalis PCR NOT DETECTED (Not Detect)
[2025-03-29 12:23] LABS: CT PCR NOT DETECTED (Not Detect.); NG PCR NOT DETECTED (Not Detect.)
== END 2025-03-28 10:56 | disposition home or self-care (01) ==
LOC: HO.LNP 12:00
PROVIDERS: Advanced Practice Midwife; Visit Provider Student in an Organized Health Care Education/Training Program
DX: Z01.419 Encounter for gynecological examination (general) (routine) without abnormal findings (principal); Z20.2 Contact with and (suspected) exposure to infections with a predominantly sexual mode of transmission
CPT/HCPCS: 81515; 87491; 87591

== ENCOUNTER 2025-03-28 13:37 | Outpatient (REF) | payer MEDICAID, SELFPAY | END 2025-03-28 13:38 | disposition home or self-care (01) | LOC: HO.LNP 13:37 | PROVIDERS: Visit Provider Advanced Practice Midwife | DX: Z13.89 Encounter for screening for other disorder (principal) ==